=== PATIENT | male | born 1955 | race Caucasian/White ===

== ENCOUNTER 2020-12-24 08:15 | Inpatient (IN) | payer MEDICARE, OTHER, SELFPAY ==
--- NOTE | ~2020-12-24 | US_ITS ---
EXAMINATION: US RETROPERITONEAL LIMITED (RENAL ONLY) CLINICAL INFORMATION: Acute kidney insufficiency. Urinary retention.. COMPARISON: None TECHNIQUE: Grayscale and color imaging of the kidneys FINDINGS: RIGHT KIDNEY: 11.9 x 6.3 x 6.8 cm (SAG x AP x TRV). The kidney is normal in size, contour, and echogenicity. Renal cortical thickness is normal. There is a 3 mm echogenic density in the lower pole with twinkle artifact suggestive of a stone. No focal parenchymal lesions. No hydronephrosis. LEFT KIDNEY: 11.5 x 5.9 x 5.2 cm (SAG x AP x TRV). The kidney is normal in size, contour, and echogenicity. Renal cortical thickness is normal. There is a 7 mm echogenic density with twinkle artifact suggestive of a stone in the midpole. There are 2 simple cysts in the lower pole measuring 1.6 x 1.5 x 1.2 cm and 2.7 x 2.5 x 3.5 cm. No hydronephrosis. US/US renal BI IMPRESSION: Bilateral renal stones. Left renal cysts.
[2020-12-24 08:21] VITALS: BP 144/89; PULSE 108; RESP 19; TEMP 36.6; O2SAT 95; BMI 28.1
--- NOTE | 2020-12-24 09:06 | ED.MALEGU ---
HPI - Male Genitourinary General Chief complaint: Urogenital-Male Stated complaint: bleeding in urine Time Seen by Provider: 12/24/20 09:06 Source: patient Mode of arrival: ambulatory Limitations: no limitations History of Present Illness HPI Narrative: Patient with UTI 3 months ago. Patient with difficulty urinating, burning and occaisional hematuria. Took keflex for 10 days and it was improved. Now with similar symptoms. Patient was seen in [facility] but never seen. MD Complaint: dysuria Onset (ago): month(s) Duration: intermittent Severity: moderate Associated symptoms: Reports blood in urine Related Data Allergies Allergy/AdvReac Type Severity Reaction Status Date / Time No Known Allergies Allergy Verified 12/24/20 09:10 Review of Systems Constitutional: Constitutional: Reports no additional constitutional complaints Eyes: Eyes: Reports no additional eye complaints ENT: Denies dizziness Cardiovascular: Cardiovascular: Reports no additional cardiovascular complaints Respiratory: Respiratory: Reports as per HPI Gastrointestinal: Gastrointestinal: Reports no additional gastrointestinal complaints Musculoskeletal: Musculoskeletal: Reports no additional musculoskeletal complaints Integumentary/Breasts: Skin/Breast: Denies rash Neurologic: Reports system reviewed and no additional complaints, except as documented, Denies dizziness and Denies Sensory deficit (Neuro) Psychiatric: Psychiatric: Denies anxiety PMFSH Past Medical History Medical History (Updated 12/24/20 @ 11:38 by Jose Pedraza MD) Patient denies medical problems Surgical History (Updated 12/24/20 @ 14:17 by Mirella Guadalupe NP) History of tonsillectomy History of tonsillectomy Family History Family History (Updated 12/24/20 @ 14:15 by Mirella Guadalupe NP) Brother Diabetes mellitus Father Lung cancer Mother Stroke Social History Social History (Updated 12/24/20 @ 14:16 by Mirella Guadalupe NP) Household Members: Spouse Patient Tobacco Use Status: Former Tobacco user Years Smoked: quit smoking 6 months ago Advance Directives: No Advance Directives Information Provided: No Physical Exam Vital Signs: Vital Signs: Last Vital Signs Temp 98 F 12/24/20 08:21 Pulse 101 H 12/24/20 11:42 Resp 16 12/24/20 11:42 BP 183/95 H 12/24/20 11:42 Pulse Ox 96 12/24/20 11:42 Body Mass Index 28.1 Const: General: healthy appearing Nutritional Appearance: average body habitus Orientation/consciousness: oriented to person and patient oriented x3 Limitations: no limitations HENMT: Head: Yes normal to inspection Ears: external ears normal General nose exam: Normal external nose present Mouth: Normal oral and palatal mucosa present and oropharynx normal Throat: Yes posterior oropharynx normal Eyes: General: appearance normal, both eyes and all related structures Neck: Other: supple Neck: Yes normal visual inspection Chest: Chest palpation & inspection: normal inspection of the chest Resp: Auscultation: clear to auscultation bilaterally Cardio: Jugular venous distension: no JVD Rate: regular rate Rhythm: regular rhythm Heart sounds: S1 normal heart sound present and S2 normal heart sound present GI: Inspection: Yes normal to inspection Palpation (GI): Soft to palpation, nontender and No hepatosplenomegaly present Auscultation: normal bowel sounds : General: Yes no CVA tenderness Back/Spine/Pelvis: Back: no CVA tenderness Skin: General skin exam: no rashes or lesions noted Neuro: General: oriented to person and patient oriented x3 Cranial nerves: Yes CN's II-XII intact bilaterally Motor exam (neuro): 5/5 motor strength present throughout Sensory Exam: No Sensory deficit (Neuro) Extrem: General: Yes normal to inspection Psych: Appearance: grossly normal Course Course Course Narrative: Bedside ultrasound show a bladder with at least a liter if not more of urine Reevaluation(s) Reevaluation #1: Patient put out 3 L of bloody urine, urine has 3+ bacteria, will culture and start ceftriaxone, renal insufficiency likely to long standing urinary retention, patient also now appears to be a diabetic with glucose over 600. Started fluids and sq insulin will admit Time: 11:32 [facility] - Male Genitourinary Lab Data Result diagrams: 12/24/20 09:36 12/24/20 14:20 Labs: Lab Results 12/24/20 12/24/20 12/24/20 Range/Units 09:36 09:36 09:36 WBC 9.1 (4.8-10.8) X10*3/uL RBC 4.09 L (4.60-5.80) X10*6/uL Hgb 12.2 L (14.0-18.0) g/dl Hct 36.0 L (42-52) % MCV 88.0 (80-98) fL MCH 29.8 (27.0-33.0) pg MCHC 33.9 (31.0-36.0) g/dl RDW 13.3 (11.0-16.0) % Plt Count 437 H (160-400) X10*3/uL MPV 10.5 (9.4-12.4) fL Immature Gran % (Auto) 1.9 H (0.0-0.4) % Neut % (Auto) 66.7 (45-73) % Lymph % (Auto) 13.5 L (20-40) % [place] % (Auto) 17.7 H (2-11) % Eos % (Auto) 0.0 (0-4) % Baso % (Auto) 0.2 (0-2) % Lymph # (Auto) 1.2 (1.2-4.9) X10*3/uL [place] # (Auto) 1.6 H (0.1-1.2) X10*3/uL Eos # (Auto) 0.0 (0.0-0.4) X10*3/uL Baso # (Auto) 0.0 (0.0-0.2) X10*3/uL Abs Immat Gran (auto) 0.17 H (0.00-0.03) X10*3/uL Absolute Neuts (auto) 6.1 (2.0-8.3) X10*3/uL Absolute Nucleated RBC 0.000 (0.0-0.012) X10*3/uL Nucleated RBC % (auto) 0.0 (0.0-0.2) /100WBC Smear Tech's Comments VERIFIED Sodium 127 L (135-145) mmol/L Potassium 5.3 H (3.3-5.1) mmol/L Chloride 94 L (96-108) mmol/L Carbon Dioxide 18 L (22-29) mmol/L Anion Gap 20 (12-20) BUN 52 H (9-16) mg/dL Creatinine 2.24 H (0.5-1.4) mg/dL Estim Creat Clear Calc 32.7 Estimated GFR 29 POC Glucose (60-115) mg/dL Random Glucose 632 H* (60-115) mg/dL Estimat Average Glucose mg/dL Hemoglobin A1c % % Osmolality 316 H (281-305) mosm/kg Calcium 9.3 (8.4-10.2) mg/dL Urine Color Urine Appearance Urine pH Ur Specific [place] Urine Protein (NEG-TRACE) MG/DL Urine Glucose (UA) (NEG) MG/DL Urine Ketones (NEG) MG/DL Urine Blood (NEG) Urine Nitrite (NEG) Ur Leukocyte Esterase (NEG) Urine RBC (0) /HPF Urine WBC (0-4) /HPF Ur Squamous Epith Cells /LPF Urine Bacteria /LPF Ur Random Sodium Ur Random Potassium Ur Random Chloride 12/24/20 12/24/20 12/24/20 Range/Units 09:36 10:02 10:02 WBC (4.8-10.8) X10*3/uL RBC (4.60-5.80) X10*6/uL Hgb (14.0-18.0) g/dl Hct (42-52) % MCV (80-98) fL MCH (27.0-33.0) pg MCHC (31.0-36.0) g/dl RDW (11.0-16.0) % Plt Count (160-400) X10*3/uL MPV (9.4-12.4) fL Immature Gran % (Auto) (0.0-0.4) % Neut % (Auto) (45-73) % Lymph % (Auto) (20-40) % [place] % (Auto) (2-11) % Eos % (Auto) (0-4) % Baso % (Auto) (0-2) % Lymph # (Auto) (1.2-4.9) X10*3/uL [place] # (Auto) (0.1-1.2) X10*3/uL Eos # (Auto) (0.0-0.4) X10*3/uL Baso # (Auto) (0.0-0.2) X10*3/uL Abs Immat Gran (auto) (0.00-0.03) X10*3/uL Absolute Neuts (auto) (2.0-8.3) X10*3/uL Absolute Nucleated RBC (0.0-0.012) X10*3/uL Nucleated RBC % (auto) (0.0-0.2) /100WBC Smear Tech's Comments Sodium (135-145) mmol/L Potassium (3.3-5.1) mmol/L Chloride (96-108) mmol/L Carbon Dioxide (22-29) mmol/L Anion Gap (12-20) BUN (9-16) mg/dL Creatinine (0.5-1.4) mg/dL Estim Creat Clear Calc Estimated GFR POC Glucose (60-115) mg/dL Random Glucose (60-115) mg/dL Estimat Average Glucose 197 mg/dL Hemoglobin A1c % 8.5 % Osmolality (281-305) mosm/kg Calcium (8.4-10.2) mg/dL Urine Color RED Urine Appearance TURBID Urine pH TNP Ur Specific [place] TNP Urine Protein SEE NOTE (NEG-TRACE) MG/DL Urine Glucose (UA) SEE NOTE (NEG) MG/DL Urine Ketones 40 (NEG) MG/DL Urine Blood 3+ H (NEG) Urine Nitrite SEE NOTE (NEG) Ur Leukocyte Esterase SEE NOTE (NEG) Urine RBC TNTC H (0) /HPF Urine WBC TNTC H (0-4) /HPF Ur Squamous Epith Cells TRACE /LPF Urine Bacteria 4+ /LPF Ur Random Sodium TNP Ur Random Potassium TNP Ur Random Chloride TNP 12/24/20 Range/Units 11:39 WBC (4.8-10.8) X10*3/uL RBC (4.60-5.80) X10*6/uL Hgb (14.0-18.0) g/dl Hct (42-52) % MCV (80-98) fL MCH (27.0-33.0) pg MCHC (31.0-36.0) g/dl RDW (11.0-16.0) % Plt Count (160-400) X10*3/uL MPV (9.4-12.4) fL Immature Gran % (Auto) (0.0-0.4) % Neut % (Auto) (45-73) % Lymph % (Auto) (20-40) % [place] % (Auto) (2-11) % Eos % (Auto) (0-4) % Baso % (Auto) (0-2) % Lymph # (Auto) (1.2-4.9) X10*3/uL [place] # (Auto) (0.1-1.2) X10*3/uL Eos # (Auto) (0.0-0.4) X10*3/uL Baso # (Auto) (0.0-0.2) X10*3/uL Abs Immat Gran (auto) (0.00-0.03) X10*3/uL Absolute Neuts (auto) (2.0-8.3) X10*3/uL Absolute Nucleated RBC (0.0-0.012) X10*3/uL Nucleated RBC % (auto) (0.0-0.2) /100WBC Smear Tech's Comments Sodium (135-145) mmol/L Potassium (3.3-5.1) mmol/L Chloride (96-108) mmol/L Carbon Dioxide (22-29) mmol/L Anion Gap (12-20) BUN (9-16) mg/dL Creatinine (0.5-1.4) mg/dL Estim Creat Clear Calc Estimated GFR POC Glucose 495 H* (60-115) mg/dL Random Glucose (60-115) mg/dL Estimat Average Glucose mg/dL Hemoglobin A1c % % Osmolality (281-305) mosm/kg Calcium (8.4-10.2) mg/dL Urine Color Urine Appearance Urine pH Ur Specific [place] Urine Protein (NEG-TRACE) MG/DL Urine Glucose (UA) (NEG) MG/DL Urine Ketones (NEG) MG/DL Urine Blood (NEG) Urine Nitrite (NEG) Ur Leukocyte Esterase (NEG) Urine RBC (0) /HPF Urine WBC (0-4) /HPF Ur Squamous Epith Cells /LPF Urine Bacteria /LPF Ur Random Sodium Ur Random Potassium Ur Random Chloride Discharge Plan Discharge Clinical Impression: Acute urinary retention Diabetes Qualifiers: Diabetes mellitus type: type 2 Diabetes mellitus clinical data specialist insulin use: without clinical data specialist use Diabetes mellitus complication status: without complication Qualified Code(s): E11.9 - Type 2 diabetes mellitus without complications Urinary tract infection Qualifiers: Urinary tract infection type: acute cystitis Hematuria presence: with hematuria Qualified Code(s): N30.01 - Acute cystitis with hematuria Hematuria Qualifiers: Hematuria type: gross Qualified Code(s): R31.0 - Gross hematuria Patient Disposition: Admitted As Inpatient
[2020-12-24] MEDS: Lidocaine HCl 2 % Urojet 10 ML JEL.PF.APP TOPICAL (09:22)
[2020-12-24 09:49] LABS: Basophils Percent Auto 0.2 % (0-2); Hemoglobin 12.2 g/dl (14.0-18.0); Imm Gran Abs Auto 0.17 X10*3/uL (0.00-0.03); Imm Gran Pct Auto 1.9 % (0.0-0.4); Lymphocytes Absolute Auto 1.2 X10*3/uL (1.2-4.9); Lymphocytes Percent Auto 13.5 % (20-40); MANUAL DIFF FLAG SCAN; Mean Corpuscular HGB Conc 33.9 g/dl (31.0-36.0); Mean Corpuscular Hemoglobin 29.8 pg (27.0-33.0); Mean Platelet Volume 10.5 fL (9.4-12.4); Monocytes Absolute Auto 1.6 X10*3/uL (0.1-1.2); Monocytes Percent Auto 17.7 % (2-11); Neutrophils Absolute Auto 6.1 X10*3/uL (2.0-8.3); Neutrophils Percent Auto 66.7 % (45-73); Platelet Count 437 X10*3/uL (160-400); Red Blood Count 4.09 X10*6/uL (4.60-5.80); Red Cell Distribution Width 13.3 % (11.0-16.0); SCAN SMEAR FLAG 1; White Blood Count 9.1 X10*3/uL (4.8-10.8)
[2020-12-24 10:06] LABS: SLIDE REVIEW VERIFIED
[2020-12-24 10:10] LABS: Anion Gap 20 (12-20); Blood Urea Nitrogen 52 mg/dL (9-16); Calcium 9.3 mg/dL (8.4-10.2); Carbon Dioxide 18 mmol/L (22-29); Chloride 94 mmol/L (96-108); Creatinine Clr Calc Pharmacy 32.7; Estimated Glomerular Filt Rate 29; Glucose Random 632 mg/dL (60-115); Potassium 5.3 mmol/L (3.3-5.1); Sodium 127 mmol/L (135-145)
[2020-12-24 10:14] LABS: Urine Blood 3+ (NEG); Urine Ketones 40 MG/DL (NEG)
[2020-12-24 10:16] LABS: Appearance Urine TURBID; Color Urine RED
[2020-12-24 10:22] LABS: UACC CULT YES
[2020-12-24 10:23] LABS: Bacteria Urine 4+ /LPF; RBC Urine TNTC /HPF (0); Squamous Epithelial Cell Urine TRACE /LPF
[2020-12-24 10:24] LABS: WBC Urine TNTC /HPF (0-4)
[2020-12-24] MEDS: Insulin Regular, Human 100 UNIT/ML 3 ML VIAL SUBCUT ×2 (10:30→11:59)
[2020-12-24 11:42] VITALS: BP 183/95; PULSE 101; RESP 16; O2SAT 96
[2020-12-24 11:52] LABS: Glucose, Whole Blood 495 mg/dL (60-115)
[2020-12-24] MEDS: cefTRIAXone sodium 2 GM in 0.9 % Sodium Chloride 50 ML IV (11:58)
[2020-12-24] MEDS: 0.9 % Sodium Chloride 1,000 ML 125 ML IVCONT ×2 (11:59→18:06)
[2020-12-24 13:24] LABS: Estimated Average Glucose 197 mg/dL; Hemoglobin A1c % 8.5 %
--- NOTE | 2020-12-24 13:33 | PC.NURSE ---
pt noted to have clots and urine is now bloody with clots CBI restarted
--- NOTE | 2020-12-24 13:34 | PC.NURSE ---
hospitalist at bedside
[2020-12-24 13:36] LABS: Osmolality, Serum 316 mosm/kg (281-305)
--- NOTE | 2020-12-24 13:59 | P.HPHOSP_ITS ---
History of Present Illness Date of Service: 12/24/20 <Mirella Guadalupe NP - Last Filed: 12/24/20 14:23> Chief Complaint: hematuria <Mirella Guaadlupe NP - Last Filed: 12/24/20 14:23> 65-year-old man presented to the ER with 2 days of urinating blood. He reported prior to that some difficulty with urination. He reported approximately 1 month ago he started having difficulty urinating and burning. His had antibiotics, Keflex around and he took 7 days worth. He reports did that he felt better and then 2 weeks later he started having the same symptoms. He took 10 more days of the antibiotic and felt better. He then reported he started getting symptoms again and read online that he should drink cranberry juice therefore he drank almost a gal of this. And then over the last 2 days he had the blood in his urine and his stomach felt hard. He went to urgent care and then was sent to [facility] where he waited for some time and decided to leave against medical advice. He reported that he has not seen a doctor in many years and the last time he was hospitalize was in the 1980s. He denied fever, chills, nausea, vomiting, diarrhea, recent illness, sick contacts, recent travel. He reported that he felt the so he had been in good health. in the ER he had a Schofield catheter placed which put of 4 L of bloody urine. CBI was started, sodium 127, potassium 5.3, creatinine 2.24. His glucose was noted to be over 600. Urinalysis showed positive urine common urine cultures pending. His blood pressure was also noted to be elevated with systolic blood pressure in 180s with history of hypertension. He was given insulin, ceftriaxone in the ER. He will be admitted for further management treatment of hematuria with multiple other acute problems. <Mirella Guadalupe NP - Last Filed: 12/24/20 14:23> Review of Systems Review of Systems: Denies any recent fever chills or decrease in appetite respiratory denies any shortness of breath coverage production cardiovascular is adjustment of any PND or edema gastrointestinal denies any dysphagia abdominal pain nausea vomiting or diarrhea genitourinary denies any dysuria frequency or hematuria musculoskeletal denies any joint pain or swelling neuropsych denies any weakness or seizures all other systems reviewed are negative <Mirella Guadalupe NP - Last Filed: 12/24/20 14:23> PENDING SALE TO [facility] Medical History: Medical History (Updated 12/26/20 @ 08:58 by Abdullahi Rao MD) Patient denies medical problems <Mirella Guadalupe NP - Last Filed: 12/24/20 14:23> Family History: Family History (Updated 12/24/20 @ 14:15 by Mirella Guadalupe NP) Brother Diabetes mellitus Father Lung cancer Mother Stroke <Mirella Guadalupe NP - Last Filed: 12/24/20 14:23> Surgical History: Surgical History (Updated 12/24/20 @ 14:17 by Mirella Guadalupe NP) History of tonsillectomy History of tonsillectomy <Mirella Guadalupe NP - Last Filed: 12/24/20 14:23> Social History: Social History (Updated 12/24/20 @ 14:16 by Mirella Guadalupe NP) Household Members: Spouse Housing: House Do you presently have visiting nurse or other home services: No Patient Tobacco Use Status: Former Tobacco user Tobacco use type: Cigarette Years Smoked: quit smoking 6 months ago e-Cigarette/Vaping Use: Former Use Second Hand Smoke Exposure: No service: No Current occupational status: retired <Mirella Guadalupe NP - Last Filed: 12/24/20 14:23> Meds Allergies/Adverse reactions: Allergies Allergy/AdvReac Type Severity Reaction Status Date / Time No Known Allergies Allergy Verified 12/24/20 09:10 <Mirella Guadalupe NP - Last Filed: 12/24/20 14:23> Active Medications: Current Medications Generic Name Dose Route Start Last Admin Trade Name Freq PRN Reason Stop Dose Admin Acetaminophen 650 mg 12/24/20 13:56 Acetaminophen 325 Mg Tablet PO Q6H PRN Pain, Mild (Pain Scale 1-3) Sodium Chloride 1,000 mls @ 125 mls/hr 12/24/20 10:30 12/24/20 13:17 Ns IVCONT Infused .Q8H URI Infusion Insulin Human Lispro 0 unit 12/24/20 16:30 Insulin Lispro 100 Unit/Ml 3 Ml Vial SUBCUT QIDACHS URI Protocol Ondansetron HCl 4 mg 12/24/20 13:56 Ondansetron Hcl 4 Mg/2 Ml Vial IVPUSH Q8H PRN Nausea and Vomiting Sodium Chloride 3 ml 12/24/20 16:00 0.9 % Sodium Chloride Flush 3 Ml Syringe IVFLUSH QSHIFT URI <Mirella Guadalupe NP - Last Filed: 12/24/20 14:23> Physical Exam Vital Signs and Narrative: Vital Signs: Last Vital Signs Temp 98 F 12/24/20 08:21 Pulse 101 H 12/24/20 11:42 Resp 16 12/24/20 11:42 BP 183/95 H 12/24/20 11:42 Pulse Ox 96 12/24/20 11:42 Body Mass Index 28.1 <Mirella Guadalupe NP - Last Filed: 12/24/20 14:23> Appearing in no acute distress head is normocephalic atraumatic eyes pupils are PERRLA sclera is anicteric mouth throat mucous membranes are intact and moist neck is supple no lymphadenopathy, no JVD noted lung sounds are clear to auscultation heart regular rate rhythm, clear S1, S2 positive bowel sounds, abdomen is soft, nontender neuro patient is alert x3, no focal deficits <Mirella Guadalupe NP - Last Filed: 12/24/20 14:23> Results Labs CBC and Chem 7: : 12/26/20 06:21 12/25/20 06:16 <Mirella Guadalupe NP - Last Filed: 12/24/20 14:23> Labs: Laboratory Results - last 24 hr 12/24/20 12/24/20 12/24/20 09:36 09:36 09:36 MCV 88.0 MCH 29.8 MCHC 33.9 RDW 13.3 Plt Count 437 H MPV 10.5 Immature Gran % (Auto) 1.9 H Neut % (Auto) 66.7 Lymph % (Auto) 13.5 L Jack % (Auto) 17.7 H Eos % (Auto) 0.0 Baso % (Auto) 0.2 Lymph # (Auto) 1.2 Jack # (Auto) 1.6 H Eos # (Auto) 0.0 Baso # (Auto) 0.0 Abs Immat Gran (auto) 0.17 H Absolute Neuts (auto) 6.1 Absolute Nucleated RBC 0.000 Nucleated RBC % (auto) 0.0 Smear Tech's Comments VERIFIED Anion Gap 20 Estim Creat Clear Calc 32.7 Estimated GFR 29 POC Glucose Random Glucose 632 H* Estimat Average Glucose Hemoglobin A1c % Osmolality 316 H Calcium 9.3 Urine Color Urine Appearance Urine pH Ur Specific [place] Urine Protein Urine Glucose (UA) Urine Ketones Urine Blood Urine Nitrite Ur Leukocyte Esterase Urine RBC Urine WBC Ur Squamous Epith Cells Urine Bacteria 12/24/20 12/24/20 12/24/20 09:36 10:02 11:39 MCV MCH MCHC RDW Plt Count MPV Immature Gran % (Auto) Neut % (Auto) Lymph % (Auto) Jack % (Auto) Eos % (Auto) Baso % (Auto) Lymph # (Auto) Jack # (Auto) Eos # (Auto) Baso # (Auto) Abs Immat Gran (auto) Absolute Neuts (auto) Absolute Nucleated RBC Nucleated RBC % (auto) Smear Tech's Comments Anion Gap Estim Creat Clear Calc Estimated GFR POC Glucose 495 H* Random Glucose Estimat Average Glucose 197 Hemoglobin A1c % 8.5 Osmolality Calcium Urine Color RED Urine Appearance TURBID Urine pH TNP Ur Specific [place] TNP Urine Protein SEE NOTE Urine Glucose (UA) SEE NOTE Urine Ketones 40 Urine Blood 3+ H Urine Nitrite SEE NOTE Ur Leukocyte Esterase SEE NOTE Urine RBC TNTC H Urine WBC TNTC H Ur Squamous Epith Cells TRACE Urine Bacteria 4+ <Mirella Guadalupe NP - Last Filed: 12/24/20 14:23> Assessment and Plan (1) Hematuria: Qualifiers: Hematuria type: gross Qualified Code(s): R31.0 - Gross hematuria <Mirella Guadalupe NP - Last Filed: 12/24/20 14:23> Status: Acute <Mirella Guadalupe NP - Last Filed: 12/24/20 14:23> 65-year-old man presenting to the ER with hematuria and difficulty with urination. Patient reports that he has not seen a primary care provider in over 10 years. He was last in the emergency department in the 1980s. Hematuria with urinary retention. Unknown etiology has been ongoing for several days - Urology consultation - CBI, Schofield catheter - check H&H is evening ANJU. Likely from urinary retention - renal ultrasound - Schofield catheter - follow BMP closely - IV fluids - if no improvement consider nephrology consultation UTI. Likely secondary to urinary retention - Rocephin - follow urine cultures Hyponatremia. Likely from hypovolemia from urinary retention - follow BMP New onset diabetes mellitus. A1c is 8.5 borderline anion gap - sliding scale, ADA diet. -recheck BMP Elevated blood pressure reading. No history of hypertension may be secondary to pain, anxiety - follow blood pressure and had antihypertensive agent if blood pressure remains elevated DVT prophylaxis mechanical compression boots due to hematuria Attending: Dr. Berry Full code <Mirella Guadalupe NP - Last Filed: 12/24/20 14:23> (2) Acute blood loss anemia: Status: Acute <Mirella Guadalupe NP - Last Filed: 12/24/20 14:23>
[2020-12-24 14:29] LABS: Glucose, Whole Blood 377 mg/dL (60-115)
[2020-12-24 15:10] LABS: Anion Gap 16 (12-20); Blood Urea Nitrogen 44 mg/dL (9-16); Calcium 9.3 mg/dL (8.4-10.2); Carbon Dioxide 24 mmol/L (22-29); Chloride 97 mmol/L (96-108); Creatinine Clr Calc Pharmacy 46.4; Estimated Glomerular Filt Rate 44; Glucose Random 433 mg/dL (60-115); Potassium 4.5 mmol/L (3.3-5.1); Sodium 132 mmol/L (135-145)
[2020-12-24 15:14] LABS: COVID-19 Test Negative (Negative); IDNOW Serial# 9DD0AD1C
--- NOTE | 2020-12-24 15:35 | PM.EVENT ---
Event Note Date of Service: 12/24/20 Event Note: Attending Attestation: Patient seen and examined independently and I was present during regalado portion of E/M service. Agree with Martinez Guadalupe NP's history, physical, assessment, and plan. Briefly, this is a 65-year-old gentleman who has not sought medical attention in quite some time presents to the hospital with complaints of hematuria and urinary retention for 2 days. He also endorses that he self-treated himself for what he thought was UTI with Keflex (reportedly used his 's pills). Upon arrival to the ED, patient had a Schofield catheter place with brad hematuria. CBI was initiated. Also noted to have acute kidney injury as well as hyperglycemia with A1c that is elevated. No prior diagnosis of diabetes is indoors. He also has noted to be hypertensive without a prior diagnosis. Ultrasound showed bilateral renal stones. He will be admitted for hematuria and new onset diabetes along with renal stones. Will consult Urology.
[2020-12-24 16:14] LABS: Glucose, Whole Blood 431 mg/dL (60-115)
[2020-12-24] MEDS: 0.9 % Sodium Chloride Flush 3 ML SYRINGE IVFLUSH ×2 (16:18→22:20)
[2020-12-24] MEDS: Insulin Lispro 100 UNIT/ML 3 ML VIAL SUBCUT ×2 (16:18→22:14)
--- NOTE | 2020-12-24 17:29 | PC.NURSE ---
This PCT emptied ruiz bag containing 3250 ml of urine.
[2020-12-24 18:05] VITALS: BP 155/80; PULSE 97; RESP 16; TEMP 36.3; O2SAT 97
[2020-12-24 20:39] LABS: Glucose, Whole Blood 376 mg/dL (60-115)
[2020-12-24 23:22] VITALS: BP 142/75; PULSE 82; RESP 18; TEMP 36.4; O2SAT 99
[2020-12-25] MEDS: 0.9 % Sodium Chloride 1,000 ML 125 ML IVCONT (03:44)
[2020-12-25 07:03] LABS: MANUAL DIFF FLAG NO
[2020-12-25 07:13] LABS: Basophils Percent Auto 0.5 % (0-2); Eosinophils Absolute Auto 0.1 X10*3/uL (0.0-0.4); Eosinophils Percent Auto 0.6 % (0-4); Hematocrit 32.2 % (42-52); Hemoglobin 10.7 g/dl (14.0-18.0); Imm Gran Abs Auto 0.13 X10*3/uL (0.00-0.03); Imm Gran Pct Auto 1.6 % (0.0-0.4); Lymphocytes Absolute Auto 2.1 X10*3/uL (1.2-4.9); Lymphocytes Percent Auto 25.3 % (20-40); Mean Corpuscular HGB Conc 33.2 g/dl (31.0-36.0); Mean Corpuscular Hemoglobin 29.7 pg (27.0-33.0); Mean Corpuscular Volume 89.4 fL (80-98); Mean Platelet Volume 10.4 fL (9.4-12.4); Monocytes Absolute Auto 1.1 X10*3/uL (0.1-1.2); Monocytes Percent Auto 13.7 % (2-11); Neutrophils Absolute Auto 4.8 X10*3/uL (2.0-8.3); Neutrophils Percent Auto 58.3 % (45-73); Platelet Count 381 X10*3/uL (160-400); Red Cell Distribution Width 13.2 % (11.0-16.0); White Blood Count 8.3 X10*3/uL (4.8-10.8)
[2020-12-25 07:16] LABS: INTERNATIONAL NORM RATIO 1.1 (0.9-1.1); Prothrombin Time 13.4 SEC (10.8-13.0)
[2020-12-25 07:18] VITALS: BP 118/57; PULSE 74; RESP 18; TEMP 36; O2SAT 96
[2020-12-25 07:33] LABS: Glucose, Whole Blood 159 mg/dL (60-115)
[2020-12-25 07:36] LABS: Anion Gap 10 (12-20); Blood Urea Nitrogen 31 mg/dL (9-16); Carbon Dioxide 27 mmol/L (22-29); Chloride 104 mmol/L (96-108); Cholesterol 171 mg/dL; Creatinine Clr Calc Pharmacy 79.6; Estimated Glomerular Filt Rate > 60; HDL Cholesterol 21 mg/dL; LDL Cholesterol Calculated 121 mg/dl; Potassium 4.4 mmol/L (3.3-5.1); Sodium 137 mmol/L (135-145); Triglycerides 149 mg/dL
[2020-12-25] MEDS: Insulin Lispro 100 UNIT/ML 3 ML VIAL SUBCUT ×3 (07:37→21:20)
[2020-12-25 07:56] LABS: Thyroid Stimulating Hormone 0.63 uIU/mL (0.32-4.0)
[2020-12-25 08:04] LABS: Calcium 8.9 mg/dL (8.4-10.2); Glucose Random 149 mg/dL (60-115)
[2020-12-25 11:40] LABS: Glucose, Whole Blood 150 mg/dL (60-115)
[2020-12-25] MEDS: cefTRIAXone sodium 1 GM in 0.9 % Sodium Chloride 50 ML IV (11:47)
--- NOTE | 2020-12-25 12:19 | MHC.CM.PN ---
IMM 12/25/20, EMR REVIEWED PT ADMITTED W/HEMATURIA, URINARY RETENTIONA AND UTI, PT REMAINS ON CBI, CM MET W/PT WHO IS A&O X4, PT REPORTS HE LIVES W/ AND HAS TWO ADULT CHILDREN WHO LIVE AWAY FROM HOME, PT IS INDEPENDENT W/ALL CARE, NO DME AND NO HOME SERVICES, PT HAS NO PCP AND REPORTS HIS IS HIS HCP, COPY HAS BEEN REQUESTED. D/C PLAN HOME SELF CARE, FAMILY FOR TRANSPORT HCP: FLORA MONTEZ CELL [phone]
--- NOTE | 2020-12-25 14:09 | MHC.CLN ---
NUTRITION EDUCATION NEWLY DIAGNOSED DIABETIC. PROVIDED INITIAL DIET EDUCATION, 2000 KCAL PROVIDES 28 KCAL/KG CMW. PATIENT SHOULD FOLLOW UP WITH OUTPATIENT DIETITIAN FOR REINFORCEMENT. RECEPTIVE TO INFORMATION.
--- NOTE | 2020-12-25 14:31 | HO.PM.IMPN ---
Subjective Subjective Date of Service: 12/25/20 Interval History: Offers no acute complaints, no dysuria, blood sugars improved, patient denies abdominal pain, no nausea no vomiting, urine light pink color CBI running. ROS General no headache, no dizziness no fever chills. CVS no chest pain, no palpitation. Respiratory no cough, no sob. Gastrointestinal no nausea, no vomiting, no abdominal pain Physical Exam Vital Signs: Vital Signs: Last Vital Signs Temp 96.8 F 12/25/20 07:18 Pulse 74 12/25/20 07:18 Resp 18 12/25/20 07:18 BP 118/57 L 12/25/20 07:18 Pulse Ox 96 12/25/20 07:18 Body Mass Index 28.1 General resting comfortably in no acute distress. Neck is supple no JVD. CVS regular rate rhythm, Respiratory lungs clear to auscultation, no respiratory distress, no wheeze, no rhonchi. Gastrointestinal abdomen soft, nontender, bowel sounds audible, no guarding , no rigidity. No CVA tenderness Extremities no edema. Neuro nonfocal , speech clear. Skin no rash CBI with light pink urine Objective Data Current Medications Generic Name Dose Route Start Last Admin Trade Name Freq PRN Reason Stop Dose Admin Acetaminophen 650 mg 12/24/20 13:56 Acetaminophen 325 Mg Tablet PO Q6H PRN Pain, Mild (Pain Scale 1-3) Sodium Chloride 1,000 mls @ 125 mls/hr 12/24/20 10:30 12/25/20 07:19 Ns IVCONT Not Given .Q8H [facility] Ceftriaxone Sodium 1 gm/ 50 mls @ 100 mls/hr 12/25/20 11:00 12/25/20 12:31 Sodium Chloride IV Infused Q24H [facility] Infusion Insulin Human Lispro 0 unit 12/24/20 16:30 12/25/20 11:48 Insulin Lispro 100 Unit/Ml 3 Ml Vial SUBCUT Not Given QIDACHS [facility] Protocol Ondansetron HCl 4 mg 12/24/20 13:56 Ondansetron Hcl 4 Mg/2 Ml Vial IVPUSH Q8H PRN Nausea and Vomiting Sodium Chloride 3 ml 12/24/20 16:00 12/25/20 12:31 0.9 % Sodium Chloride Flush 3 Ml Syringe IVFLUSH Not Given QSHIFT [facility] Labs CBC & Chem 7: 12/25/20 06:16 06/16/21 06:16 Labs: Laboratory Results - last 24 hr 12/24/20 12/24/20 12/24/20 14:15 14:20 16:10 WBC RBC Hgb Hct MCV MCH MCHC RDW Plt Count MPV Immature Gran % (Auto) Neut % (Auto) Lymph % (Auto) [place] % (Auto) Eos % (Auto) Baso % (Auto) Lymph # (Auto) [place] # (Auto) Eos # (Auto) Baso # (Auto) Abs Immat Gran (auto) Absolute Neuts (auto) Absolute Nucleated RBC Nucleated RBC % (auto) PT INR Sodium 132 L Potassium 4.5 Chloride 97 Carbon Dioxide 24 Anion Gap 16 BUN 44 H Creatinine 1.58 H Estim Creat Clear Calc 46.4 Estimated GFR 44 POC Glucose 431 H* Random Glucose 433 H* Calcium 9.3 Triglycerides Cholesterol LDL Cholesterol, Calc HDL Cholesterol TSH COVID-19 (SUMEET) Negative COVID-19 Clin Com See Note 12/24/20 12/25/20 12/25/20 20:31 06:16 06:16 WBC 8.3 RBC 3.60 L Hgb 10.7 L Hct 32.2 L MCV 89.4 MCH 29.7 MCHC 33.2 RDW 13.2 Plt Count 381 MPV 10.4 Immature Gran % (Auto) 1.6 H Neut % (Auto) 58.3 Lymph % (Auto) 25.3 [place] % (Auto) 13.7 H Eos % (Auto) 0.6 Baso % (Auto) 0.5 Lymph # (Auto) 2.1 [place] # (Auto) 1.1 Eos # (Auto) 0.1 Baso # (Auto) 0.0 Abs Immat Gran (auto) 0.13 H Absolute Neuts (auto) 4.8 Absolute Nucleated RBC 0.000 Nucleated RBC % (auto) 0.0 PT 13.4 H INR 1.1 Sodium Potassium Chloride Carbon Dioxide Anion Gap BUN Creatinine Estim Creat Clear Calc Estimated GFR POC Glucose 376 H* Random Glucose Calcium Triglycerides Cholesterol LDL Cholesterol, Calc HDL Cholesterol TSH COVID-19 (SUMEET) COVID-19 Clin Com 12/25/20 12/25/20 12/25/20 06:16 06:16 07:17 WBC RBC Hgb Hct MCV MCH MCHC RDW Plt Count MPV Immature Gran % (Auto) Neut % (Auto) Lymph % (Auto) [place] % (Auto) Eos % (Auto) Baso % (Auto) Lymph # (Auto) [place] # (Auto) Eos # (Auto) Baso # (Auto) Abs Immat Gran (auto) Absolute Neuts (auto) Absolute Nucleated RBC Nucleated RBC % (auto) PT INR Sodium 137 Potassium 4.4 Chloride 104 Carbon Dioxide 27 Anion Gap 10 L BUN 31 H Creatinine 0.92 Estim Creat Clear Calc 79.6 Estimated GFR > 60 POC Glucose 159 H Random Glucose 149 H D Calcium 8.9 Triglycerides 149 Cholesterol 171 LDL Cholesterol, Calc 121 HDL Cholesterol 21 TSH 0.63 COVID-19 (SUMEET) COVID-19 [facility] 12/25/20 11:12 WBC RBC Hgb Hct MCV MCH MCHC RDW Plt Count MPV Immature Gran % (Auto) Neut % (Auto) Lymph % (Auto) [place] % (Auto) Eos % (Auto) Baso % (Auto) Lymph # (Auto) [place] # (Auto) Eos # (Auto) Baso # (Auto) Abs Immat Gran (auto) Absolute Neuts (auto) Absolute Nucleated RBC Nucleated RBC % (auto) PT INR Sodium Potassium Chloride Carbon Dioxide Anion Gap BUN Creatinine Estim Creat Clear Calc Estimated GFR POC Glucose 150 H Random Glucose Calcium Triglycerides Cholesterol LDL Cholesterol, Calc HDL Cholesterol TSH COVID-19 (SUMEET) COVID-19 [facility] Microbiology Microbiology Results: Microbiology 12/24/20 11:47 Blood Culture - Preliminary Blood - Venous No growth after 24 hours. 12/24/20 11:45 Blood Culture - Preliminary Blood - Venous No growth after 24 hours. 12/24/20 Unknown Urine Culture - Preliminary Urine Schofield Port Gram negative anne Quality Stroke Does the patient have a stroke diagnosis?: No VTE Prior VTE?: No VTE Risk Level:: Medical - moderate - high VTE Device Contraindication: N/A - Device Ordered VTE Drug Contraindication: N/A - Med Ordered Assessment and Plan (1) Hematuria: Status: Acute (2) Acute urinary retention: Status: Acute (3) Urinary tract infection: Status: Acute (4) Diabetes: Status: Acute (5) Acute blood loss anemia: Status: Acute Assessment and Plan: 65-year-old man presenting to the ER with hematuria and difficulty with urination. Patient reports that he has not seen a primary care provider in over 10 years. He was last in the emergency department in the . Hematuria likely due to urinary tract infection, renal ultrasound showed no obstructive stone, it showed bilateral renal stone, no hydronephrosis, CBI ongoing with light pink urine will clamp CBI for 4 hours if no hematuria than DC CBI, await Urology consultation, hematocrit dropped but stable. Acute blood loss anemia due to hematuria, follow CBC, patient asymptomatic hold blood transfusion. ANJU. Likely from hyperglycemia, renal ultrasound showed no retention, renal function normalized with IV hydration , DC IV fluids treat diabetes and infection UTI. Urine culture grew Gram-negative rods continue IV ceftriaxone on follow final urine culture Hyponatremia. Likely from hyperglycemia, sodium improved New onset diabetes mellitus. A1c is 8.5, blood sugar improved to 159, will DC IV fluid place patient on Glucophage, will receive teachings for hypo and hyperglycemia Will provide information about diabetic diet, will learn how to check blood sugars. Elevated blood pressure on admission, No history of hypertension, blood pressure improved DVT prophylaxis mechanical compression boots due to hematuria Full code
[2020-12-25 15:16] VITALS: BP 136/71; PULSE 77; RESP 19; TEMP 37.1; O2SAT 97
--- NOTE | 2020-12-25 16:03 | MHC.CM.PN ---
CM MET W/PT AND PT'S FLORA REGARDING PCP, PER PT HE HAS CHOSEN WILMA JIMENEZ, CM CONTACTED DR JIMENEZ'S OFFICE AND SCHEDULED PT A NEW PT APPT ON 02/05/21 AT 10AM, THIS WAS EARLIEST CM COULD GET PT IN FOR AN APPT, PT GIVEN APPT INFORMATION W/DIRECTIONS TO CALL 'S OFFICE IF THEY WOULD LIKE TO CHANGE FROM IN PERSON TO TELEHEALTH APPT. PT ALSO REQUESTED TO COMPLETE HCP W/CM. HCP WAS COMPLETED, PT GIVEN ORIGINAL AND THREE COPIES, COPY UPLOADED TO [employer] AND PLACED IN CHART. HEALTH CARE AGENT: FLORA MONTEZ H:[phone], CELL: [phone] ALTERNATE: PT DECLINED TO CHOSE ALTERNATE AT THIS TIME
[2020-12-25 16:12] LABS: Glucose, Whole Blood 186 mg/dL (60-115)
--- NOTE | 2020-12-25 18:36 | PC.NURSE ---
CBI clamped at 1500, urine red tinged, urologist at bedside, order to keep CBI clamped until tomorrow unless patient is having pain or discomfort. at this time patient denies any pain or discomfort.
[2020-12-25 20:33] LABS: Glucose, Whole Blood 255 mg/dL (60-115)
[2020-12-26] VITALS: BP 131/71; PULSE 73; RESP 16; TEMP 36.3; O2SAT 97
[2020-12-26] MEDS: 0.9 % Sodium Chloride 1,000 ML 125 ML IVCONT (02:44)
[2020-12-26 04:25] VITALS: BP 129/69; PULSE 74; RESP 16; TEMP 36.2; O2SAT 97
[2020-12-26 06:59] LABS: MANUAL DIFF FLAG NO
[2020-12-26 07:08] LABS: Basophils Absolute Auto 0.1 X10*3/uL (0.0-0.2); Basophils Percent Auto 0.5 % (0-2); Eosinophils Absolute Auto 0.1 X10*3/uL (0.0-0.4); Hematocrit 28.8 % (42-52); Hemoglobin 9.6 g/dl (14.0-18.0); Imm Gran Abs Auto 0.39 X10*3/uL (0.00-0.03); Imm Gran Pct Auto 3.7 % (0.0-0.4); Lymphocytes Absolute Auto 2.5 X10*3/uL (1.2-4.9); Lymphocytes Percent Auto 23.5 % (20-40); Mean Corpuscular HGB Conc 33.3 g/dl (31.0-36.0); Mean Corpuscular Hemoglobin 29.7 pg (27.0-33.0); Mean Corpuscular Volume 89.2 fL (80-98); Mean Platelet Volume 10.1 fL (9.4-12.4); Monocytes Absolute Auto 1.1 X10*3/uL (0.1-1.2); Monocytes Percent Auto 10.3 % (2-11); Neutrophils Absolute Auto 6.4 X10*3/uL (2.0-8.3); Platelet Count 363 X10*3/uL (160-400); Red Blood Count 3.23 X10*6/uL (4.60-5.80); Red Cell Distribution Width 13.2 % (11.0-16.0); White Blood Count 10.4 X10*3/uL (4.8-10.8)
[2020-12-26 07:15] VITALS: BP 122/65; PULSE 70; RESP 20; TEMP 36.2; O2SAT 96
[2020-12-26 07:15] LABS: Glucose, Whole Blood 129 mg/dL (60-115)
--- NOTE | 2020-12-26 08:52 | PM.UROCN ---
History of Present Illness Consult details Consult date: 12/25/20 Narrative: Sarita is a pleasant 65-year-old male Consultation regarding hematuria and urinary retention Admitted with hematuria. Schofield catheter placed. 4 L of fluid retained Now with gentle CBI and resolving hematuria Microbiology shows urinary tract infection with appropriate antibiotics Creatinine has significantly improved to normal range with catheter Discussed retention episode with patient and Due to high load in bladder would benefit from bladder rest and cycling Recommend Schofield catheter remain for 3-4 weeks in can be removed as outpatient Can transition to night bag use with cap during the day PMFSH Past Medical History Medical History (Updated 12/25/20 @ 14:35 by Kimberlee Pagan MD) Patient denies medical problems Family History Family History (Updated 12/24/20 @ 14:15 by Mirella Guadalupe NP) Brother Diabetes mellitus Father Lung cancer Mother Stroke Surgical History Surgical History (Updated 12/24/20 @ 14:17 by Mirella Guadalupe NP) History of tonsillectomy History of tonsillectomy Social History Social History (Updated 12/24/20 @ 14:16 by Mirella Guadalupe NP) Household Members: Spouse Housing: House Do you presently have visiting nurse or other home services: No Patient Tobacco Use Status: Former Tobacco user Tobacco use type: Cigarette Years Smoked: quit smoking 6 months ago e-Cigarette/Vaping Use: Former Use Second Hand Smoke Exposure: No service: No Current occupational status: retired [employer] Allergies Allergy/AdvReac Type Severity Reaction Status Date / Time No Known Allergies Allergy Verified 12/24/20 09:10 Active Medications: Current Medications Generic Name Dose Route Start Last Admin Trade Name Freq PRN Reason Stop Dose Admin Acetaminophen 650 mg 12/24/20 13:56 Acetaminophen 325 Mg Tablet PO Q6H PRN Pain, Mild (Pain Scale 1-3) Ceftriaxone Sodium 1 gm/ 50 mls @ 100 mls/hr 12/25/20 11:00 12/25/20 12:31 Sodium Chloride IV Infused Q24H [facility] Infusion Insulin Human Lispro 0 unit 12/24/20 16:30 12/26/20 07:43 Insulin Lispro 100 Unit/Ml 3 Ml Vial SUBCUT Not Given QIDACHS [facility] Protocol Ondansetron HCl 4 mg 12/24/20 13:56 Ondansetron Hcl 4 Mg/2 Ml Vial IVPUSH Q8H PRN Nausea and Vomiting Sodium Chloride 3 ml 12/24/20 16:00 12/26/20 08:44 0.9 % Sodium Chloride Flush 3 Ml Syringe IVFLUSH Not Given QSHIFT [facility] Physical Exam Vital Signs: Vital Signs: Last Vital Signs Temp 97.2 F 12/26/20 07:15 Pulse 70 12/26/20 07:15 Resp 20 12/26/20 07:15 BP 122/65 12/26/20 07:15 Pulse Ox 96 12/26/20 07:15 Body Mass Index 28.1 Const: General: cooperative, healthy appearing, comfortable and no acute distress Nutritional Appearance: average body habitus Orientation/consciousness: oriented to person, oriented to place and oriented to time Eyes: General: appearance normal, both eyes and all related structures Chest: Chest palpation & inspection: normal inspection of the chest Resp: Effort & Inspection: normal respiratory effort Cardio: Rate: regular rate GI: Inspection: Yes normal to inspection Skin: Hair: normal Neuro: General: oriented to person, oriented to place and oriented to time Extrem: General: Yes normal to inspection Results Labs Result diagrams: 12/26/20 06:21 12/25/20 06:16 Labs: Abnormal lab results 12/25/20 12/25/20 12/25/20 Range/Units 11:12 16:08 20:26 RBC (4.60-5.80) X10*6/uL Hgb (14.0-18.0) g/dl Hct (42-52) % Immature Gran % (Auto) (0.0-0.4) % Abs Immat Gran (auto) (0.00-0.03) X10*3/uL POC Glucose 150 H 186 H 255 H (60-115) mg/dL 12/26/20 12/26/20 Range/Units 06:21 07:11 RBC 3.23 L (4.60-5.80) X10*6/uL Hgb 9.6 L (14.0-18.0) g/dl Hct 28.8 L (42-52) % Immature Gran % (Auto) 3.7 H (0.0-0.4) % Abs Immat Gran (auto) 0.39 H (0.00-0.03) X10*3/uL POC Glucose 129 H (60-115) mg/dL Short CBC 12/26/20 Range/Units 06:21 WBC 10.4 (4.8-10.8) X10*3/uL Hgb 9.6 L (14.0-18.0) g/dl Hct 28.8 L (42-52) % Plt Count 363 (160-400) X10*3/uL Urine 12/24/20 Range/Units 10:02 Urine Color RED Urine Appearance TURBID Urine pH TNP Ur Specific [place] TNP Urine Protein SEE NOTE (NEG-TRACE) MG/DL Urine Glucose (UA) SEE NOTE (NEG) MG/DL All other labs normal. Assessment and Plan (1) Acute urinary retention: Status: Acute (2) Urinary tract infection: Qualifiers: Hematuria presence: with hematuria Urinary tract infection type: acute cystitis Qualified Code(s): N30.01 - Acute cystitis with hematuria Status: Acute No acute urologic issue Acute renal insult resolved with Schofield catheter placement UTI being managed with antibiotics would recommend 7 day course for complicated cystitis Review is outpatient for Schofield catheter removal Procedures Date of Service Date of Service: 12/25/20
[2020-12-26] MEDS: cefTRIAXone sodium 1 GM in 0.9 % Sodium Chloride 50 ML IV (10:17)
[2020-12-26] MEDS: Finasteride 5 MG TABLET PO (10:18)
[2020-12-26 11:13] LABS: Glucose, Whole Blood 128 mg/dL (60-115)
--- NOTE | 2020-12-26 13:30 | P.DS_ITS ---
DS: Providers Provider Date of Service: 12/26/20 Date of admission: 12/24/20 13:56 Primary care physician: Wayne Galdamez MD Consults: 12/24/20 13:58 Consult to Urology Routine Consulting Provider: Abdullahi Rao Reason for consultation: hematuria Has provider been notified: No DS: Diagnosis Discharge Diagnosis (1) Acute urinary retention: Status: Acute (2) Urinary tract infection: Status: Acute DS: Medications Discharge Medications Home Medications: Previous Rx's Medication Instructions Recorded alcohol swabs [Alcohol Wipes] 1 pad TOPICAL QIDACHS #200 ea 12/26/20 blood sugar diagnostic [FreeStyle #100 ea 12/26/20 Lite Strips] blood-glucose meter [FreeStyle #1 ea 12/26/20 Lite Meter] cefuroxime axetil 500 mg PO Q12H 7 Days #14 tab 12/26/20 ferrous sulfate 325 mg PO DAILY #30 tab 12/26/20 finasteride [Proscar] 5 mg PO DAILY #30 tab 12/26/20 lancets [FreeStyle Lancets] #100 ea 12/26/20 tamsulosin 0.4 mg PO BEDTIME #30 cap 12/26/20 DS: Summary Hospital Course Hospital Course: Chief Complaint: hematuria 65-year-old man presented to the ER with 2 days of urinating blood. He reported prior to that some difficulty with urination. He reported approximately 1 month ago he started having difficulty urinating and burning. His had antibiotics, Keflex around and he took 7 days worth. He reports did that he felt better and then 2 weeks later he started having the same symptoms. He took 10 more days of the antibiotic and felt better. He then reported he started getting symptoms again and read online that he should drink cranberry juice therefore he drank almost a gal of this. And then over the last 2 days he had the blood in his urine and his stomach felt hard. He went to urgent care and then was sent to [facility] where he waited for some time and decided to leave against medical advice. He reported that he has not seen a doctor in many years and the last time he was hospitalize was in the 1980s. He denied fever, chills, nausea, vomiting, diarrhea, recent illness, sick contacts, recent travel. He reported that he felt the so he had been in good health. in the ER he had a Schofield catheter placed which put of 4 L of bloody urine. CBI was started, sodium 127, potassium 5.3, creatinine 2.24. His glucose was noted to be over 600. Urinalysis showed positive urine common urine cultures pending. His blood pressure was also noted to be elevated with syst olic blood pressure in 180s with history of hypertension. He was given insulin, ceftriaxone in the ER. He will be admitted for further management treatment of hematuria with multiple other acute problems. Hospital course 65-year-old man presenting to the ER with hematuria and difficulty with urination in emergency room Schofield catheter placed on 4 L of bloody urine was drained subsequently CBI was started and patient admitted to medical floor, urine culture grew E coli ESBL negative patient treated with IV ceftriaxone, blood cultures x2 are negative, patient noted to have drop in hematocrit but he remained hemodynamically stable, has been placed on iron supplement, with continued CBI urine has now cleared, CBI discontinued, patient was seen by Dr. Rao he recommended to continue Schofield catheter for 3-4 weeks and placed patient on Flomax and finasteride patient is now being discharged home on 7 more days of by mouth Ceftin, he has been recommended to cap Schofield during the daytime and use of Schofield bag at nighttime, he will have outpatient follow-up with Urology in 3-4 weeks, on admission patient was noted to have elevated creatinine likely due to dehydration and urinary retention renal function has normalized. Patient also diagnosed to have new onset diabetes mellitus hemoglobin A1c is 8.5 patient receive nutrition consultation he is optimistic that he is going to follow diet he is being discharged home with freestyle glucometer lancets, alcohol wipes and strips, he has been recommended to check blood sugar twice daily and have outpatient follow-up with primary care physician to initiate oral hypoglycemics He has received teachings for hypo and hyperglycemia Mild Hyponatremia on admission has resolved and was likely due to hyperglycemia Time Spent with Patient Time attestation: Total time spent providing and/or coordinating discharge services: Discharge coordination time: Greater than 30 minutes Quality: Stroke Does the patient have a stroke diagnosis?: No Physical Exam Vital Signs: Vital Signs: Last Vital Signs Temp 97.2 F 12/26/20 07:15 Pulse 70 12/26/20 07:15 Resp 20 12/26/20 07:15 BP 122/65 12/26/20 07:15 Pulse Ox 96 12/26/20 07:15 Body Mass Index 28.1 General resting comfortably in no acute distress. Neck is supple no JVD. CVS regular rate rhythm, Respiratory lungs clear to auscultation, no respiratory distress, no wheeze, no rhonchi. Gastrointestinal abdomen soft, nontender, bowel sounds audible, no guarding , no rigidity. No CVA tenderness Extremities no edema. Neuro nonfocal , speech clear. Skin no rash DS: Data Data Completed and Pending Labs on day of discharge: Laboratory Results - last 24 hr 12/25/20 12/25/20 12/26/20 16:08 20:26 06:21 WBC 10.4 RBC 3.23 L Hgb 9.6 L Hct 28.8 L MCV 89.2 MCH 29.7 MCHC 33.3 RDW 13.2 Plt Count 363 MPV 10.1 Immature Gran % (Auto) 3.7 H Neut % (Auto) 61.0 Lymph % (Auto) 23.5 [place] % (Auto) 10.3 Eos % (Auto) 1.0 Baso % (Auto) 0.5 Lymph # (Auto) 2.5 [place] # (Auto) 1.1 Eos # (Auto) 0.1 Baso # (Auto) 0.1 Abs Immat Gran (auto) 0.39 H Absolute Neuts (auto) 6.4 Absolute Nucleated RBC 0.000 Nucleated RBC % (auto) 0.0 POC Glucose 186 H 255 H 12/26/20 12/26/20 07:11 11:10 WBC RBC Hgb Hct MCV MCH MCHC RDW Plt Count MPV Immature Gran % (Auto) Neut % (Auto) Lymph % (Auto) [place] % (Auto) Eos % (Auto) Baso % (Auto) Lymph # (Auto) [place] # (Auto) Eos # (Auto) Baso # (Auto) Abs Immat Gran (auto) Absolute Neuts (auto) Absolute Nucleated RBC Nucleated RBC % (auto) POC Glucose 129 H 128 H Preliminary micro results at discharge 12/24/20 11:47 Blood Culture - Preliminary Blood - Venous No growth after 24 hours. 12/24/20 11:45 Blood Culture - Preliminary Blood - Venous No growth after 24 hours. Discharge Plan Discharge Patient Disposition: Home, Self-Care Discharge Diagnosis: Hematuria Urinary tract infection Urinary retention Acute blood loss anemia New onset diabetes mellitus Referrals: Wayne Galdamez MD [Primary Care Provider] - 1 Week Discharge Medications: New tamsulosin 0.4 mg Capsule 0.4 mg PO BEDTIME Qty: 30 RF: 0 finasteride [Proscar] 5 mg Tablet 5 mg PO DAILY Qty: 30 RF: 0 cefuroxime axetil 500 mg tablet 500 mg PO Q12H 7 Days Qty: 14 RF: 0 (DME) lancets [FreeStyle Lancets] 28 gauge misc See Rx Instructions .ROUTE .MEDSUPPLY Qty: 100 RF: 0 (DME) FreeStyle Lite Strips Strip See Rx Instructions .ROUTE .MEDSUPPLY Qty: 100 RF: 0 alcohol swabs [Alcohol Wipes] Pads, Medicated 1 pad topical QIDACHS Qty: 200 RF: 0 (DME) blood-glucose meter [FreeStyle Lite Meter] Kit See Rx Instructions .ROUTE .MEDSUPPLY Qty: 1 RF: 0 ferrous sulfate 325 mg (65 mg iron) tablet 325 mg PO DAILY Qty: 30 RF: 0 Discharge Orders: Discharge Order (Routine); Ordered 12/26/20 Ordered By: Kimberlee Pagan Diet: diabetic diet Activity on Discharge: As tolerated Stand Alone Forms: Patient Portal Discharge page Other Ambulatory Orders: Complete Blood Count no Diff (Routine) Timeframe: [id number] Facility: [facility] - Location: Laboratory Ordered By: Kimberlee Pagan Care Plan Goals: You have been diagnosed to have diabetes follow diabetic diet check blood sugar twice daily and keep a log and follow-up with primary care physician Your been diagnosed to have urinary tract infection take Ceftin twice daily for 7 days You also noted to have urinary retention therefore continue Schofield catheter for 3-4 weeks use leg back at night time and cap Schofield during daytime have outpatient follow-up with Dr. Abdullahi Rao in 4 weeks call to make appointment Health Concerns: Diabetes mellitus Urinary retention and urinary tract infection Hematuria your blood count dropped due to blood and urine, will place you on iron supplement follow CBC in next 1 week Plan of Treatment: Outpatient follow-up with Dr. Wayne Galdamez next month she had 1 on admit Assessment: as above
--- NOTE | 2020-12-26 15:13 | MHC.CM.PN ---
PT DISCHARGING TODAY HOME SELF CARE W/VÁZQUEZ CATHETER TO BE TAKEN OUT BY DR. MUÑOZ, FOR TRANSPORT. PCP: WILMA JIMENEZ 02/05/21 10AM UROLOGY: FIDE MUÑOZ 01/23/21 9:15AM
== END 2020-12-26 16:38 | disposition home or self-care (01) | DRG 690 ==
LOC: HO.ED 11:38 → HO.EDOVER 14:40 → HO.S3 15:55
PROVIDERS: Nurse Practitioner Acute Care; Admitting Provider Psychiatry & Neurology Psychiatry; Emergency Provider Emergency Medicine; PCP Family Medicine; Visit Provider Hospitalist
DX: N39.0 Urinary tract infection, site not specified (principal); N17.9 Acute kidney failure, unspecified; D62 Acute posthemorrhagic anemia; E87.1 Hypo-osmolality and hyponatremia; R31.0 Gross hematuria; R03.0 Elevated blood-pressure reading, without diagnosis of hypertension; B96.20 Unspecified Escherichia coli [E. coli] as the cause of diseases classified elsewhere; E86.0 Dehydration; R33.9 Retention of urine, unspecified; E11.65 Type 2 diabetes mellitus with hyperglycemia; Z20.822 Contact with and (suspected) exposure to COVID-19; Z87.891 Personal history of nicotine dependence; Z79.899 Other long term (current) drug therapy
CPT/HCPCS: 36415; 76775; 80048; 80061; 81001; 82947; 83036; 83930; 84443; 85025; 85610; 87040; 87086; 87088; 87186; 87635; 99284; J0696

== ENCOUNTER → 2021-01-24 08:52 | Outpatient (BNVA) | payer MEDICARE, OTHER, SELFPAY | PROVIDERS: PCP Family Medicine; Visit Provider Urology | DX: N40.1 Benign prostatic hyperplasia with lower urinary tract symptoms (principal); N13.8 Other obstructive and reflux uropathy | CPT/HCPCS: 51700; 51702; 51798; 99212 ==

== ENCOUNTER 2021-02-05 10:22 | Outpatient (REF) | payer MEDICARE, OTHER, SELFPAY ==
[2021-02-05 13:28] LABS: MANUAL DIFF FLAG NO
[2021-02-05 13:38] LABS: Basophils Percent Auto 0.5 % (0-2); Eosinophils Absolute Auto 0.1 X10*3/uL (0.0-0.4); Eosinophils Percent Auto 1.6 % (0-4); Hematocrit 41.2 % (42-52); Hemoglobin 13.3 g/dl (14.0-18.0); Imm Gran Abs Auto 0.03 X10*3/uL (0.00-0.03); Imm Gran Pct Auto 0.4 % (0.0-0.4); Lymphocytes Absolute Auto 1.8 X10*3/uL (1.2-4.9); Lymphocytes Percent Auto 21.6 % (20-40); Mean Corpuscular HGB Conc 32.3 g/dl (31.0-36.0); Mean Corpuscular Hemoglobin 28.4 pg (27.0-33.0); Mean Platelet Volume 10.3 fL (9.4-12.4); Monocytes Absolute Auto 0.7 X10*3/uL (0.1-1.2); Monocytes Percent Auto 8.2 % (2-11); Neutrophils Absolute Auto 5.8 X10*3/uL (2.0-8.3); Neutrophils Percent Auto 67.7 % (45-73); Platelet Count 406 X10*3/uL (160-400); Red Blood Count 4.68 X10*6/uL (4.60-5.80); Red Cell Distribution Width 14.7 % (11.0-16.0); White Blood Count 8.5 X10*3/uL (4.8-10.8)
[2021-02-05 13:54] LABS: Alanine Aminotransferase 12 U/L (0-40); Albumin Level 4.1 g/dL (3.5-5.0); Alkaline Phosphatase 66 U/L (39-117); Anion Gap 12 (12-20); Aspartate Amino Transferase 15 U/L (5-37); Bilirubin Total 0.7 mg/dL (0.0-1.0); Blood Urea Nitrogen 11 mg/dL (9-16); Calcium 9.5 mg/dL (8.4-10.2); Carbon Dioxide 25 mmol/L (22-29); Chloride 103 mmol/L (96-108); Cholesterol 255 mg/dL; Estimated Glomerular Filt Rate > 60; Glucose Fasting 123 mg/dL (60-99); HDL Cholesterol 36 mg/dL; LDL Cholesterol Calculated 199 mg/dl; Potassium 4.2 mmol/L (3.3-5.1); Sodium 136 mmol/L (135-145); Total Protein 7.8 g/dL (6.5-8.0); Triglycerides 100 mg/dL
[2021-02-05 14:15] LABS: TSH reflex Free T4 0.72 uIU/mL (0.32-4.0)
[2021-02-05 14:16] LABS: Creatinine Urine 107.57 mg/dL; Microalbum/Creatinine Ratio Ur 168.2 ug/mg cr
== END 2021-02-05 10:23 | disposition home or self-care (01) ==
LOC: HO.WFDLDS 10:22
PROVIDERS: Visit Provider Family Medicine
DX: Z00.00 Encounter for general adult medical examination without abnormal findings (principal); D62 Acute posthemorrhagic anemia; E11.9 Type 2 diabetes mellitus without complications; I10 Essential (primary) hypertension
CPT/HCPCS: 36415; 80053; 80061; 82043; 84443; 85025

== ENCOUNTER → 2021-02-21 08:55 | Outpatient (BNVA) | payer MEDICARE, OTHER, SELFPAY | PROVIDERS: PCP Family Medicine; Visit Provider Urology | DX: N40.1 Benign prostatic hyperplasia with lower urinary tract symptoms (principal); N13.8 Other obstructive and reflux uropathy; R33.8 Other retention of urine | CPT/HCPCS: 51701; 51798; 52000; 99212 ==

== ENCOUNTER → 2021-03-28 10:34 | Outpatient (BNVA) | payer MEDICARE, OTHER, SELFPAY | PROVIDERS: PCP Family Medicine; Visit Provider Urology | DX: N40.1 Benign prostatic hyperplasia with lower urinary tract symptoms (principal); N13.8 Other obstructive and reflux uropathy; R33.8 Other retention of urine | CPT/HCPCS: 51700; 51701; 51798; 99212 ==

== ENCOUNTER → 2021-04-25 10:44 | Outpatient (BNVA) | payer MEDICARE, OTHER, SELFPAY | PROVIDERS: PCP Family Medicine; Visit Provider Urology | DX: N40.1 Benign prostatic hyperplasia with lower urinary tract symptoms (principal); N13.8 Other obstructive and reflux uropathy; R33.8 Other retention of urine | CPT/HCPCS: 51700; 51701; 99212 ==

== ENCOUNTER → 2021-05-23 08:43 | Outpatient (BNVA) | payer MEDICARE, OTHER, SELFPAY | PROVIDERS: PCP Family Medicine; Visit Provider Urology | DX: N40.1 Benign prostatic hyperplasia with lower urinary tract symptoms (principal); N13.8 Other obstructive and reflux uropathy; R33.8 Other retention of urine | CPT/HCPCS: 51700; 51701; 99212 ==

== ENCOUNTER 2021-06-20 09:34 | Outpatient (REF) | payer MEDICARE, OTHER, SELFPAY ==
[2021-06-20 10:35] LABS: MANUAL DIFF FLAG NO
[2021-06-20 10:40] LABS: Basophils Absolute Auto 0.1 X10*3/uL (0.0-0.2); Basophils Percent Auto 0.5 % (0-2); Eosinophils Absolute Auto 0.2 X10*3/uL (0.0-0.4); Eosinophils Percent Auto 2.3 % (0-4); Hematocrit 45.4 % (42.0-52.0); Hemoglobin 15.4 g/dl (14.0-18.0); Imm Gran Abs Auto 0.07 X10*3/uL (0.00-0.03); Imm Gran Pct Auto 0.7 % (0.0-0.4); Lymphocytes Absolute Auto 2.1 X10*3/uL (1.2-4.9); Lymphocytes Percent Auto 20.7 % (20-40); Mean Corpuscular HGB Conc 33.9 g/dl (31.0-36.0); Mean Corpuscular Hemoglobin 28.4 pg (27.0-33.0); Mean Corpuscular Volume 83.8 fL (80.0-98.0); Monocytes Absolute Auto 0.8 X10*3/uL (0.1-1.2); Monocytes Percent Auto 8.1 % (2-11); Neutrophils Percent Auto 67.7 % (45-73); Platelet Count 345 X10*3/uL (160-400); Red Blood Count 5.42 X10*6/uL (4.60-5.80); Red Cell Distribution Width 15.4 % (11.0-16.0); White Blood Count 10.4 X10*3/uL (4.8-10.8)
[2021-06-20 10:57] LABS: Alanine Aminotransferase 17 U/L (0-40); Albumin Level 4.5 g/dL (3.5-5.0); Alkaline Phosphatase 81 U/L (39-117); Anion Gap 11 (12-20); Aspartate Amino Transferase 16 U/L (5-37); Bilirubin Total 0.6 mg/dL (0.0-1.0); Blood Urea Nitrogen 14 mg/dL (9-16); Calcium 10.1 mg/dL (8.4-10.2); Carbon Dioxide 28 mmol/L (22-29); Chloride 101 mmol/L (96-108); Cholesterol 249 mg/dL; Estimated Glomerular Filt Rate > 60; Glucose Fasting 120 mg/dL (60-99); HDL Cholesterol 39 mg/dL; LDL Cholesterol Calculated 190 mg/dl; Sodium 136 mmol/L (135-145); Total Protein 8.2 g/dL (6.5-8.0); Triglycerides 101 mg/dL
[2021-06-20 11:17] LABS: Prostate Specific Antigen Scr 1.63 ng/mL (<0.05-4.0); TSH reflex Free T4 0.86 uIU/mL (0.32-4.0)
[2021-06-20 14:05] LABS: Estimated Average Glucose 126 mg/dL
== END 2021-06-20 09:35 | disposition home or self-care (01) ==
LOC: HO.WFDLDS 09:34
PROVIDERS: Visit Provider Family Medicine
DX: Z00.00 Encounter for general adult medical examination without abnormal findings (principal); Z12.5 Encounter for screening for malignant neoplasm of prostate; R73.01 Impaired fasting glucose; R33.8 Other retention of urine
CPT/HCPCS: 36415; 80053; 80061; 83036; 84153; 84443; 85025; 99211

== ENCOUNTER → 2021-10-14 09:03 | Outpatient (BNVA) | payer MEDICARE, OTHER, SELFPAY | PROVIDERS: PCP Family Medicine; Visit Provider Urology | DX: N40.1 Benign prostatic hyperplasia with lower urinary tract symptoms (principal); N13.8 Other obstructive and reflux uropathy; N31.9 Neuromuscular dysfunction of bladder, unspecified | CPT/HCPCS: 51798; 99212 ==

== ENCOUNTER 2021-10-17 07:17 | Outpatient (REF) | payer MEDICARE, OTHER, SELFPAY ==
[2021-10-17 12:09] LABS: Alanine Aminotransferase 18 U/L (0-40); Albumin Level 4.1 g/dL (3.5-5.0); Alkaline Phosphatase 81 U/L (39-117); Anion Gap 12 (12-20); Aspartate Amino Transferase 14 U/L (5-37); Bilirubin Total 0.8 mg/dL (0.0-1.0); Blood Urea Nitrogen 17 mg/dL (9-16); Calcium 9.5 mg/dL (8.4-10.2); Carbon Dioxide 27 mmol/L (22-29); Chloride 102 mmol/L (96-108); Cholesterol 220 mg/dL; Estimated Glomerular Filt Rate > 60; Glucose Fasting 145 mg/dL (60-99); HDL Cholesterol 36 mg/dL; LDL Cholesterol Calculated 166 mg/dl; Potassium 4.4 mmol/L (3.3-5.1); Sodium 137 mmol/L (135-145); Total Protein 7.7 g/dL (6.5-8.0); Triglycerides 93 mg/dL
[2021-10-17 12:16] LABS: Estimated Average Glucose 131 mg/dL; Hemoglobin A1c % 6.2 %
== END 2021-10-17 07:18 | disposition home or self-care (01) ==
LOC: HO.WFDLDS 07:17
PROVIDERS: Visit Provider Family Medicine
DX: Z00.00 Encounter for general adult medical examination without abnormal findings (principal); E78.00 Pure hypercholesterolemia, unspecified; R73.01 Impaired fasting glucose
CPT/HCPCS: 36415; 80053; 80061; 83036

== ENCOUNTER 2022-03-02 07:13 | Outpatient (REF) | payer MEDICARE, OTHER, SELFPAY ==
[2022-03-02 12:05] LABS: Cholesterol 189 mg/dL; HDL Cholesterol 41 mg/dL; LDL Cholesterol Calculated 135 mg/dl; Triglycerides 69 mg/dL
== END 2022-03-02 07:14 | disposition home or self-care (01) ==
LOC: HO.WFDLDS 07:13
PROVIDERS: Visit Provider Family Medicine
DX: Z00.00 Encounter for general adult medical examination without abnormal findings (principal)
CPT/HCPCS: 36415; 80061

== ENCOUNTER → 2022-05-07 12:49 | Outpatient (BNVA) | payer MEDICARE, OTHER, SELFPAY | PROVIDERS: PCP Family Medicine; Visit Provider Urology | DX: N31.9 Neuromuscular dysfunction of bladder, unspecified (principal) | CPT/HCPCS: 99212 ==

== ENCOUNTER 2022-05-14 07:21 | Outpatient (REF) | payer MEDICARE, OTHER, SELFPAY ==
[2022-05-14 11:40] LABS: Alanine Aminotransferase 11 U/L (0-40); Albumin Level 4.4 g/dL (3.5-5.0); Alkaline Phosphatase 77 U/L (39-117); Anion Gap 17 (12-20); Aspartate Amino Transferase 13 U/L (5-37); Bilirubin Total 0.6 mg/dL (0.0-1.0); Blood Urea Nitrogen 17 mg/dL (9-16); Carbon Dioxide 26 mmol/L (22-29); Chloride 98 mmol/L (96-108); Cholesterol 252 mg/dL; Estimated Glomerular Filt Rate > 60; Glucose Random 131 mg/dL (60-115); HDL Cholesterol 43 mg/dL; LDL Cholesterol Calculated 189 mg/dl; Potassium 4.3 mmol/L (3.3-5.1); Sodium 137 mmol/L (135-145); Total Protein 8.4 g/dL (6.5-8.0); Triglycerides 101 mg/dL
[2022-05-14 11:43] LABS: Estimated Average Glucose 120 mg/dL; Hemoglobin A1c % 5.8 %
== END 2022-05-14 07:22 | disposition home or self-care (01) ==
LOC: HO.WFDLDS 07:21
PROVIDERS: Visit Provider Family Medicine
DX: Z00.00 Encounter for general adult medical examination without abnormal findings (principal); E11.9 Type 2 diabetes mellitus without complications; E78.00 Pure hypercholesterolemia, unspecified
CPT/HCPCS: 36415; 80053; 80061; 83036

== ENCOUNTER 2022-10-14 07:24 | Outpatient (REF) | payer MEDICARE, OTHER, SELFPAY ==
[2022-10-14 11:51] LABS: Alanine Aminotransferase 10 U/L (0-40); Albumin Level 4.1 g/dL (3.5-5.0); Alkaline Phosphatase 57 U/L (39-117); Anion Gap 11 (12-20); Aspartate Amino Transferase 13 U/L (5-37); Bilirubin Total 0.7 mg/dL (0.0-1.0); Blood Urea Nitrogen 18 mg/dL (9-16); Calcium 9.5 mg/dL (8.4-10.2); Carbon Dioxide 28 mmol/L (22-29); Chloride 104 mmol/L (96-108); Cholesterol 197 mg/dL; Estimated Glomerular Filt Rate > 60; Glucose Fasting 113 mg/dL (60-99); HDL Cholesterol 40 mg/dL; LDL Cholesterol Calculated 144 mg/dl; Potassium 4.4 mmol/L (3.3-5.1); Sodium 139 mmol/L (135-145); Total Protein 7.1 g/dL (6.5-8.0); Triglycerides 66 mg/dL
[2022-10-14 12:08] LABS: Prostate Specific Antigen Scr 1.59 ng/mL (<0.05-4.0); TSH reflex Free T4 1.04 uIU/mL (0.32-4.0)
[2022-10-14 12:13] LABS: Prostate Specific Antigen 1.62 ng/mL (<0.05-4.0)
[2022-10-14 14:13] LABS: Appearance Urine Cloudy; Color Urine Yellow; Glucose Urine UA Negative (Negative); Leukocyte Esterase Urine Large (3+) (Negative); Nitrite Urine Positive (Negative); PH 5.5 (5.0-9.0); UMIC TRIGGER UA YES; Urine Blood Small (1+) (Negative); Urine Ketones Negative (Negative); Urine Protein Negative (Neg-Trace)
[2022-10-14 14:28] LABS: Bacteria Urine 4+ (None Seen); Hyaline Casts Urine 0-2 /LPF (0-2); Squamous Epithelial Cell Urine 0-2 /HPF (0-2); WBC Urine >50 /HPF (0-5)
[2022-10-14 15:01] LABS: Creatinine Urine 124.34 mg/dL; Microalbum/Creatinine Ratio Ur 19.3 ug/mg cr
== END 2022-10-14 07:25 | disposition home or self-care (01) ==
LOC: HO.WFDLDS 07:24
PROVIDERS: Family Medicine; Visit Provider Urology
DX: Z00.00 Encounter for general adult medical examination without abnormal findings (principal); Z12.5 Encounter for screening for malignant neoplasm of prostate; N13.8 Other obstructive and reflux uropathy; N40.1 Benign prostatic hyperplasia with lower urinary tract symptoms; I10 Essential (primary) hypertension
CPT/HCPCS: 36415; 80053; 80061; 81001; 82043; 84153; 84443

== ENCOUNTER → 2022-11-05 09:11 | Outpatient (BNVA) | payer MEDICARE, OTHER, SELFPAY | PROVIDERS: PCP Family Medicine; Visit Provider Urology | DX: N31.9 Neuromuscular dysfunction of bladder, unspecified (principal) | CPT/HCPCS: Q3014 ==

== ENCOUNTER 2022-11-09 15:54 | Outpatient (REF) | payer MEDICARE, OTHER, SELFPAY ==
--- NOTE | ~2022-11-09 | US_ITS ---
EXAMINATION: US SOFT TISSUE NECK CLINICAL INFORMATION: Localized swelling, mass and multiple COMPARISON: None available. TECHNIQUE: Ultrasound of the neck soft tissues is performed with high- frequency gonsalez-scale imaging and color Doppler. FINDINGS: In the area of palpable concern in the left neck is a rounded 2.1 x 1.6 x 3.0 cm suspicious level 3 cervical node with loss of normal fatty julianna. Few additional adjacent nodes measuring up to 2.3 x 0.8 x 1.6 cm, the largest borderline enlarged with a persistent fatty hilum. US/US soft tiss head and/or neck IMPRESSION: 1. In the area of palpable concern is a rounded 1.6 m short axis left level 3 cervical node with loss of fatty julianna, morphologically suspicious and pathologically enlarged. Recommend contrast-enhanced CT neck for further evaluation to assess for any possible etiology and correlation with tissue sampling could be considered. Few additional adjacent nodes, measuring borderline enlarged indeterminate. The findings and recommendations were discussed with Wayne Galdamez MD by telephone at 11/12/2022 4:15 PM and it was ascertained that the content and urgency of the report was understood at the time of direct communication.
== END 2022-11-09 15:55 | disposition home or self-care (01) ==
LOC: HO.US 15:54
PROVIDERS: PCP Family Medicine; Visit Provider Family Medicine
DX: R22.1 Localized swelling, mass and lump, neck (principal)
CPT/HCPCS: 76536

== ENCOUNTER 2022-12-08 08:49 | Outpatient (REF) | payer MEDICARE, OTHER, SELFPAY ==
--- NOTE | ~2022-12-08 | CT_ITS ---
EXAMINATION: CT SOFT TISSUE NECK WITH CONTRAST CLINICAL INFORMATION: 67-year-old with localized swelling, mass and lump in neck. Neck mass with concerning features on previous ultrasound. COMPARISON: 11/09/2022 soft tissue ultrasound. TECHNIQUE: Following the intravenous administration of 60 mL of Omnipaque 350 intravenous contrast, helical imaging was performed in the axial plane with generation of coronal and sagittal reformatted images. This CT examination was performed using dose optimization techniques as appropriate, variously including the following: *Automated exposure control *Adjustment of mA and/or kV according to patient size (this includes techniques or standardized protocols for targeted exams where dose is matched to indication/reason for exam; i.e. extremities or head) *Use of iterative reconstruction technique DLP: 351 mGy-cm FINDINGS: Skull Base: The visualized calvarium and bony skull base are intact. The mastoids and middle ear cavities are unopacified. On the included portion of the brain, there is a 7 mm rounded faintly enhancing focus in the left temporal lobe. Uncertain whether this is a true focus of pathologic enhancement. Recommend MRI of the brain without and with contrast to further assess this. Otherwise, no acute process identified. The visualized intraorbital soft tissue structures appear grossly unremarkable within the limitations of the exam. Suprahyoid Neck: Nasopharynx, retropharynx, end frazer, and parapharyngeal spaces appear within normal limits. The oropharynx is asymmetric and appears deformed on the right which appears to be related to tortuosity of the right internal carotid artery which deviates medially, bulging the right side of the oropharynx and partially obscuring visualization of the right palatine tonsil. Correlate with direct visualization. Otherwise, no definite mass lesions or abnormal enhancement are seen. The oral cavity and oropharynx are partially obscured by dental amalgam artifact. The major salivary glands appear grossly within normal limits. The base of the tongue and floor of the mouth structures appear grossly intact. Moderately prominent lingual tonsils with a tonsillolith on the left protruding into the vallecula. Normal appearance to the epiglottis. Small, nonenlarged bilateral submandibular space and level 2A lymph nodes in the IJ chains bilaterally. There is a pathologically enlarged level 2B lymph node on the left, measuring 1.6 x 0.8 cm containing a small cystic or necrotic focus. Just inferior to this, there is a pathologically enlarged level 2B lymph node which corresponds to the lesion noted on the ultrasound, measuring 2.0 x 2.1 cm in transaxial dimensions x 3.3 cm maximum craniocaudal dimension. This spans levels 2B and 3B. Infrahyoid Neck: The hypopharynx and larynx appear within normal limits. The thyroid gland is not enlarged. No discrete thyroid nodules are seen. No other infrahyoid lymphadenopathy is identified. Vascular: Minimal partially calcified atheromatous plaque at the left carotid bulb and mild soft plaque at the right carotid bulb with less than 50% diameter reduction stenosis by NASCET criteria. Vertebral arteries opacify bilaterally, and there is opacification of the jugular veins bilaterally. Upper Chest: There is a partially imaged ground-glass opacity in the right upper lobe measuring 3.6 cm on image 136 of series 5. There are multiple mediastinal lymph nodes, which are all less than 1 cm in greatest short axis. There is a right pleural effusion versus pleural thickening. Recommend CT of the chest with contrast for further assessment. Skeletal: Cervical DDD and spondylosis noted, most apparent at C5-C6 and C6-C7. No focally aggressive osseous lesions are identified. Mild cervicothoracic scoliotic curvature. Other Comments: None. CT/CT soft tissue neck w IV con IMPRESSION: 1. Pathologically enlarged level 2B lymph nodes on the left, as described above, with a small cystic or necrotic focus in the smaller left level 2B lymph node. Findings are consistent with metastatic lymphadenopathy. No definite primary lesion is visualized in the neck. Recommend tissue sampling. 2. A 7 mm rounded enhancing focus in the left temporal lobe. Cannot exclude a true focus of pathologic enhancement. MRI of the brain without and with contrast recommended. 3. A 3.6 cm ground-glass opacity in the right upper lobe and multiple mediastinal lymph nodes with a right pleural effusion versus pleural thickening. Recommend CT of the chest with contrast for further assessment. Neoplastic disease cannot be excluded. 4. Asymmetric appearance to the oropharynx on the right which appears to be related to tortuosity of the right internal carotid artery which deviates medially and partially obscures the right palatine tonsil. Correlate with direct visualization. 5. Cervical degenerative changes, as discussed above. The [facility] staff will call to confirm receipt of this report with acknowledgement of the findings and any recommendations.
[2022-12-08] MEDS: iohexoL 350 MG/ML 100 ML INFUS..BTL IV (10:28)
[2022-12-08 14:10] LABS: Creatinine POC 0.6 mg/dL (0.5-1.4); GFR POC 60
== END 2022-12-08 08:50 | disposition home or self-care (01) ==
LOC: HO.CT 08:49
PROVIDERS: PCP Family Medicine; Visit Provider Family Medicine
DX: R22.1 Localized swelling, mass and lump, neck (principal)
CPT/HCPCS: 70491; 82565; Q9967

== ENCOUNTER 2022-12-16 11:26 | Outpatient (REF) | payer MEDICARE, OTHER, SELFPAY ==
[2022-12-16 13:55] LABS: MANUAL DIFF FLAG NO
[2022-12-16 14:10] LABS: Basophils Percent Auto 0.4 % (0-2); Eosinophils Absolute Auto 0.2 X10*3/uL (0.0-0.4); Hematocrit 45.5 % (42.0-52.0); Imm Gran Abs Auto 0.05 X10*3/uL (0.00-0.03); Imm Gran Pct Auto 0.5 % (0.0-0.4); Lymphocytes Absolute Auto 1.7 X10*3/uL (1.2-4.9); Mean Corpuscular Hemoglobin 28.8 pg (27.0-33.0); Mean Corpuscular Volume 87.3 fL (80.0-98.0); Monocytes Absolute Auto 0.9 X10*3/uL (0.1-1.2); Monocytes Percent Auto 10.2 % (2-11); Neutrophils Absolute Auto 6.2 x10*3/uL (2.0-8.3); Neutrophils Percent Auto 67.9 % (45-73); Platelet Count 359 X10*3/uL (160-400); Red Blood Count 5.21 X10*6/uL (4.60-5.80); Red Cell Distribution Width 14.6 % (11.0-16.0); White Blood Count 9.1 X10*3/uL (4.8-10.8)
[2022-12-16 14:22] LABS: Alanine Aminotransferase 22 U/L (0-40); Albumin Level 4.3 g/dL (3.5-5.0); Alkaline Phosphatase 65 U/L (39-117); Anion Gap 9 (12-20); Aspartate Amino Transferase 19 U/L (5-37); Bilirubin Total 0.5 mg/dL (0.0-1.0); Blood Urea Nitrogen 13 mg/dL (9-16); Calcium 9.7 mg/dL (8.4-10.2); Carbon Dioxide 29 mmol/L (22-29); Chloride 105 mmol/L (96-108); Estimated Glomerular Filt Rate > 60; Glucose Random 89 mg/dL (60-115); Potassium 4.4 mmol/L (3.3-5.1); Sodium 139 mmol/L (135-145); Total Protein 7.8 g/dL (6.5-8.0)
== END 2022-12-16 11:27 | disposition home or self-care (01) ==
LOC: HO.WFDLDS 11:26
PROVIDERS: Visit Provider Family Medicine
DX: Z00.00 Encounter for general adult medical examination without abnormal findings (principal); R22.1 Localized swelling, mass and lump, neck
CPT/HCPCS: 36415; 80053; 85025

== ENCOUNTER → 2022-12-21 11:11 | Outpatient (BNV) | payer MEDICARE, OTHER, SELFPAY | PROVIDERS: PCP Family Medicine; Visit Provider Internal Medicine | DX: C34.31 Malignant neoplasm of lower lobe, right bronchus or lung (principal); C79.31 Secondary malignant neoplasm of brain | CPT/HCPCS: 99205; 99212; 99214; 99215 ==

== ENCOUNTER 2022-12-28 15:17 | Outpatient (REF) | payer MEDICARE, OTHER, SELFPAY ==
--- NOTE | ~2022-12-28 | US_ITS ---
EXAMINATION: US BIOPSY LYMPH NODE CLINICAL INFORMATION: Left cervical lymphadenopathy. COMPARISON: Previous neck CT November 2022 and soft tissue ultrasound November 2022. TECHNIQUE: Procedure and risks and benefits including bleeding and infection were discussed with the patient and informed consent was obtained. The left neck was prepped and draped in the usual sterile fashion. The skin and soft tissues were anesthetized with 1% lidocaine plain. Using a coaxial system, access to an enlarged left level 3 lymph node was obtained. Seven 18-guage core biopsies were obtained. Specimens were placed in formalin and flow cytometry solution. FINDINGS: There is an enlarged left cervical level 3 lymph node measuring 3 x 1.7 x 2 cm that was targeted for ultrasound-guided biopsy. This demonstrates abnormal ultrasound morphology and flow. US/US biopsy lymph node IMPRESSION: Ultrasound-guided left cervical lymph node biopsy.
[2022-12-28] MEDS: Lidocaine HCl 1 % MPF 5 ML VIAL SUBCUT (16:49)
== END 2022-12-28 15:18 | disposition home or self-care (01) ==
LOC: HO.US 15:17
PROVIDERS: Radiology Diagnostic Radiology; PCP Family Medicine; Visit Provider Internal Medicine
DX: R22.1 Localized swelling, mass and lump, neck (principal)
CPT/HCPCS: 36415; 38505; 76942; 88184; 88185; 88300; 88305; 88341; 88342

== ENCOUNTER 2022-12-29 11:01 | Outpatient (REF) | payer MEDICARE, OTHER, SELFPAY ==
--- NOTE | ~2022-12-29 | MR_ITS ---
EXAMINATION: MR BRAIN WITHOUT AND WITH CONTRAST CLINICAL INFORMATION: Swelling. Mass and lump in neck. Mass seen in the temporal lobe. COMPARISON: CT neck 12/08/2022. TECHNIQUE: Multiplanar MR imaging of the brain was performed without and with contrast. A total of 8 mL Gadavist was utilized for this examination. FINDINGS: There is a heterogeneously enhancing mass involving the right precentral gyrus near the hand motor association area best visualized on axial image 2127 series 9 with a small adjoining cystic component measuring approximately 1.4 cm in diameter and there is a small margin of associated perilesional vasogenic edema. In addition to this finding there is a lesion located within the subcortical white matter of the left posterior temporal lobe that coincides with the hyperdensity demonstrated on prior imaging measuring approximately 1 cm in diameter. It demonstrates intrinsic T1 signal hyperintensity and there is heterogeneous enhancement associated with this lesion on postcontrast imaging. There is no substantial intracranial mass effect. No abnormal extra-axial collection. Lateral and third ventricles are normal. No hydrocephalus. Midline structures including the cervicomedullary junction are normal. No acute bone marrow signal changes. There are numerous foci of T2 FLAIR signal hyperintensity within the periventricular white matter and adali. No acute territorial infarct. A few punctate foci of susceptibility artifact are visualized within both basal ganglia. Intracranial vascular flow voids are maintained. No mastoid or middle ear effusion. There are a few small retention cysts within both maxillary sinuses. Otherwise no active paranasal sinus disease. Globes and orbits are symmetric. MR/MR head/brain wo/w con IMPRESSION: There are heterogeneously enhancing lesions involving the right precentral gyrus and left posterior temporal lobe that are worrisome for intracranial metastatic disease. No substantial intracranial mass effect. No midline shift or hydrocephalus. There are numerous chronic small vessel ischemic changes within the periventricular white matter and adali. No acute territorial infarct.
== END 2022-12-29 11:02 | disposition home or self-care (01) ==
LOC: HO.MRI 11:01
PROVIDERS: PCP Family Medicine; Visit Provider Family Medicine
DX: R22.1 Localized swelling, mass and lump, neck (principal)
CPT/HCPCS: 70553

== ENCOUNTER 2023-01-14 16:26 | Outpatient (REF) | payer MEDICARE, OTHER, SELFPAY ==
--- NOTE | ~2023-01-14 | CT_ITS ---
EXAMINATION: CT CHEST WITH CONTRAST CLINICAL INFORMATION: Possible lung cancer COMPARISON: Images of the lung apices on the 12/08/2022 CT scan of the neck TECHNIQUE: Multidetector volumetric CT imaging of the chest was obtained after the administration of 65 mL of Omnipaque 350 intravenous contrast without immediate adverse reactions. Axial MIP volume rendering provided. Sagittal and coronal reformatted images were obtained. This CT examination was performed using dose optimization techniques as appropriate, variously including the following: *Automated exposure control *Adjustment of mA and/or kV according to patient size (this includes techniques or standardized protocols for targeted exams where dose is matched to indication/reason for exam; i.e. extremities or head) *Use of iterative reconstruction technique DLP: 121 mGy-cm FINDINGS: LUNGS: There is a large ill-defined mass lesion centrally in the right lung base involving mostly the right lower lobe was also stenting into the right middle lobe posteriorly with adjacent consolidation and air bronchograms. This demonstrates heterogeneous attenuation with irregular dilated bronchiectatic airways seen dependently. Overall the area measures up to 15.0 x 11.8 cm in size. Additionally there are innumerable satellite nodules seen throughout the right lower lobe and right middle lobe. There are additional subcentimeter pulmonary nodules seen in the right upper lobe as well as a 6 mm pulmonary nodule in the left lingula. The trachea and central bronchi appear grossly unremarkable although there is truncation of the right lower lobe bronchus and the posterior right middle lobe bronchus. The right basilar airspace disease closely abuts the right infrahilar region. Incidental subcapsular granuloma on the lateral aspect of the left lower lobe MEDIASTINUM: There is a 1.7 cm subcarinal lymph node able to be delineated and shotty mediastinal lymph nodes otherwise. Vascular calcification within the aorta and coronary vessels PLEURA: Despite the significant disease on the right do not appreciate any discrete layering right-sided effusion or obvious pleural thickening. AXILLA: No lymphadenopathy. UPPER ABDOMEN: Diffuse fatty infiltration of the liver. Gallstones in the dependent portion of the contracted gallbladder OSSEOUS STRUCTURES: Unremarkable. CT/CT chest w IV con IMPRESSION: There is a large ill-defined mass lesion in the right lower lobe extending into the right middle lobe with adjacent consolidation and air bronchograms. There are innumerable satellite nodules seen throughout the right lower lobe and right middle lobe. There are additional subcentimeter pulmonary nodules seen in the right upper lobe as well as a 6 mm pulmonary nodule in the left lingula. There is a subcarinal lymph node measuring 1.7 cm in short axis dimension. Overall the constellation of findings is very concerning for right basilar lung malignancy. Tissue diagnosis could be obtained to delineated further.
== END 2023-01-14 16:27 | disposition home or self-care (01) ==
LOC: HO.CT 16:26
PROVIDERS: PCP Family Medicine; Visit Provider Internal Medicine
DX: R91.8 Other nonspecific abnormal finding of lung field (principal)
CPT/HCPCS: 71260; Q9967

== ENCOUNTER 2023-03-24 16:39 | Outpatient (REF) | payer MEDICARE, OTHER, SELFPAY ==
--- NOTE | ~2023-03-24 | MR_ITS ---
EXAMINATION: MR BRAIN WITH AND WITHOUT CONTRAST CLINICAL INFORMATION: Follow-up brain metastases COMPARISON: MRI brain TECHNIQUE: MRI of the brain was obtained using routine sequences before and following administration of intravenous contrast. A total of 7.5 mL of Gadavist was administered intravenously. FINDINGS: Decreased size of a 4 mm peripherally enhancing lesion with new susceptibility artifact associated with lesion in the right precentral gyrus, previously 1.4 cm, with decreased marginal vasogenic edema and resolved previously seen regional mass effect. Slightly increased size of enhancing T1 hyperintense lesion within the left temporal lobe measuring 1.3 cm, previously 1.0 cm with increased associated susceptibility artifact and increased surrounding T2 FLAIR hyperintensity. No other new pathologic intracranial enhancement is seen. Stable additional nonspecific foci of hemosiderin staining throughout the supratentorial and infratentorial compartments. Stable mild global cerebral volume loss. Stable nonspecific moderate burden of patchy T2 FLAIR hyperintensity throughout the subcortical and periventricular white matter, deep gonsalez nuclei, and brainstem.No acute infarct or extra-axial fluid collection. No herniation pattern. The intracranial dural venous sinus and arterial flow voids are preserved. Normal appearance of the midline structures. The orbits are grossly unremarkable. Paranasal sinus mucosal thickening with proteinaceous retention cysts in the bilateral maxillary sinuses. Normal marrow signal. MR/MR head/brain wo/w con IMPRESSION: Two metastases within the right precentral gyrus and left temporal lobe, the former which has decreased in size with decreased associated vasogenic edema compatible with favorable treatment response and the latter demonstrating slightly increased size and surrounding T2 FLAIR hyperintensity. No other new pathologic intracranial enhancement.
[2023-03-24] MEDS: gadobutroL 7.5 ML VIAL IVPUSH (17:25)
== END 2023-03-24 16:40 | disposition home or self-care (01) ==
LOC: HO.MRI 16:39
PROVIDERS: PCP Family Medicine; Visit Provider Internal Medicine Medical Oncology
DX: C34.91 Malignant neoplasm of unspecified part of right bronchus or lung (principal)
CPT/HCPCS: 70553; A9585

== ENCOUNTER 2023-04-21 08:28 | Outpatient (AMB) | payer MEDICARE, OTHER, SELFPAY ==
[2023-04-21 08:43] VITALS: BP 132/64; PULSE 93; RESP 13; TEMP 37.1; O2SAT 98; BMI 28.5
--- NOTE | 2023-04-21 08:43 | MHC.PC.OV ---
Vital Signs 04/21/23 08:43 Height 5 ft 7 in Weight 182 lb 4 oz BMI 28.5 BP 132/64 Blood Pressure Location Lt brachial Position Sitting Respiration 13 Pulse 93 Pulse Source Pulse Oximeter Temp 98.8 F Temp Source Oral Pulse Oximetry (%) 98 Oxygen Delivery Method Room Air Intake Visit Reasons: f/u hypercholesterolemia Intake Note: Patient reports he has no concerns at this time. Gear Inspector Required: No Accompanied by: Self / Same As Patient Allergies pollen extracts Allergy (Verified 04/21/23 08:44) sneezing Tobacco use date assessed: 12/17/22 Dental Screening Dental Screen Date: 04/21/23 Did you have a dental visit in the last 12 months?: Yes Did you have a dental problem in the last 6 months where you did not have access to dental care?: No Was dental information given to patient?: Patient has dentist HPI f/u hypercholesterolemia HPI Details 67 y/o male presents to f/u hypercholesterolemia, diabetes and chronic conditions. No recent lipid panel to review. Follows up with Heme Onc Dr. Bourne for metastatic non-small cell lung cancer diagnosed in December 2022, R lower lobe primary. Had presented with L neck adenopathy, core biopsy of L cervical node performed 12/28/22 showed poorly differentiated squamous cell carcinoma. A1c today 04/21/23 is 7.2%. [facility] Medical History Patient denies medical problems Surgical History History of tonsillectomy History of tonsillectomy Family History Brother Diabetes mellitus Father Lung cancer Mother Stroke Social History Household Members: Spouse Housing: House Do you presently have visiting nurse or other home services: No Alcohol intake: never Patient Tobacco Use Status: Former Tobacco user Tobacco use type: Cigarette Years Smoked: quit smoking 6 months ago e-Cigarette/Vaping Use: Former Use Second Hand Smoke Exposure: No service: No Current occupational status: retired Current occupational exposures/hazards: No Cognitive needs: No Hearing needs: No Vision needs: Yes (Glasses) Questionnaire Thrive Questionnaire Date Thrive assessed: 02/05/21 WILLY-7 AMB Questionnaire WILLY-7 Date WILLY - 7 assessed: 03/19/22 Source: Developed by Drs. Moreno Tello, Rachelle Seals, Juan Harrison and colleagues, with an educational kelley from [employer]. Review of Systems Const Denies chills, Denies fatigue, Denies fever(s), Denies headache(s) and Denies weakness ENT Denies dizziness and Denies headache(s) Card Denies chest pain, Denies lightheadedness, Denies dyspnea and Denies other (Palpitations) Resp Denies cough, Denies dyspnea, Denies wheezing and Denies other ( shortness of breath) Musc Denies numbness and Denies tingling Neuro Denies dizziness, Denies headache(s), Denies numbness, Denies tingling, Denies paresthesias and Denies weakness Psych Denies anxiety and Denies depression Endo Denies fatigue Aller/Immun Denies wheezing Physical exam (Primary Care) Vital Signs: Last Vital Signs Temp 98.8 F 04/21/23 08:43 Pulse 93 04/21/23 08:43 Resp 13 04/21/23 08:43 BP 132/64 04/21/23 08:43 Pulse Ox 98 04/21/23 08:43 Oxygen Delivery Method Room Air 04/21/23 08:43 BMI result Body Mass Index 28.5 Tobacco/Smoking Status: Tobacco use Status Tobacco use date assessed 12/17/22 04/21/23 08:45 Patient Tobacco Use Status Former Tobacco user 04/21/23 08:45 Tobacco use type Cigarette 04/21/23 08:45 e-Cigarette/Vaping Use Former Use 04/21/23 08:45 Thrive Assessment: Date of Thrive Assessment Date Thrive assessed 02/05/21 04/21/23 08:45 Const General: no acute distress and well developed Nutritional Appearance: well nourished Orientation/consciousness: patient oriented x3 HENMT Head: Yes normocephalic and Yes atraumatic Eyes General: appearance normal, both eyes and all related structures Pupils: Equal, round and reactive pupils present EOM: EOMs intact bilaterally Resp Effort & Inspection: normal respiratory effort Auscultation: clear to auscultation bilaterally Cardio Rate: regular rate Rhythm: regular rhythm Heart sounds: S1 normal heart sound present, S2 normal heart sound present, no gallops, no murmurs and no rubs Neuro General: patient oriented x3 and gait normal Cranial nerves: Yes Equal, round and reactive pupils present Psych Affect: normal affect Results AMB Hemoglobin A1c AMB Hemoglobin A1c 7.2 % Last Edit by Jackie Jaquez CMA on 04/21/23 09:15 Results Reviewed Results Reviewed: Laboratory Last Values Hgb A1c (Clinic) 7.2 % (4.0-6.0) H 04/21/23 09:10 Assessment and Plan Assessment & Plan (1) Non-small cell cancer of right lung: Code(s): C34.91 - Malignant neoplasm of unspecified part of right bronchus or lung Plan: Responding?well?to?chemotherapy. Has?an?upcoming?scan?for?further?evaluation Follow-up?with?Hematology-Oncology?as?recommended (2) Hypercholesterolemia: Code(s): E78.00 - Pure hypercholesterolemia, unspecified Plan: He?is?on?Zetia Will?check?labs?and?we?can?follow-up?on?this?in?a?couple?of?weeks (3) Diabetes: Code(s): E11.9 - Type 2 diabetes mellitus without complications Qualifiers: Diabetes mellitus complication status: without complication Diabetes mellitus intermediate project manager insulin use: without chcf use Diabetes mellitus type: type 2 Qualified Code(s): E11.9 - Type 2 diabetes mellitus without complications Plan: Blood?sugars?have?elevated;?A1c?now?7.2%. Under?increased?stress?from?lung?CA?and?chemotherapy. Also?getting?dexamethasone?after?chemotherapy?treatments. Will?give?him?some?glipizide?which?he?can?take?to?improve?blood?sugars?and?will?particularly?help?when?he?has?dexamethasone. Orders: Orders Comprehensive [place]. Panel Fast Today E78.00 - Pure hypercholesterolemia, unspecified, Z00.00 - Encounter for general adult medical examination without abnormal findings Lipid Panel Today E78.00 - Pure hypercholesterolemia, unspecified, Z00.00 - Encounter for general adult medical examination without abnormal findings AMB Hemoglobin A1c Today Z13.9 - Encounter for screening, unspecified Medications: New glipizide ER 2.5 mg PO DAILY 30 tabs 2RF 30 days Coding Level of Care Code Est Pt Level 4 (22323) Diagnoses Non-small cell cancer of right lung C34.91 Hypercholesterolemia E78.00 Diabetes E11.9 Diabetes mellitus complication status: without complication Diabetes mellitus chcf insulin use: without chcf use Diabetes mellitus type: type 2
== END 2023-04-21 09:44 | disposition home or self-care (01) ==
PROVIDERS: Visit Provider Family Medicine
DX: C34.91 Malignant neoplasm of unspecified part of right bronchus or lung (principal); E78.00 Pure hypercholesterolemia, unspecified; E11.9 Type 2 diabetes mellitus without complications
CPT/HCPCS: 83036; 99214

== ENCOUNTER 2023-05-05 11:31 | Outpatient (AMB) | payer MEDICARE, OTHER, SELFPAY ==
--- NOTE | 2023-05-05 11:45 | A.OFFVIS_ITS ---
Intake Intake Visit Reasons: 6m follow up Intake Note: Patient is Present for Follow Up Urology Medication: Finasteride, Tamsulosin Antibiotic Allergies: None Blood Thinners: None Pharmacy: [facility] Allergies pollen extracts Allergy (Verified 05/05/23 11:50) sneezing HPI HPI Comments History of Present Illness Details William is a pleasant male. He is a patient of Dr. Galdamez. He is seen for the following urologic conditions - neurogenic bladder - urinary retention Recent diagnosis stage for lung cancer Receiving Keytruda with Dr. Bourne Responding well Continues with [facility] 4-5 times per day No urinary tract infections Follow in 6 months Neurogenic bladder and will require clean intermittent catheterization for the foreseeable future Urinary retention - background silent prostatism January 2021 episode at [facility] 4 L in bladder Failed initial voiding trial May come off prostate medications - finasteride and tamsulosin 03/01 cystoscopy average prostate no medi an lobe PSA 11/01 1.6 PFSH Medical History Patient denies medical problems Surgical History History of tonsillectomy History of tonsillectomy Family History Brother Diabetes mellitus Father Lung cancer Mother Stroke Social History Household Members: Spouse Housing: House Do you presently have visiting nurse or other home services: No Alcohol intake: never Patient Tobacco Use Status: Former Tobacco user Tobacco use type: Cigarette Years Smoked: quit smoking 6 months ago e-Cigarette/Vaping Use: Former Use Second Hand Smoke Exposure: No service: No Current occupational status: retired Current occupational exposures/hazards: No Cognitive needs: No Hearing needs: No Vision needs: Yes (Glasses) Review of Systems Const Denies chills and Denies fever(s) Card Reports no additional complaints and Denies syncope Resp Denies cough GI Denies abdominal pain and Denies heartburn Reports as per HPI and Denies change in libido Neuro Denies syncope Psych Denies change in libido Endo Denies change in libido Physical Exam Const General: cooperative, healthy appearing, comfortable and no acute distress Orientation/consciousness: patient oriented x3 HEENT Face and sinus: Yes normal facial exam Mouth: moist mucous membranes Neck Neck: Yes normal visual inspection, Yes full ROM and Yes trachea midline Chest Chest palpation & inspection: normal inspection of the chest Resp Effort & Inspection: normal respiratory effort, able to speak in complete sentences and no respiratory distress GI Inspection: Yes normal to inspection Back/Spine/Pelvis Cervical Spine: normal cervical lordosis Thoracic/Lumbar Spine: thoracic and lumbar spine normal to inspection Skin General skin exam: no rashes or lesions noted Neuro General: patient oriented x3, gait normal, tone normal and moves all extremities Extrem General: Yes normal to inspection and Yes capillary refill normal Assessment & Plan Assessment & Plan (1) Hypotonic neurogenic bladder: Code(s): N31.9 - Neuromuscular dysfunction of bladder, unspecified Plan Six month follow-up Patient Instructions: Imaging studies, laboratory and physical exam results were discussed and reviewed in detail. No major barriers to patient understanding were identified. An opportunity to ask questions regarding the treatment plan was provided. All questions were answered. The patient expressed understanding and agreement with the above treatment plan. The patient is aware they should contact our office by phone for worsening of their current condition or the appearance of new urologic symptoms. Compliance is encouraged with any medications and followup testing that is ordered. It is a privilege to participate in the urologic care of your patient. If you have any questions or concerns regarding treatment for the above conditions, or other urologic issues, please do not hesitate to contact me. The office telephone contact is [phone]. This note is constructed using voice recognition software. While every effort has been made to ensure accuracy cigarette making examiner errors may have been included. Yours sincerely, Dr Abdullahi Rao MD, [facility] - Urology Providers of Expert, Compassionate Care for the Genitourinary System Coding Level of Care Code Est Pt Level 3 (65594) Diagnoses Hypotonic neurogenic bladder N31.9
== END 2023-05-05 12:12 | disposition home or self-care (01) ==
PROVIDERS: Visit Provider Urology
DX: N31.9 Neuromuscular dysfunction of bladder, unspecified (principal)
CPT/HCPCS: 99213

== ENCOUNTER → 2023-05-05 11:31 | Outpatient (BNVA) | payer MEDICARE, OTHER, SELFPAY | PROVIDERS: Visit Provider Urology | DX: N31.9 Neuromuscular dysfunction of bladder, unspecified (principal) | CPT/HCPCS: 99212 ==

== ENCOUNTER 2023-06-18 12:51 | Outpatient (REF) | payer MEDICARE, OTHER, SELFPAY ==
--- NOTE | ~2023-06-18 | MR_ITS ---
EXAMINATION: MR BRAIN WITHOUT AND WITH CONTRAST CLINICAL INFORMATION: known brain mets, recent ROBISON, emesis COMPARISON: MRI of the brain with and without contrast 03/24/2023 TECHNIQUE: Multiplanar multisequence MR imaging of the brain was obtained without and following the administration of 9 mL Gadavist intravenous contrast. FINDINGS: There is evidence of progressive disease compared to MRI from 03/24/2023. Previously noted metastatic lesions involving the left temporal lobe and right precentral gyrus have increased in size measuring up to 1.5 cm (previously 1.3 cm) and 1.3 cm (previously 4 mm) in maximal axial dimensions with increased surrounding vasogenic edema. There is also a new 0.5 mm peripherally enhancing lesion involving the right frontal operculum (series 9 image 16) as well as a 1.3 cm metastasis in the posterior left parietal lobe, the latter of which demonstrates mild surrounding vasogenic edema. There is no acute infarct on diffusion-weighted imaging. Stable punctate focus of susceptibility artifact along the ependymal margin of the body of the left lateral ventricle. Stable small chronic blood products associated with the previously existing metastases. No new intracranial blood products are noted. No extra-axial collection or mass effect/herniation. Patchy periventricular, deep white matter, and brainstem T2 FLAIR hyperintensities consistent with moderate underlying microangiopathy. No hydrocephalus. The ventricles are normal in morphology and size. No abnormal extra-axial enhancement. The major flow voids at the skull base are preserved. The midline structures are normal. The cerebellar tonsils are normally positioned. The craniocervical junction is normal. Marrow signal is within normal limits. The visualized soft tissues are without significant abnormality. Mild maxillary sinus mucosal thickening. MR/MR head/brain wo/w con IMPRESSION: Progression of intracranial metastatic disease compared to MRI from 03/24/2023 with increased size of previously noted metastatic lesions in the left temporal lobe and right precentral gyrus and new lesions in the right frontal operculum and left parietal lobe. As this exam was dictated after hours, a [place] security administrator will contact the ordering provider with findings and recommendations at the start of the next business day.
[2023-06-18] MEDS: gadobutroL 10 ML VIAL IVPUSH (13:57)
== END 2023-06-18 12:52 | disposition home or self-care (01) ==
LOC: HO.MRI 12:51
PROVIDERS: PCP Family Medicine; Visit Provider Internal Medicine
DX: C34.91 Malignant neoplasm of unspecified part of right bronchus or lung (principal); C79.31 Secondary malignant neoplasm of brain
CPT/HCPCS: 70553; A9585

== ENCOUNTER 2023-07-21 09:12 | Outpatient (AMB) | payer MEDICARE, OTHER, SELFPAY ==
[2023-07-21 09:17] VITALS: BP 138/70; PULSE 81; O2SAT 98; BMI 30.1
--- NOTE | 2023-07-21 09:17 | MHC.PC.OV ---
Vital Signs 07/21/23 09:17 Height 5 ft 7 in Weight 192 lb 6 oz BMI 30.1 BP 138/70 Blood Pressure Location Lt brachial Pulse 81 Pulse Source Pulse Oximeter Pulse Oximetry (%) 98 Oxygen Delivery Method Room Air Intake Visit Reasons: f/u hypercholesterolemia and chronic conditions Intake Note: Patient is here to follow up on his cholesterol and chronic conditions. Allergies pollen extracts Allergy (Verified 07/21/23 09:20) sneezing Tobacco use date assessed: 07/21/23 Fall risk assessment: No Falls in past year Last assessed Fall Risk: 07/21/23 Dental Screening Dental Screen Date: 07/21/23 Did you have a dental visit in the last 12 months?: Yes Did you have a dental problem in the last 6 months where you did not have access to dental care?: No Was dental information given to patient?: Patient has dentist HPI f/u hypercholesterolemia and chronic conditions HPI Details 68 y/o male presents to f/u hypercholesterolemia and chronic conditions. A1c had been greater than 7.0% and had started a low dose of glipizide. Last A1c 04/21/23 7.2%. A1c today 07/21/23 6.5%. He denies any problems with the glipizide. No recent lipid panel to review. Follows up with Heme-Onc for metastatic non-small cell lung cancer diagnosed in December 2022. Surveillance brain MRI 06/18/23 showed progression of brain lesions. Has been started on dexamethasone 2mg b.i.d. and referred to [facility] for consideration of stereotactic radiation therapy. [facility] Medical History Patient denies medical problems Surgical History History of tonsillectomy History of tonsillectomy Family History Brother Diabetes mellitus Father Lung cancer Mother Stroke Social History Household Members: Spouse Housing: House Do you presently have visiting nurse or other home services: No Alcohol intake: never Patient Tobacco Use Status: Former Tobacco user Tobacco use type: Cigarette Years Smoked: quit smoking 6 months ago e-Cigarette/Vaping Use: Former Use Second Hand Smoke Exposure: No service: No Current occupational status: retired Current occupational exposures/hazards: No Cognitive needs: No Hearing needs: No Vision needs: Yes (Glasses) Questionnaire Thrive Questionnaire Date Thrive assessed: 02/05/21 WILLY-7 AMB Questionnaire WILLY-7 Date WILLY - 7 assessed: 03/19/22 Source: Developed by Drs. Moreno Tello, Rachelle Seals, Juan Harrison and colleagues, with an educational kelley from [employer]. Review of Systems Const Denies chills, Denies fatigue, Denies fever(s), Denies headache(s) and Denies weakness ENT Denies dizziness and Denies headache(s) Card Denies chest pain, Denies lightheadedness, Denies dyspnea and Denies other (Palpitations) Resp Denies cough, Denies dyspnea, Denies wheezing and Denies other ( shortness of breath) Musc Denies numbness and Denies tingling Neuro Denies dizziness, Denies headache(s), Denies numbness, Denies tingling, Denies paresthesias and Denies weakness Psych Denies anxiety and Denies depression Endo Denies fatigue Aller/Immun Denies wheezing Physical exam (Primary Care) Vital Signs: Last Vital Signs Pulse 81 07/21/23 09:17 BP 138/70 07/21/23 09:17 Pulse Ox 98 07/21/23 09:17 Oxygen Delivery Method Room Air 07/21/23 09:17 BMI result Body Mass Index 30.1 Tobacco/Smoking Status: Tobacco use Status Tobacco use date assessed 07/21/23 07/21/23 09:30 Patient Tobacco Use Status Former Tobacco user 07/21/23 09:30 Tobacco use type Cigarette 07/21/23 09:30 e-Cigarette/Vaping Use Former Use 07/21/23 09:30 Thrive Assessment: Date of Thrive Assessment Date Thrive assessed 02/05/21 07/21/23 09:30 Const General: no acute distress and well developed Nutritional Appearance: well nourished Orientation/consciousness: patient oriented x3 HENMT Head: Yes normocephalic and Yes atraumatic Eyes General: appearance normal, both eyes and all related structures Pupils: Equal, round and reactive pupils present EOM: EOMs intact bilaterally Resp Effort & Inspection: normal respiratory effort Auscultation: clear to auscultation bilaterally Cardio Rate: regular rate Rhythm: regular rhythm Heart sounds: S1 normal heart sound present, S2 normal heart sound present, no gallops, no murmurs and no rubs Neuro General: patient oriented x3 and gait normal Cranial nerves: Yes Equal, round and reactive pupils present Psych Affect: normal affect Results AMB Hemoglobin A1c AMB Hemoglobin A1c 6.5 % Last Edit by Jackie Jaquez CMA on 07/21/23 09:40 Results Reviewed Results Reviewed: Laboratory Last Values Hgb A1c (Clinic) 6.5 % (4.0-6.0) H 07/21/23 09:34 Assessment and Plan Assessment & Plan (1) Diabetes: Code(s): E11.9 - Type 2 diabetes mellitus without complications Qualifiers: Diabetes mellitus complication status: without complication Diabetes mellitus alf insulin use: without alf use Diabetes mellitus type: type 2 Qualified Code(s): E11.9 - Type 2 diabetes mellitus without complications Plan: He?is?on?steroids?and?A1c?had?been?elevated?and?I?added?glipizide?at?last?visit. A1c?now?6.5%.??Goal?is?less?than?7.0% Good?control.??Continue?current?medication (2) Hypercholesterolemia: Code(s): E78.00 - Pure hypercholesterolemia, unspecified Plan: He?is?on?Zetia?and?due?to?recheck?his?lipids He?can?get?his?lipids?drawn?fasting?any?time?prior?to?next?visit?and?we?will?follow-up (3) Non-small cell cancer of right lung: Code(s): C34.91 - Malignant neoplasm of unspecified part of right bronchus or lung Plan: Stable?and?patient?feels?well?today. Has?upcoming?appointment?with?Hematology-Oncology Orders: Orders AMB Hemoglobin A1c Today Z13.9 - Encounter for screening, unspecified Coding Level of Care Code Est Pt Level 4 (71073) Diagnoses Diabetes E11.9 Diabetes mellitus complication status: without complication Diabetes mellitus terminal makeup operator insulin use: without terminal makeup operator use Diabetes mellitus type: type 2 Hypercholesterolemia E78.00 Non-small cell cancer of right lung C34.91
== END 2023-07-21 10:25 | disposition home or self-care (01) ==
PROVIDERS: PCP Family Medicine; Visit Provider Family Medicine
DX: E11.9 Type 2 diabetes mellitus without complications (principal); E78.00 Pure hypercholesterolemia, unspecified; C34.91 Malignant neoplasm of unspecified part of right bronchus or lung
CPT/HCPCS: 83036; 99214

== ENCOUNTER 2023-07-30 08:36 | Outpatient (REF) | payer MEDICARE, OTHER, SELFPAY ==
[2023-07-30 08:47] LABS: MANUAL DIFF FLAG NO
[2023-07-30 08:52] LABS: Basophils Absolute Auto 0.1 X10*3/uL (0.0-0.2); Basophils Percent Auto 0.5 % (0-2); Eosinophils Absolute Auto 0.2 X10*3/uL (0.0-0.4); Eosinophils Percent Auto 1.8 % (0-4); Hematocrit 45.2 % (42.0-52.0); Imm Gran Abs Auto 0.21 X10*3/uL (0.00-0.03); Imm Gran Pct Auto 1.9 % (0.0-0.4); Lymphocytes Absolute Auto 1.4 X10*3/uL (1.2-4.9); Lymphocytes Percent Auto 12.6 % (20-40); Mean Corpuscular HGB Conc 33.2 g/dl (31.0-36.0); Mean Corpuscular Hemoglobin 29.2 pg (27.0-33.0); Mean Corpuscular Volume 88.1 fL (80.0-98.0); Mean Platelet Volume 8.4 fL (9.4-12.4); Monocytes Absolute Auto 0.8 X10*3/uL (0.1-1.2); Monocytes Percent Auto 7.4 % (2-11); Neutrophils Absolute Auto 8.3 x10*3/uL (2.0-8.3); Neutrophils Percent Auto 75.8 % (45-73); Platelet Count 331 X10*3/uL (160-400); Red Blood Count 5.13 X10*6/uL (4.60-5.80); Red Cell Distribution Width 15.5 % (11.0-16.0)
[2023-07-30 09:13] LABS: Alanine Aminotransferase 208 U/L (0-40); Alkaline Phosphatase 224 U/L (39-117); Anion Gap 15 (12-20); Aspartate Amino Transferase 25 U/L (5-37); Blood Urea Nitrogen 25 mg/dL (9-16); Calcium 10.8 mg/dL (8.4-10.2); Carbon Dioxide 27 mmol/L (22-29); Chloride 101 mmol/L (96-108); Cholesterol 223 mg/dL (<200); Estimated Glomerular Filt Rate > 60; Glucose Random 134 mg/dL (60-115); HDL Cholesterol 50 mg/dL (>40); LDL Cholesterol Calculated 139 mg/dL (<100); Potassium 4.5 mmol/L (3.3-5.1); Sodium 138 mmol/L (135-145); Total Protein 8.2 g/dL (6.5-8.0); Triglycerides 170 mg/dL (<150)
[2023-07-30 09:56] LABS: Thyroid Stimulating Hormone 1.21 uIU/mL (0.32-4.0)
== END 2023-07-30 08:37 | disposition home or self-care (01) ==
LOC: HO.LAB 08:36
PROVIDERS: Internal Medicine; PCP Family Medicine; Visit Provider Family Medicine
DX: Z13.89 Encounter for screening for other disorder (principal)
CPT/HCPCS: 36415; 80053; 80061; 84443; 85025

== ENCOUNTER 2023-08-02 09:58 | Inpatient (IN) | payer MEDICARE, OTHER, SELFPAY ==
[2023-08-02] VITALS (14 sets, daily range): BP systolic 80–161; BP diastolic 35–80; PULSE 87–131; RESP 16–28; TEMP 36.4–39.5; O2SAT 88–96; BMI 26.6
--- NOTE | ~2023-08-02 | US_ITS ---
EXAMINATION: US VENOUS ULTRASOUND WITH DOPPLER LOWER EXTREMITY, BILATERAL CLINICAL INFORMATION: Elevated d-dimer COMPARISON: None available. TECHNIQUE: Ultrasound of the deep veins is performed from the hip to the calf with compression sonography and color and pulse Doppler assessment. Spectral analysis with color-flow imaging is performed. FINDINGS: RIGHT: There is normal venous compression and respiratory variation and augmented flow. The visualized common femoral vein, superficial femoral vein, profunda femoral vein, popliteal vein, and the trifurcation region shows no evidence of deep venous thrombosis. There is no significant popliteal fossa cyst. LEFT: There is normal venous compression and respiratory variation and augmented flow. The visualized common femoral vein, superficial femoral vein, profunda femoral vein, popliteal vein, and the trifurcation region shows no evidence of deep venous thrombosis. There is no significant popliteal fossa cyst. If the patient's symptoms persist, followup ultrasound in 5 days 7 days might be of value to exclude proximal propagation from a non-visualized calf vein. US/US venous duplex LE BI IMPRESSION: No DVT demonstrated in either lower extremity.
--- NOTE | ~2023-08-02 | XR_ITS ---
EXAMINATION: XR CHEST CLINICAL INFORMATION: Febrile COMPARISON: CT chest 01/14/2023 TECHNIQUE: Frontal view of the chest was obtained. FINDINGS: The heart and pulmonary vessels are unremarkable. The right hemidiaphragm is elevated. There is infiltrate/atelectasis/scarring at the right lung base. This is in the region of the previously seen large lobular mass at the right lung base seen on the 01/14/2023 CT scan. No other abnormalities are seen. No large pleural effusions are present. XR/XR chest 1V IMPRESSION: Right lower lobe infiltrate/atelectasis/scarring.
--- NOTE | ~2023-08-02 | CT_ITS ---
EXAMINATION: CT HEAD WITHOUT CONTRAST CLINICAL INFORMATION: Intracranial metastatic disease. Evaluate for intracranial mass effect. COMPARISON: Brain MRI 06/18/2023. TECHNIQUE: Contiguous axial imaging was performed from the skull base to vertex without intravenous administration of contrast. This CT examination was performed using dose optimization techniques as appropriate, variously including the following: *Automated exposure control *Adjustment of mA and/or kV according to patient size (this includes techniques or standardized protocols for targeted exams where dose is matched to indication/reason for exam; i.e. extremities or head) *Use of iterative reconstruction technique DLP: 923 mGy-cm FINDINGS: There is hyperdensity associated with the dominant intracranial metastasis involving the left posterior temporal lobe that may represent a manifestation of intralesional hemorrhage. There is increasing expansile hypoattenuation that most likely represents edema surrounding an metastasis involving the right precentral gyrus best visualized on axial image 27 of 36 series 2. No substantial intracranial mass effect. No midline shift or hydrocephalus. Scattered chronic small vessel ischemic changes are visualized within the periventricular white matter. The calvarium and skull base are grossly intact. No mastoid or middle ear effusion. Mild paranasal sinus disease with a few retention cysts visualized within the alveolar recesses of both maxillary sinuses. CT/CT head/brain wo IV con IMPRESSION: There is hyperdensity associated with the dominant intracranial metastasis involving the left posterior temporal lobe that may represent a manifestation of intralesional hemorrhage. There is also increasing expansile hypoattenuation that most likely represents edema surrounding a metastasis involving the right precentral gyrus. No substantial intracranial mass effect. No midline shift or hydrocephalus.
--- NOTE | 2023-08-02 10:09 | ED_ITS ---
HPI - Weakness General Chief complaint: Weakness Stated complaint: WEAK/CONFUSED,CHEMO FOR LUNG CA/BRAIN METS PER EMS Time Seen by Provider: 08/02/23 10:02 Source: EMS Mode of arrival: EMS Limitations: altered mental status History of Present Illness HPI Narrative: Patient is currently undergoing chemo and radiation for metastatic lung cancer to the brain. He was too weak this morning to get out of bed and was confused so his called EMS MD Complaint: generalized weakness and difficulty walking Onset (ago): hour(s) Duration: constant Severity: severe Associated symptoms: confusion Related Data Home Medications Medication Instructions Recorded Confirmed ezetimibe 10 mg tablet (Zetia) 10 mg PO DAILY 12/21/22 07/23/23 Previous Rx's Medication Instructions Recorded alcohol swabs (Alcohol Wipes) 1 pad topical QIDACHS #200 ea 12/26/20 blood sugar diagnostic (FreeStyle #100 ea 12/26/20 Lite Strips) blood-glucose meter (FreeStyle #1 ea 12/26/20 Lite Meter kit) lancets 28 gauge (FreeStyle #100 ea 12/26/20 Lancets) ondansetron 8 mg disintegrating 8 mg PO Q8H PRN Nausea #30 tabs 01/29/23 tablet hydrocortisone 2.5 % topical cream 1 appl topical TID #200 grams 02/19/23 finasteride 5 mg tablet (Proscar) 5 mg PO DAILY 90 days #90 tabs 04/20/23 diclofenac sodium 1 % topical gel 4 g topical QID 30 days #100 grams 04/21/23 tamsulosin 0.4 mg capsule 0.4 mg PO BEDTIME 90 days #90 caps 06/18/23 dexamethasone 2 mg tablet 2 mg PO BID #60 tabs 07/02/23 glipizide 2.5 mg tablet, extended 2.5 mg PO DAILY 30 days #30 tabs 07/15/23 release 24 hr Allergies Allergy/AdvReac Type Severity Reaction Status Date / Time pollen extracts Allergy sneezing Verified 08/02/23 10:16 Review of Systems 2 Review of Systems: Yes Unobtainable due to mental status Neurologic: Denies Sensory deficit (Neuro) PMFSH Past Medical History Onset Date is defined in the Problem List Problems that require an onset date and time if occurred within 24 hrs of arrival to the ED Aortic Dissection and Rupture; Neurologic impairment; Cardiopulmonary Arrest; Endotracheal Intubation; Insertion or Replacement of Mechanical Circulatory Assist Device Medical History Patient denies medical problems Surgical History History of tonsillectomy History of tonsillectomy Family History Family History Brother Diabetes mellitus Father Lung cancer Mother Stroke Social History Social History Household Members: Spouse Housing: House Do you presently have visiting nurse or other home services: No Alcohol intake: never Patient Tobacco Use Status: Former Tobacco user Tobacco use type: Cigarette Years Smoked: quit smoking 6 months ago e-Cigarette/Vaping Use: Former Use Second Hand Smoke Exposure: No Advance Directives: Yes Advance Directives on File: Yes Advance Directives Date on File: 12/27/20 service: No Current occupational status: retired Current occupational exposures/hazards: No Cognitive needs: No Hearing needs: No Vision needs: Yes (Glasses) Physical Exam 2 Vital Signs: Vital Signs: Last Vital Signs Temp 103.1 F H 08/02/23 10:14 Pulse 109 H 08/02/23 11:53 Resp 18 08/02/23 11:53 BP 91/52 L 08/02/23 11:53 Pulse Ox 92 08/02/23 11:53 O2 Del Method Room Air 08/02/23 11:53 BMI result Body Mass Index 26.6 Const: Other: Ill appearing male short of breath, confused Orientation/consciousness: oriented to person Limitations: altered mental status HEENT: Head: Yes normal to inspection Ears: external ears normal General nose exam: Normal external nose present Mouth: Normal oral and palatal mucosa present and oropharynx normal Throat: Yes posterior oropharynx normal Eyes: General: appearance normal, both eyes and all related structures Neck: Other: supple Neck: Yes normal visual inspection Chest: Chest palpation & inspection: normal inspection of the chest Resp: Auscultation: clear to auscultation bilaterally Cardio: Other: tachycardia Jugular venous distension: no JVD GI: Inspection: Yes normal to inspection Palpation (GI): Soft to palpation, nontender and No hepatosplenomegaly present Auscultation: normal bowel sounds : General: Yes no CVA tenderness Back/Spine/Pelvis: Back: no CVA tenderness Skin: General skin exam: no rashes or lesions noted Neuro: Other: moves all extremities General: oriented to person Cranial nerves: Yes CN's II-XII intact bilaterally Sensory Exam: No Sensory deficit (Neuro) Extrem: General: Yes normal to inspection Psych: Appearance: grossly normal Course Reevaluation(s) Reevaluation #1: Patient with infection secondary to UTI, will admit, does not appear septic at this time Reevaluation #2: I spent 40 minutes of critical care, with interventions, assessments, speaking to patient, consultants, and family. Time: 12:58 Medications Administered Discontinued Medications Generic Name Dose Route Start Last Admin Trade Name Freq PRN Reason Stop Dose Admin Acetaminophen 975 mg 08/02/23 10:20 08/02/23 11:01 Acetaminophen 325 Mg Tablet PO 08/02/23 10:21 975 mg ONCE ONE Administration Sodium Chloride 2,817 mls @ 2,817 mls/hr 08/02/23 10:22 08/02/23 12:21 Ns 30 ml/kg infuse over 1 hr (2817 ml) 08/02/23 11:21 Infused IV Infusion .Q1H STA Piperacillin Sod/Tazobactam 50 mls @ 100 mls/hr 08/02/23 10:23 08/02/23 11:30 Sod 3.375 gm/ Sodium Chloride IV 08/02/23 10:52 Infused ONCE ONE Infusion Medical Decision Making Differential Diagnosis Differential Diagnoses: The differential diagnosis associated with the presentation includes (sepsis, bacteremia, pneumonia, UTI, covid, flu were all considered) Admission/Observation Consideration of admission/observation: Escalation of care including admission/observation considered (upon arrival patient considered for admission) Consult Healthcare Provider Management of the patient was discussed with: Hospitalist Lab Data MDM Lab Attestation statement: I reviewed the patient's lab results. (more renal insufficiency than baseline) 08/02/23 10:56 08/02/23 10:56 Labs: Lab Results 08/02/23 08/02/23 08/02/23 Range/Units 10:55 10:56 11:04 WBC 8.4 (4.8-10.8) X10*3/uL RBC 4.87 (4.60-5.80) X10*6/uL Hgb 14.4 (14.0-18.0) g/dl Hct 42.2 (42.0-52.0) % MCV 86.7 (80.0-98.0) fL MCH 29.6 (27.0-33.0) pg MCHC 34.1 (31.0-36.0) g/dl RDW 15.5 (11.0-16.0) % Plt Count 330 (160-400) X10*3/uL MPV 8.6 L (9.4-12.4) fL Immature Gran % (Auto) 2.4 H (0.0-0.4) % Neut % (Auto) 73.5 H (45-73) % Lymph % (Auto) 11.7 L (20-40) % [place] % (Auto) 9.6 (2-11) % Eos % (Auto) 2.4 (0-4) % Baso % (Auto) 0.4 (0-2) % Lymph # (Auto) 1.0 L (1.2-4.9) X10*3/uL [place] # (Auto) 0.8 (0.1-1.2) X10*3/uL Eos # (Auto) 0.2 (0.0-0.4) X10*3/uL Baso # (Auto) 0.0 (0.0-0.2) X10*3/uL Abs Immat Gran (auto) 0.20 H (0.00-0.03) X10*3/uL Absolute Neuts (auto) 6.2 (2.0-8.3) x10*3/uL Absolute Nucleated RBC 0.000 (0.0-0.012) X10*3/uL Nucleated RBC % (auto) 0.0 (0.0-0.2) /100WBC D-Dimer High Sensitivty 548 NG/ML Sodium 137 (135-145) mmol/L Potassium 4.4 (3.3-5.1) mmol/L Chloride 104 (96-108) mmol/L Carbon Dioxide 21 L (22-29) mmol/L Anion Gap 16 (12-20) BUN 40 H (9-16) mg/dL Creatinine 1.80 H (0.5-1.4) mg/dL Estim Creat Clear Calc 44.3 Estimated GFR 37 Random Glucose 124 H (60-115) mg/dL Lactic Acid 1.0 (0.5-2.0) mmol/L Calcium 10.1 D (8.4-10.2) mg/dL Total Bilirubin 0.7 (0.0-1.0) mg/dL AST 20 (5-37) U/L ALT 78 H (0-40) U/L Alkaline Phosphatase 166 H (39-117) U/L Troponin I High Sens 10.8 (<3.5-35.0) ng/L Total Protein 7.6 (6.5-8.0) g/dL Albumin 3.6 (3.5-5.0) g/dL Urine Color Yellow Urine Appearance Cloudy Urine pH 5.0 (5.0-9.0) Ur Specific [place] 1.015 (1.005-1.025) Urine Protein 30 (1+) H (Neg-Trace) mg/dL Urine Glucose (UA) Negative (Negative) mg/dL Urine Ketones Trace (Negative) mg/dL Urine Blood Trace H (Negative) Urine Nitrite Negative (Negative) Ur Leukocyte Esterase Moderate (2+) H (Negative) Urine RBC 0-2 (0-2) /HPF Urine WBC 21-50 H (0-5) /HPF Ur Squamous Epith Cells 6-10 (0-2) /HPF Urine Bacteria 4+ (None Seen) Hyaline Casts 3-5 (0-2) /LPF COVID-19 (SUMEET) Negative (Negative) COVID-19 Clin Com See Note Influenza Type A (SKYLA) Negative (Negative) Influenza Type B (SKYLA) Negative (Negative) Influenza A & B Note See Note Independent Interpretation I performed an independent interpretation of an: EKG (sinus 130, RBBB, no st or twave changes) and Plain X-Ray (CXR no infiltrate) Independent Historian Clinical information obtained from an independent historian. History obtained from or confirmed by: EMS External Record Review External record reviewed: Outpatient record Chronic Conditions Patient?s care impacted by: Other (metastatic cancer) Discharge Plan Discharge Clinical Impression: Urinary tract infection, Fever, Acute alteration in mental status Patient Disposition: Admitted As Inpatient Prescriptions: No Action finasteride [Proscar] 5 mg tablet 5 mg PO DAILY 90 Days Qty: 90 2RF tamsulosin 0.4 mg capsule 0.4 mg PO BEDTIME 90 Days Qty: 90 0RF glipizide 2.5 mg tablet extended release 24hr 2.5 mg PO DAILY 30 Days Qty: 30 2RF (DME) lancets [FreeStyle Lancets] 28 gauge misc See Rx Instructions .ROUTE .MEDSUPPLY Qty: 100 0RF Rx Instructions: As directed (DME) FreeStyle Lite Strips Strip See Rx Instructions .ROUTE .MEDSUPPLY Qty: 100 0RF Rx Instructions: As directed alcohol swabs [Alcohol Wipes] Pads, Medicated 1 pad topical QIDACHS Qty: 200 0RF (DME) blood-glucose meter [FreeStyle Lite Meter] Kit See Rx Instructions .ROUTE .MEDSUPPLY Qty: 1 0RF Rx Instructions: As directed ezetimibe [Zetia] 10 mg tablet 10 mg PO DAILY ondansetron 8 mg Tablet,Disintegrating 8 mg PO Q8H PRN (Reason: Nausea) Qty: 30 3RF hydrocortisone 2.5 % Cream 1 appl TOPICAL TID Qty: 200 1RF dexamethasone 2 mg Tablet 2 mg PO BID Qty: 60 1RF diclofenac sodium 1 % gel 4 g topical QID 30 Days Qty: 100 2RF Rx Instructions: apply to single knee, ankle, foot; for foot includes sole/toes/top of foot
--- NOTE | 2023-08-02 10:10 | ECG_ITS ---
Test Reason : WEAKNESS/TACHYCARDIA Blood Pressure : / mmHG Vent. Rate : 129 BPM Atrial Rate : 129 BPM P-R Int : 154 ms QRS Dur : 152 ms QT Int : 298 ms P-R-T Axes : 000 -66 004 degrees QTc Int : 436 ms Sinus tachycardia Left axis deviation Right bundle branch block Inferior infarct , age undetermined Abnormal ECG No previous ECGs available Referred By: Jose Pedraza Electronically Signed By:Dakota Coy
[2023-08-02] MEDS: SODIUM CHLORIDE 2817 ML IV (10:27)
[2023-08-02] MEDS: Piperacillin Sodium/Tazobactam 3.375 GM in 0.9 % Sodium Chloride 50 ML IV (11:00)
[2023-08-02] MEDS: Acetaminophen 325 MG TABLET 975 MG PO (11:01)
[2023-08-02 11:04] LABS: MANUAL DIFF FLAG NO
[2023-08-02 11:05] LABS: Basophils Percent Auto 0.4 % (0-2); Eosinophils Absolute Auto 0.2 X10*3/uL (0.0-0.4); Eosinophils Percent Auto 2.4 % (0-4); Hematocrit 42.2 % (42.0-52.0); Hemoglobin 14.4 g/dl (14.0-18.0); Imm Gran Pct Auto 2.4 % (0.0-0.4); Lymphocytes Percent Auto 11.7 % (20-40); Mean Corpuscular HGB Conc 34.1 g/dl (31.0-36.0); Mean Corpuscular Hemoglobin 29.6 pg (27.0-33.0); Mean Corpuscular Volume 86.7 fL (80.0-98.0); Mean Platelet Volume 8.6 fL (9.4-12.4); Monocytes Absolute Auto 0.8 X10*3/uL (0.1-1.2); Monocytes Percent Auto 9.6 % (2-11); Neutrophils Absolute Auto 6.2 x10*3/uL (2.0-8.3); Neutrophils Percent Auto 73.5 % (45-73); Platelet Count 330 X10*3/uL (160-400); Red Blood Count 4.87 X10*6/uL (4.60-5.80); Red Cell Distribution Width 15.5 % (11.0-16.0); White Blood Count 8.4 X10*3/uL (4.8-10.8)
[2023-08-02 11:14] LABS: D Dimer High Sensitivity 548 NG/ML
[2023-08-02 11:19] LABS: Appearance Urine Cloudy; Color Urine Yellow; Glucose Urine UA Negative (Negative); Leukocyte Esterase Urine Moderate (2+) (Negative); Nitrite Urine Negative (Negative); Specific Gravity - Urine 1.015 (1.005-1.025); UMIC TRIGGER UACC YES; Urine Blood Trace (Negative); Urine Ketones Trace mg/dL (Negative); Urine Protein 30 (1+) mg/dL (Neg-Trace)
[2023-08-02 11:27] LABS: Bacteria Urine 4+ (None Seen); RBC Urine 0-2 /HPF (0-2); UACC Culture Trigger YES; WBC Urine 21-50 /HPF (0-5)
[2023-08-02 11:27] LABS: Alanine Aminotransferase 78 U/L (0-40); Albumin Level 3.6 g/dL (3.5-5.0); Alkaline Phosphatase 166 U/L (39-117); Anion Gap 16 (12-20); Aspartate Amino Transferase 20 U/L (5-37); Bilirubin Total 0.7 mg/dL (0.0-1.0); Blood Urea Nitrogen 40 mg/dL (9-16); Calcium 10.1 mg/dL (8.4-10.2); Carbon Dioxide 21 mmol/L (22-29); Chloride 104 mmol/L (96-108); Creatinine Clr Calc Pharmacy 44.3; Estimated Glomerular Filt Rate 37; Glucose Random 124 mg/dL (60-115); Potassium 4.4 mmol/L (3.3-5.1); Sodium 137 mmol/L (135-145); Total Protein 7.6 g/dL (6.5-8.0)
[2023-08-02 11:36] LABS: Troponin-I High Sensitivity 10.8 ng/L (<3.5-35.0)
[2023-08-02 11:38] LABS: COVID-19 Test Negative (Negative); IDNOW Serial# 08D9AD1C
[2023-08-02 11:39] LABS: IDNOW Serial# 9DB6401D; Influenza A Negative (Negative); Influenza B2 Negative (Negative)
--- NOTE | 2023-08-02 11:58 | PC.NURSE ---
this RN resumed care of pt at this time. vss and up to date. pt remains sinus tachy on the electronic device monitor. pt seemingly diaphoretic at this time - will reassess rectal temperature shortly. IVF still infusing at this time. pt passed swallow eval w/o complications - no deficits noted. no sob/wob noted. respirations even and unlabored. family bedside. call davis placed within reach.
--- NOTE | 2023-08-02 12:22 | PC.NURSE ---
repeat rectal temp of 101.4 at this time. IVF finished infusing at this time. pt continues to rest in no apparent distress at this time. respirations remain even and unlabored. family bedside. call davis placed within reach.
--- NOTE | 2023-08-02 13:53 | PC.NURSE ---
pt speaking w/ admitting provider - pt and family aware/of plan of care at this time.
--- NOTE | 2023-08-02 14:00 | P.HPHOSP_ITS ---
History of Present Illness Date of Service: 08/02/23 <Staci Lopez - Last Filed: 08/02/23 15:04> Chief Complaint: Confusion and weakness that began this morning <Staci Lopez - Last Filed: 08/02/23 15:04> Confusion and weakness <Miguel Sanchez MD - Last Filed: 08/14/23 18:12> This 68 yo M with PMHx of non-small cell lung cancer (treated with chemo - Keytruda) with metastases to the brain (treated with radiation at [facility]), non-insulin dependent diabetes, HLD, and BPH, presented to the ED today with his via EMS after he had weakness, difficulty ambulating, and incoherent speech this morning. His states that patient has been feeling poorly since first radiation treatment for brain mets on 07/29/22 and has had fatigue and poor oral intake and occasional vomiting since then. However, she states that his condition was acutely worse this morning when she was trying to get him ready for his next radiation appointment. In ED he had a UTI with UA positive for WBC, bacteria, leukocyte esterase, blood, and protein. CXR showed infiltrate/atelectasis/scarring at the right lung base (this is in the region of the previously seen large lobular mass at the right lung base seen on the 01/14/2023 CT scan). D-Dimer 548 (in the setting of active malignancy and chemo/radiation) Creatinine was elevated at 1.8 (prev 1.2) and BUN 40 (prev 25), ALT 78, alk phos 166. ECG, CBC, and URI viral panel were noncontributory. He was septic temperature of 103.1 and tachycardia at 131 and received Zosyn, acetaminophen, and IVF. BP is soft at 97/55. He will be admitted for further management and treatment of sepsis due to UTI. <Staci Lopez - Last Filed: 08/02/23 15:04> This 68 yo M with PMHx of non-small cell lung cancer (treated with chemo - Keytruda) with metastases to the brain started on XRT on 07/29/23 at [facility], next therapy was to be today, friday 08/04 and Sunday 08/06; h/o non-insulin dependent diabetes, HLD, and BPH, presented to the ED today with his via EMS after he had weakness, difficulty ambulating, and incoherent speech this morning. His states that patient has been feeling poorly since first radiation treatment for brain mets on 07/29/22 and has had fatigue and poor oral intake and occasional vomiting since then. However, she states that his condition was acutely worse this morning when she was trying to get him ready for his next radiation appointment. In ED he had a UTI with UA positive for WBC, bacteria, leukocyte esterase, blood, and protein. CXR showed infiltrate/atelectasis/scarring at the right lung base (this is in the region of the previously seen large lobular mass at the right lung base seen on the 01/14/2023 CT scan). D-Dimer 548 (in the setting of active malignancy and chemo/radiation) Creatinine was elevated at 1.8 (prev 1.2) and BUN 40 (prev 25), ALT 78, alk phos 166. ECG, CBC, and URI viral panel were noncontributory. He was septic temperature of 103.1 and tachycardia at 131 and received Zosyn, acetaminophen, and IVF. BP is soft at 97/55. He will be admitted for further management and treatment of sepsis due to UTI. <Miguel Sanchez MD - Last Filed: 08/14/23 18:12> Review of Systems 2 Review of Systems: No abdominal pain, dysuria, increased frequency, hematuria, chest pain, SOB. <Staci Lopez - Last Filed: 08/02/23 15:04> Yes all other systems are reviewed and are negative <Staci Lopez - Last Filed: 08/02/23 15:04> [facility] Medical History: Medical History Patient denies medical problems <Staci Lopez - Last Filed: 08/02/23 15:04> Family History: Family History Brother Diabetes mellitus Father Lung cancer Mother Stroke <Staci Lopez - Last Filed: 08/02/23 15:04> Surgical History: Surgical History History of tonsillectomy History of tonsillectomy <Staci Lopez - Last Filed: 08/02/23 15:04> Social History: Social History Household Members: Family Housing: House Do you presently have visiting nurse or other home services: No Unable to assess alcohol history related to: Unknown Alcohol intake: never Patient Tobacco Use Status: Former Tobacco user Tobacco use type: Cigarette Years Smoked: quit smoking 6 months ago e-Cigarette/Vaping Use: Former Use Second Hand Smoke Exposure: No Use of substances other than those prescribed or required for medical reasons: No Have you been hit, kicked, punched, or otherwise hurt by someone within the past year? If so, by whom?: No Do you feel safe in your current relationship?: Yes Advance Directives Date on File: 12/27/20 Do you have thoughts of harming others: None Do you have a plan to hurt others: No Plan Do you have the means to hurt others: No Recently lost weight without trying: No service: No Current occupational status: retired Current occupational exposures/hazards: No Cognitive needs: No Hearing needs: No Vision needs: Yes (Glasses) <Staci Lopez - Last Filed: 08/02/23 15:04> Meds Allergies/Adverse reactions: Allergies Allergy/AdvReac Type Severity Reaction Status Date / Time pollen extracts Allergy sneezing Verified 08/02/23 10:16 <Staci Lopez - Last Filed: 08/02/23 15:04> Active Medications: Current Medications Dextrose (Dextrose 50 % 25 Gm/50 Ml Syringe) 25 gm IVPUSH Q15M PRN; Protocol PRN Reason: per Hypoglycemia Standing Ord. Glucose (Glucose Gel 15 Gm Gel..Gram.) 15 gm PO Q15M PRN; Protocol PRN Reason: per Hypoglycemia Standing Ord. Insulin Human Lispro (Insulin Lispro 100 Unit/Ml 3 Ml Vial) 0 unit SUBCUT QIDACHS [facility]; Protocol <Staci Lopez - Last Filed: 08/02/23 15:04> Home medications: Home Medications Medication Instructions Recorded Confirmed Last Taken Type ezetimibe 10 mg tablet (Zetia) 10 mg PO DAILY 12/21/22 08/06/23 Unknown History <Staci Lopez - Last Filed: 08/02/23 15:04> Physical Exam 2 Vital Signs and Narrative: Vital Signs: Last Vital Signs Temp 103.1 F H 08/02/23 10:14 Pulse 109 H 08/02/23 11:53 Resp 18 08/02/23 11:53 BP 91/52 L 08/02/23 11:53 Pulse Ox 92 08/02/23 11:53 O2 Del Method Room Air 08/02/23 11:53 BMI result Body Mass Index 26.6 <Staci Lopez - Last Filed: 08/02/23 15:04> A&O x 3 Appearing in no acute distress HEENT: head is normocephalic atraumatic, eyes pupils are PERRLA, sclera is anicteric Pulm: Clear to ascultation, no increased respiratory effort CVS: RRR, no murmurs, no JVD, pulses 2+ throughout, no LE edema GI/: Soft, non-distended, non-tender. No CVA tenderness Neuro: Alert x3, incomplete MMSE: unable to recall objects, unable to spell world backwards <Staci Lopez - Last Filed: 08/02/23 15:04> Results Labs CBC and Chem 7: 08/02/23 10:56 08/03/23 09:44 <Staci Lopez - Last Filed: 08/02/23 15:04> Labs: Laboratory Results - last 24 hr 08/02/23 08/02/23 08/02/23 10:55 10:56 11:04 MCV 86.7 MCH 29.6 MCHC 34.1 RDW 15.5 Plt Count 330 MPV 8.6 L Immature Gran % (Auto) 2.4 H Neut % (Auto) 73.5 H Lymph % (Auto) 11.7 L [place] % (Auto) 9.6 Eos % (Auto) 2.4 Baso % (Auto) 0.4 Lymph # (Auto) 1.0 L [place] # (Auto) 0.8 Eos # (Auto) 0.2 Baso # (Auto) 0.0 Abs Immat Gran (auto) 0.20 H Absolute Neuts (auto) 6.2 Absolute Nucleated RBC 0.000 Nucleated RBC % (auto) 0.0 D-Dimer High Sensitivty 548 Anion Gap 16 Estim Creat Clear Calc 44.3 Estimated GFR 37 Random Glucose 124 H Lactic Acid 1.0 Calcium 10.1 D Total Bilirubin 0.7 AST 20 ALT 78 H Alkaline Phosphatase 166 H Total Protein 7.6 Albumin 3.6 Urine Color Yellow Urine Appearance Cloudy Urine pH 5.0 Ur Specific Wells 1.015 Urine Protein 30 (1+) H Urine Glucose (UA) Negative Urine Ketones Trace Urine Blood Trace H Urine Nitrite Negative Ur Leukocyte Esterase Moderate (2+) H Urine RBC 0-2 Urine WBC 21-50 H Ur Squamous Epith Cells 6-10 Urine Bacteria 4+ Hyaline Casts 3-5 COVID-19 (SUMEET) Negative COVID-19 Clin Com See Note Influenza Type A (SKYLA) Negative Influenza Type B (SKYLA) Negative Influenza A & B Note See Note <Staci Lopez - Last Filed: 08/02/23 15:04> Imaging Radiologist's Impressions: Impressions Chest X-Ray 08/02/23 11:13 IMPRESSION: Right lower lobe infiltrate/atelectasis/scarring. <Staci Lopez - Last Filed: 08/02/23 15:04> Assessment and Plan (1) Acute alteration in mental status: Status: Acute <Staci Lopez - Last Filed: 08/02/23 15:04> (2) Urinary tract infection: Status: Acute <Staci Lopez - Last Filed: 08/02/23 15:04> (3) Sepsis: Status: Acute <Staci Lopez - Last Filed: 08/02/23 15:04> (4) Acute kidney injury: Status: Acute <Staci Lopez - Last Filed: 08/02/23 15:04> This 68 yo M with PMHx of non-small cell lung cancer (treated with chemo) with metastases to the brain (treated with radiation), non-insulin dependent diabetes, HLD, and BPH, presented to the ED today with his via EMS after he had weakness, difficulty ambulating, and incoherent speech this morning being admitted for the management of sepsis in the setting of acute UTI. Sepsis due to UTI - Continue Zosyn - Repeat lactic acid? - Urine culture and blood cultures pending Altered mental status--improved with fluids/antibx/tylenol; likely d/t UTI - Acute change in mental status likely from UTI - Last brain MRI was 06/18/23 which showed progression of intracranial metastatic disease compared to MRI from 03/24/2023 with increased size of previously noted metastatic lesions in the left temporal lobe and right precentral gyrus and new lesions in the right frontal operculum and left parietal lobe. - Consult Dr. Bourne (oncologist) ANJU--possibly due to low volume status from vomiting/decreased PO intake - IVF - BMP in AM Elevated d-dimer--likely due to active malignancy treated with chemo/radiation - Order V/Q scan to r/o PE Non-SCLC with mets to brain on Keytruda - Follow with Dr. Bourne Non-insulin dependent DM controlled with diet - Diebetic diet and SSI HLD - Continue home ezetimibe BPH - Continue home finasteride - Continue home tamsulosin -- hold if BP <90/60 DVT prophylaxis: Heparin Med rec pending Full code Need for inpatient admission for at least 2 midnights for management and monitoring of sepsis due to UTI not otherwise feasible in a less acute setting. <Staci Lopez - Last Filed: 08/02/23 15:04> This 68 yo M with PMHx of non-small cell lung cancer (treated with chemo) with metastases to the brain (treated with radiation), non-insulin dependent diabetes, HLD, and BPH, presented to the ED today with his via EMS after he had weakness, difficulty ambulating, and incoherent speech this morning being admitted for the management of sepsis in the setting of acute UTI. Sepsis due to UTI and PNA - Continue Abx - Urine culture and blood cultures pending Metabolic encephalopathy--d/t UTI, Abx as above, but has mets also, last MRI was 3 weeks ago [facility], consult Dr. Bourne, no localized neuro symptoms, may need repeat MRI ANJU--possibly due to low volume status from vomiting/decreased PO intake, got IVF, repeat labs in the morning Elevated d-dimer--likely due to active malignancy treated with chemo/radiation, no complaint of chest pain or shortness breath Non-SCLC with mets to brain on Keytruda - Follow with Dr. Bourne Non-insulin dependent DM controlled with diet - Diebetic diet and SSI HLD - Continue home ezetimibe BPH - Continue home finasteride - Continue home tamsulosin -- hold if BP <90/60 DVT prophylaxis: Heparin Med rec pending Full code admission for at least 2 midnights for management and monitoring of sepsis due to UTI not otherwise feasible in a less acute setting. <Miguel Sanchez MD - Last Filed: 08/14/23 18:12> Quality Stroke Does the patient have a stroke diagnosis?: No <Miguel Sanchez MD - Last Filed: 08/14/23 18:12> VTE Prior VTE?: No <Miguel Sanchez MD - Last Filed: 08/14/23 18:12> VTE Risk Level:: Medical - moderate - high <Miguel Sanchez MD - Last Filed: 08/14/23 18:12> VTE Device Contraindication: Treatment Not Indicated <Miguel Sanchez MD - Last Filed: 08/14/23 18:12> VTE Drug Contraindication: N/A - Med Ordered <Miguel Sanchez MD - Last Filed: 08/14/23 18:12>
--- NOTE | 2023-08-02 14:07 | PHA.MEDREC ---
Pharmacy Consult ? Medication Reconciliation Pharmacy has completed the medication reconciliation. Spouse had a list on her phone.
--- NOTE | 2023-08-02 14:17 | PC.NURSE ---
Antibiotic ordered at 1023 delayed d/t obtaining blood cultures and labs by tech. All cultures obtained at 1055. Provider aware of delay
--- NOTE | 2023-08-02 15:00 | PC.NURSE ---
vss and up to date at this time. nsr on the cardiac cath technician. pt denies pain at this time. no sob/wob noted. respirations remain even adn unlabored. family remains bedside. pt continues to wait for bed assignment. call davis placed within reach.
--- NOTE | 2023-08-02 16:07 | PC.NURSE ---
provider aware of pt blood pressure, no new orders at this time.
[2023-08-02] MEDS: 0.9 % Sodium Chloride 1,000 ML 999 ML IV (16:10)
[2023-08-02 16:39] LABS: Lactic Acid 0.9 mmol/L (0.5-2.0)
[2023-08-02 16:42] LABS: Anion Gap 12 (12-20); Blood Urea Nitrogen 36 mg/dL (9-16); Calcium 9.4 mg/dL (8.4-10.2); Carbon Dioxide 21 mmol/L (22-29); Chloride 107 mmol/L (96-108); Creatinine Clr Calc Pharmacy 54.3; Estimated Glomerular Filt Rate 47; Glucose Random 90 mg/dL (60-115); Potassium 4.3 mmol/L (3.3-5.1); Sodium 136 mmol/L (135-145)
[2023-08-02] MEDS: Heparin Sodium,Porcine 5,000 UNIT/ML VIAL 5000 UNIT SUBCUT (16:58)
[2023-08-02 18:07] LABS: Glucose, Whole Blood 78 mg/dL (60-115)
--- NOTE | 2023-08-02 18:43 | PC.NURSE ---
rn aware of pt blood glucose at this time. pt given juice.
[2023-08-02 19:05] LABS: Glucose, Whole Blood 83 mg/dL (60-115)
[2023-08-02 19:05] LABS: Glucose, Whole Blood 94 mg/dL (60-115)
--- NOTE | 2023-08-02 19:50 | PC.NURSE ---
this rn assumed care of pt @ 1900. pt spo2 noted to be 88% RA at 1902 pt placed on 1L NC pt recovered to 95%. written report given to becca anand pt awaiting transport to bed assignment
--- NOTE | 2023-08-02 21:01 | PC.NURSE ---
transport bringing pt up to floor bed assignment at this time
[2023-08-02 21:35] LABS: Glucose, Whole Blood 116 mg/dL (60-115)
[2023-08-03] MEDS: 0.9 % Sodium Chloride Flush 3 ML SYRINGE IVFLUSH (02:35)
[2023-08-03] MEDS: 0.9 % Sodium Chloride 1,000 ML 100 ML IVCONT ×3 (03:40→23:15)
[2023-08-03] MEDS: Piperacillin Sodium/Tazobactam 4.5 GM in 0.9 % Sodium Chloride 100 ML IV ×4 (03:40→20:58)
[2023-08-03 04:00] VITALS: RESP 16
--- NOTE | 2023-08-03 05:31 | PM.EVENT ---
Event Note Date of Service: 08/03/23 Event Note: Patient is retaing urine (bladder scan this morning 1,630 ml). Indwelling urinary catheter ordered. Time Spent With Patient Time: Total time managing care of this patient today ____ minutes.
[2023-08-03 07:11] VITALS: BP 162/66; PULSE 108; RESP 30; TEMP 36.8; O2SAT 96
[2023-08-03 07:24] LABS: Glucose, Whole Blood 123 mg/dL (60-115)
[2023-08-03] MEDS: Finasteride 5 MG TABLET PO (08:32)
[2023-08-03] MEDS: Ezetimibe 10 MG TABLET PO (08:32)
--- NOTE | 2023-08-03 08:32 | P.CNHO_ITS ---
Subjective - Subjective Chief complaint: Altered mental status Patient: known to practice within the last 3 years Consult date: 08/03/23 Primary Care Provider: Wayne Galdamez MD Medical Summary: Diagnosis: Left neck lymphadenopathy November 2022, squamous cell carcinoma. Patient presented for a routine physical in November 2022 and was noted to have swollen left neck lymph adenopathy. CT neck performed 12/08/2022 showed pathologically enlarged level 2 B lymph node in the left and a smaller left level IIB lymph node consistent with metastatic lymphadenopathy. 7 mm round enhancing focus in the left temporal lobe, MRI of brain with and without contrast was recommended. A 3.6 cm ground-glass opacity in the right upper lobe and multiple mediastinal lymph nodes with a right pleural effusion versus pleural thickening, recommend CT chest with contrast for further assessment. Asymmetric appearance of the oropharynx on the right which appears to be related to tortuosity of the right internal carotid artery. CT chest with contrast performed on 01/13/2023 showed large ill-defined mass lesion in the right lower lobe extending into the right middle lobe with adjacent consolidation. Innumerable satellite nodules seen throughout the right lower and middle lobes. Subcarinal lymph node measuring 1.7 cm. Core biopsy of left cervical node performed 12/28/2022 showed poorly differentiated squamous cell carcinoma. Molecular studies showed PDL1 CPS of 25%, TPS 20%, TMB 3.2 m/mol, MSI stable. Gigzolo 648 gene panel showed no potentially actionable or biologically relevant pathogenic variants. PET-CT performed at [place] on 01/25/2023 showed intensely hypermetabolic necrotic mass replacing right lower lobe consistent with primary lung cancer. Minimally hypermetabolic nodules in bilateral upper lobes, hypermetabolic left cervical and subcarinal lymph nodes, 1.3 cm lytic lesion at T3 suspicious for metastasis as well as left adrenal gland uptake suspicious for metastatic disease. Brain MRI performed 12/29/2022 showed heterogenously enhancing lesions involving right precentral gyrus and left posterior temporal lobe worrisome for intracranial metastatic disease. No midline shift. Lesion in the left posterior temporal lobe measuring 1 cm and 1.4 cm in the right precentral gyrus which was associated with small margin of edema. He was seen by Dr. Kathleen for radiation oncology. Repeat brain performed in March 2023 showed right precentral gyrus lesion to have decreased in size resolution of edema left lesion grew in size slightly. He started treatment on 01/29/2023, carboplatin/Taxol and pembrolizumab every 3 weeks. He finished 4 cycles of combination therapy and is now on single agent pembrolizumab as maintenance. Surveillance brain MRI performed 06/18/2023 is showing progression of brain lesions which are ranging in size from 0.5 mm to 1.5 cm. Largest in right temporal lobe, few additional lesions measuring 1.3 and 0.5 mm. In the left parietal lobe there was mild surrounding vasogenic edema. HPI - Consult Narrative Reason for consult: Metastatic lung cancer, altered mental status Narrative: William Barton is a 68 year old male with history of metastatic squamous cell carcinoma who has been on palliative chemotherapy and started recently on radiation therapy for progressive brain lesions. He presented to emergency department yesterday with confusion/altered mental status that was noted by and family yesterday morning. He had received 1 radiation treatment to his brain at [facility] on . He was supposed to go for a 2nd radiation treatment on 08/02/2022 but because of these symptoms the came to [facility] [place] by ambulance. In the emergency room he was noted to have a fever of 103.1 and he was hypotensive with blood pressure 90/52. He was pancultured and started on IV antibiotics, Zosyn. In to the he seemed to get better yesterday but this morning he is again confused and lethargic. Patient usually self catheterizes himself every 4 hours. He had a Schofield catheter placed this morning because of urinary retention. Review of Systems - Constitutional Reports as per HPI - Neurologic Denies sensory deficit PMFSH Medical History: Medical History (Last Reviewed 08/02/23 @ 12:47 by Jose Pedraza MD) Patient denies medical problems Family History: Family History (Last Reviewed 08/02/23 @ 12:47 by Jose Pedraza MD) Brother Diabetes mellitus Father Lung cancer Mother Stroke Surgical History: Surgical History (Last Reviewed 08/02/23 @ 12:47 by Jose Pedraza MD) History of tonsillectomy History of tonsillectomy Social History: Social History (Last Reviewed 08/02/23 @ 12:47 by Jose Pedraza MD) Living Situation History: Household Members: Family Housing: House Do you presently have visiting nurse or other home services: No Alcohol History: Unable to assess alcohol history related to: Unknown Alcohol History Details: 1. How often do you have a drink containing alcohol?: a. Never AUDIT-C Alcohol total score: 0 Currently Displaying Signs/Symptoms of Alcohol Withdrawal: No Tobacco History: Patient Tobacco Use Status: Former Tobacco user Tobacco use type: Cigarette Years Smoked: quit smoking 6 months ago e-Cigarette/Vaping Use: Former Use Second Hand Smoke Exposure: No Substance Use History: Use of substances other than those prescribed or required for medical reasons : No Currently Displaying Signs/Symptoms of Drug Intoxication Withdrawal: No Domestic Abuse History: Have you been hit, kicked, punched, or otherwise hurt by someone within the past year? If so, by whom?: No Do you feel safe in your current relationship?: No Current Relationship Is there a partner from a previous relationship who is making you feel unsafe now?: No Advance Directives: Advance Directives: Yes Advance Directives on File: Yes Advance Directives Date on File: 12/27/20 Homicidal Assessment: Do you have thoughts of harming others: None Do you have a plan to hurt others: No Plan Nutrition Assessment: Recently lost weight without trying: No How much weight loss: Unsure Eating poorly because of decreased appetite: No Nutrition screen score: 2 Nutrition Risks: No Nutritional Risk Occupation Assessmet: service: No Current occupational status: retired Current occupational exposures/hazards: No Home Medications and Allergies Current Medications: Current Medications Acetaminophen (Acetaminophen Supp 650 Mg Supp.Rect) 650 mg [place] Q6H PRN PRN Reason: Pain, Mild (Pain Scale 1-3) Dextrose (Dextrose 50 % 25 Gm/50 Ml Syringe) 25 gm IVPUSH Q15M PRN; Protocol PRN Reason: per Hypoglycemia Standing Ord. Docusate Sodium (Docusate Sodium 100 Mg Capsule) 100 mg PO DAILY PRN PRN Reason: Constipation Ezetimibe (Ezetimibe 10 Mg Tablet) 10 mg PO DAILY [facility] Last Admin: 08/03/23 08:32 Dose: 10 mg Finasteride (Finasteride 5 Mg Tablet) 5 mg PO DAILY [facility] Last Admin: 08/03/23 08:32 Dose: 5 mg Glucose (Glucose Gel 15 Gm Gel..Gram.) 15 gm PO Q15M PRN; Protocol PRN Reason: per Hypoglycemia Standing Ord. Piperacillin Sod/Tazobactam (Sod 4.5 gm/ Sodium Chloride) 100 mls @ 200 mls/hr IV Q6H [facility] Last Admin: 08/03/23 08:32 Dose: 200 mls/hr Sodium Chloride (Ns) 1,000 mls @ 100 mls/hr IVCONT .Q10H [facility] Last Admin: 08/03/23 03:40 Dose: 100 mls/hr Insulin Human Lispro (Insulin Lispro 100 Unit/Ml 3 Ml Vial) 0 unit SUBCUT QIDACHS [facility]; Protocol Last Admin: 08/03/23 07:55 Dose: Not Given Melatonin (Melatonin 3 Mg Tablet) 6 mg PO BEDTIME PRN PRN Reason: Insomnia Ondansetron HCl (Ondansetron Hcl 4 Mg/2 Ml Vial) 4 mg IVPUSH Q8H PRN PRN Reason: Nausea and Vomiting Sodium Chloride (0.9 % Sodium Chloride Flush 3 Ml Syringe) 3 ml IVFLUSH QSHIFT [facility] Last Admin: 08/03/23 07:59 Dose: Not Given Tamsulosin HCl (Tamsulosin Hcl 0.4 Mg Capsule) 0.4 mg PO BEDTIME [facility] Last Admin: 08/02/23 23:15 Dose: Not Given Home Medications Medication Instructions Recorded Confirmed Type ezetimibe 10 mg tablet (Zetia) 10 mg PO DAILY 12/21/22 08/02/23 History Allergies Allergy/AdvReac Type Severity Reaction Status Date / Time pollen extracts Allergy sneezing Verified 08/02/23 10:16 Physical Exam Vital signs: Vital Signs Temp 98.2 F 08/03/23 07:11 Pulse 108 H 08/03/23 07:11 Resp 30 H 08/03/23 07:11 BP 162/66 H 08/03/23 07:11 Pulse Ox 96 08/03/23 07:11 O2 Del Method Nasal Cannula 08/03/23 07:11 O2 Flow Rate 2 08/03/23 07:11 Intake & Output 08/02/23 08/03/23 08/03/23 18:59 06:59 18:59 Intake Total 3867 / 4887 1020 / 4887 Output Total 600 / 2950 2350 / 2950 Balance 3267 / 1937 -1330 / 1937 Urine Output (Average ml/kg/hr) 0.53 2.09 Intake: Intake, Oral Amount 920 / 920 Intake, IV Amount 3867 / 3967 100 / 3967 0.9 % Sodium Chloride 1,000 ml 3817 / 3817 @ 999 mls/hr IV .Q1H1M [facility] Rx#: [id number] Piperacillin Sodium/Tazobactam 50 / 50 3.375 gm In 0.9 % Sodium Chloride 50 ml @ 100 mls/hr IV ONCE ONE Rx#:[id number] Piperacillin Sodium/Tazobactam 100 / 100 4.5 gm In 0.9 % Sodium Chloride 100 ml @ 200 mls/hr IV Q6H [facility] Rx#:[id number] Output: Output, Urine Amount 750 / 750 Output, Urine Amount (Catheter) 600 / 2200 1600 / 2200 2-way Urethral 1600 / 1600 Straight 600 / 600 Other: Urine Urinal Urine Color Yellow Weight 93.9 kg Weight 93.9 kg - Constitutional Present: no acute distress, somnolent - Routine HEENT Exam Head: Present: normal inspection - Routine Respiratory Exam Present: CTAB. Absent: accessory muscle use - Routine Cardiovascular Exam Cardiovascular: Present: S1, S2 - Routine Abdominal Exam Present: soft - Routine Extremities Exam Present: pulses intact - Routine Skin Exam Present: intact - Routine Neurological Exam Present: altered mental status, moving all extremities Hem/Onc Consult Result - Labs CBC & Chem 7: 08/02/23 10:56 08/03/23 09:44 Labs: Short CBC 08/02/23 Range/Units 10:56 WBC 8.4 (4.8-10.8) X10*3/uL Hgb 14.4 (14.0-18.0) g/dl Hct 42.2 (42.0-52.0) % Plt Count 330 (160-400) X10*3/uL BMP 08/02/23 08/02/23 10:56 16:20 Sodium 137 136 Potassium 4.4 4.3 Chloride 104 107 Carbon Dioxide 21 L 21 L BUN 40 H 36 H Creatinine 1.80 H 1.47 H Calcium 10.1 D 9.4 D Liver Function 08/02/23 Range/Units 10:56 Total Bilirubin 0.7 (0.0-1.0) mg/dL AST 20 (5-37) U/L ALT 78 H (0-40) U/L Alkaline Phosphatase 166 H (39-117) U/L Albumin 3.6 (3.5-5.0) g/dL Urine 08/02/23 Range/Units 11:04 Urine Color Yellow Urine Appearance Cloudy Urine pH 5.0 (5.0-9.0) Ur Specific [place] 1.015 (1.005-1.025) Urine Protein 30 (1+) H (Neg-Trace) mg/dL Urine Glucose (UA) Negative (Negative) mg/dL Assessment and Plan Patient Active problem list reviewed?: Yes (1) Acute alteration in mental status Status: Acute Assessment and plan: 1. This is a 68-year-old male with metastatic non-small cell lung cancer diagnosed in December 2022, right lower lobe primary. He started palliative chemotherapy on 01/29/2023, carboplatin/Taxol and pembrolizumab every 3 weeks. He finished 4 cycles of combination therapy and is now on single agent pembrolizumab as maintenance. Surveillance brain MRI performed 06/18/2023 is showed progression of brain lesions ranging in size from 0.5 mm to 1.5 cm. Largest in right temporal lobe, few additional lesions measuring 1.3 and 0.5 mm. In the left parietal lobe there was mild surrounding vasogenic edema. He was started on oral dexamethasone, he started radiation therapy last week at [facility]. He now presents with altered mental status. Workup in the emergency department revealed abnormal UA with fever and hypotension, he was admitted for urosepsis. He received 1st dose of Zosyn in the emergency room at 0925 on 08/02/22, subsequent dose of Zosyn was only administered this morning at 03:40. notices increasing lethargy and confusion this morning after briefly doing better later in the day yesterday. Preliminary report of urine culture is Gram-negative rods. Blood cultures are pending. I have recommended a stat CT brain. Start dexamethasone 4 mg IV every 8 hours. Check CBC daily, continue with IV antibiotics. Thanks, will follow. - Time Spent With Patient Time Spent with Patient (in minutes): 25
[2023-08-03 10:44] LABS: Anion Gap 13 (12-20); Blood Urea Nitrogen 27 mg/dL (9-16); Calcium 9.6 mg/dL (8.4-10.2); Carbon Dioxide 21 mmol/L (22-29); Chloride 108 mmol/L (96-108); Creatinine Clr Calc Pharmacy 92.9; Estimated Glomerular Filt Rate > 60; Glucose Random 113 mg/dL (60-115); Sodium 138 mmol/L (135-145)
[2023-08-03 11:16] LABS: Glucose, Whole Blood 111 mg/dL (60-115)
--- NOTE | 2023-08-03 11:30 | PC.NURSE ---
Pts ruiz catheter present at beginning of shift draining dark yellow urine. At ~0900 pts ruiz noted to be out with balloon intact but deflated. A 16 Fr ruiz was re-inserted using sterile technique with immediate output of 700cc cloudy yellow urine. 10cc balloon inflated. Pt tolerated procedure without issues
[2023-08-03] MEDS: dexAMETHasone sod phosphate 4 MG/ML VIAL IVPUSH ×2 (12:36→18:10)
--- NOTE | 2023-08-03 12:40 | MHC.CM.PN ---
pt lives with had no services does not expect to need servies when dcd dc plan home no servies
--- NOTE | 2023-08-03 14:09 | PC.NURSE ---
Pt transferred to [facility] report given to Eduardo SOMMERS
[2023-08-03] MEDS: Omeprazole 20 MG CAPSULE.DR PO (14:34)
--- NOTE | 2023-08-03 14:48 | HO.PM.IMPN ---
Subjective Subjective Date of Service: 08/03/23 Interval History: Sepsis due to UTI,Altered mental status Review of Systems seems similar -weak but answer simple questions,folows simple commands no chest pain or sob Physical Exam Vital Signs: Vital Signs: Last Vital Signs Temp 98.2 F 08/03/23 07:11 Pulse 108 H 08/03/23 07:11 Resp 30 H 08/03/23 07:11 BP 162/66 H 08/03/23 07:11 Pulse Ox 96 08/03/23 07:11 O2 Del Method Nasal Cannula 08/03/23 07:11 O2 Flow Rate 2 08/03/23 07:11 BMI result Body Mass Index 26.6 physical exam: aox2 ,generalised weak Heent: eyes : pupil equal and reactive chest: air entry fair ,slightly diminshed at bases ,no rales or wheezing heart:rrr,[id number] neuro: aox2 ,moves allext,limited exam due to less participation. Objective Data Active Medications Acetaminophen (Acetaminophen Supp 650 Mg Supp.Rect) 650 mg [place] Q6H PRN PRN Reason: Pain, Mild (Pain Scale 1-3) Dexamethasone Sodium Phosphate (Dexamethasone Sod Phosphate 4 Mg/Ml Vial) 4 mg IVPUSH Q6H [facility] Last Admin: 08/03/23 12:36 Dose: 4 mg Documented By: ESTEE Dextrose (Dextrose 50 % 25 Gm/50 Ml Syringe) 25 gm IVPUSH Q15M PRN; Protocol PRN Reason: per Hypoglycemia Standing Ord. Docusate Sodium (Docusate Sodium 100 Mg Capsule) 100 mg PO DAILY PRN PRN Reason: Constipation Ezetimibe (Ezetimibe 10 Mg Tablet) 10 mg PO DAILY [facility] Last Admin: 08/03/23 08:32 Dose: 10 mg Documented By: ESTEE Finasteride (Finasteride 5 Mg Tablet) 5 mg PO DAILY [facility] Last Admin: 08/03/23 08:32 Dose: 5 mg Documented By: ESTEE Glucose (Glucose Gel 15 Gm Gel..Gram.) 15 gm PO Q15M PRN; Protocol PRN Reason: per Hypoglycemia Standing Ord. Piperacillin Sod/Tazobactam (Sod 4.5 gm/ Sodium Chloride) 100 mls @ 200 mls/hr IV Q6H [facility] Last Admin: 08/03/23 14:32 Dose: 200 mls/hr Documented By: CHRISTOPHER Sodium Chloride (Ns) 1,000 mls @ 100 mls/hr IVCONT .Q10H [facility] Last Admin: 08/03/23 12:37 Dose: 100 mls/hr Documented By: ESTEE Insulin Human Lispro (Insulin Lispro 100 Unit/Ml 3 Ml Vial) 0 unit SUBCUT QIDACHS [facility]; Protocol Last Admin: 08/03/23 11:37 Dose: Not Given Documented By: ESTEE Non-Admin Reason: No Insulin Coverage Melatonin (Melatonin 3 Mg Tablet) 6 mg PO BEDTIME PRN PRN Reason: Insomnia Omeprazole (Omeprazole 20 Mg Capsule.Dr) 20 mg PO DAILY@0630 [facility] Last Admin: 08/03/23 14:34 Dose: 20 mg Documented By: CHRISTOPHER Ondansetron HCl (Ondansetron Hcl 4 Mg/2 Ml Vial) 4 mg IVPUSH Q8H PRN PRN Reason: Nausea and Vomiting Sodium Chloride (0.9 % Sodium Chloride Flush 3 Ml Syringe) 3 ml IVFLUSH QSHIFT [facility] Last Admin: 08/03/23 07:59 Dose: Not Given Documented By: ESTEE Non-Admin Reason: IV Running Tamsulosin HCl (Tamsulosin Hcl 0.4 Mg Capsule) 0.4 mg PO BEDTIME [facility] Last Admin: 08/02/23 23:15 Dose: Not Given Documented By: INA Non-Admin Reason: Patient Refused Labs 08/02/23 10:56 08/03/23 09:44 Labs: Laboratory Results - last 24 hr 08/02/23 08/02/23 08/02/23 16:02 16:20 18:03 Anion Gap 12 Estim Creat Clear Calc 54.3 Estimated GFR 47 POC Glucose 94 78 Random Glucose 90 Lactic Acid 0.9 Calcium 9.4 D 08/02/23 08/02/23 08/03/23 18:37 21:30 07:18 Anion Gap Estim Creat Clear Calc Estimated GFR POC Glucose 83 116 H 123 H Random Glucose Lactic Acid Calcium 08/03/23 08/03/23 09:44 11:10 Anion Gap 13 Estim Creat Clear Calc 92.9 Estimated GFR > 60 POC Glucose 111 Random Glucose 113 Lactic Acid Calcium 9.6 Microbiology Microbiology Results: Microbiology 08/02/23 10:56 Blood Culture - Preliminary Blood - Venous No growth after 24 hours. 08/02/23 10:55 Blood Culture - Preliminary Blood - Venous No growth after 24 hours. 08/02/23 Unknown Urine Culture - Preliminary Urine clean catch - Urine gonsalez top Gram negative anne Assessment and Plan (1) Sepsis: Status: Acute (2) Acute alteration in mental status: Status: Acute (3) Fever: Status: Acute Plan Hospital day-1 68 yo M with PMHx of non-small cell lung cancer (treated with chemo) with metastases to the brain (treated with radiation), non-insulin dependent diabetes, HLD, and BPH, presented to the ED today with his via EMS after he had weakness, difficulty ambulating, and incoherent speech this morning being admitted for the management of sepsis in the setting of acute UTI. Sepsis due to UTI and PNA Urine culture :gram neg anne and blood cultures pending continue zosyn day Metabolic encephalopathy--d/t UTI, Abx as above, but has mets also, last MRI was 3 weeks ago [facility], iggyering toxic metabolic encephalopathy-added ct head: right sided metastatic area -edema ,no shift seen and d/w oncology. recomeneded: iv dexamethsone 4 mg q6hr,neurochecks ,we will also add neurology eval. ANJU--possibly due to low volume status from vomiting/decreased PO intake, got IVF, has ruiz ,improving Elevated d-dimer--thought to be likely due to active malignancy treated with chemo/radiation, no complaint of chest pain or shortness breath Non-SCLC with mets to brain on Keytruda - Follow with Dr. Bourne Non-insulin dependent DM controlled with diet - Diebetic diet and SSI HLD - Continue home ezetimibe BPH - Continue home finasteride - Continue home tamsulosin -- hold if BP <90/60 DVT prophylaxis: Heparin Full code ongoing hospitlisation need : management and monitoring of sepsis due to UTI not otherwise feasible in a less acute setting-need iv antibiotics ,also metabolic enecpehlapthy-(multifactorial -uti,decreased po intake ,also might brain met with edema contributing). Quality Stroke Does the patient have a stroke diagnosis?: No VTE Prior VTE?: No VTE Risk Level:: Medical - moderate - high VTE Device Contraindication: Treatment Not Indicated VTE Drug Contraindication: N/A - Med Ordered
[2023-08-03 15:01] VITALS: BP 137/65; PULSE 104; RESP 20; TEMP 36.2; O2SAT 93
[2023-08-03 16:09] LABS: Glucose, Whole Blood 220 mg/dL (60-115)
[2023-08-03] MEDS: Insulin Lispro 100 UNIT/ML 3 ML VIAL SUBCUT ×2 (17:39→20:58)
--- NOTE | 2023-08-03 18:09 | P.CNNE_ITS ---
History of Present Illness Data of Consult Service Date: 08/03/23 Primary Care Provider: Wayne Galdamez MD HPI Reason for consult: altered mental status, Brain mets This 68 yo male with h/o non-small cell lung cancer (treated with chemo - Keytruda) with left temporal and right parietal metastases to the [place] [facility] [place] therapy was to be Friday 08/04 and Sunday 08/06; h/o non-insulin dependent diabetes, HLD, and BPH, presented to the ED after he had weakness, difficulty ambulating, and incoherent speech this morning. His states that patient has been feeling poorly since first radiation treatment for brain mets on 07/29/22 and has had fatigue and poor oral intake and occasional vomiting since then. However, she states that his condition was acutely worse this morning when she was trying to get him ready for his next radiation appointment. In ED he was found to have a UTI with UA positive for WBC, bacteria, leukocyte esterase, blood, and protein. CXR showed infiltrate/atelectasis/scarring at the right lung base (this is in the region of the previously seen large lobular mass at the right lung base seen on the 01/14/2023 CT scan). D-Dimer 548 (in the setting of active malignancy and chemo/radiation) Creatinine was elevated at 1.8 (prev 1.2) and BUN 40 (prev 25), ALT 78, alk phos 166. ECG, CBC, and URI viral panel were noncontributory. He was septic temperature of 103.1 and tachycardia at 131 and received Zosyn, acetaminophen, and IVF. BP is soft at 97/55. He will be admitted for further management and treatment of sepsis due to UTI. Review of Systems 2 Review of Systems: seems similar -weak but answer simple questions,folows simple commands no chest pain or sob Yes all other systems are reviewed and are negative and Unobtainable due to mental status Constitutional: Constitutional: Reports as per HPI Neurologic: Denies Sensory deficit (Neuro) [facility] Past Medical History Medical History Patient denies medical problems Family History Family History Brother Diabetes mellitus Father Lung cancer Mother Stroke Surgical History Surgical History History of tonsillectomy History of tonsillectomy Social History Social History Household Members: Family Housing: House Do you presently have visiting nurse or other home services: No Unable to assess alcohol history related to: Unknown Alcohol intake: never Patient Tobacco Use Status: Former Tobacco user Tobacco use type: Cigarette Years Smoked: quit smoking 6 months ago e-Cigarette/Vaping Use: Former Use Second Hand Smoke Exposure: No Use of substances other than those prescribed or required for medical reasons: No Currently Displaying Signs/Symptoms of Drug Intoxication Withdrawal: No Have you been hit, kicked, punched, or otherwise hurt by someone within the past year? If so, by whom?: No Do you feel safe in your current relationship?: No Current Relationship Is there a partner from a previous relationship who is making you feel unsafe now?: No Advance Directives: Yes Advance Directives on File: Yes Advance Directives Date on File: 12/27/20 Do you have thoughts of harming others: None Do you have a plan to hurt others: No Plan Recently lost weight without trying: No How much weight loss: Unsure Eating poorly because of decreased appetite: No Nutrition screen score: 2 Nutrition Risks: No Nutritional Risk service: No Current occupational status: retired Current occupational exposures/hazards: No Cognitive needs: No Hearing needs: No Vision needs: Yes (Glasses) Meds Allergies Allergy/AdvReac Type Severity Reaction Status Date / Time pollen extracts Allergy sneezing Verified 08/02/23 10:16 Active Medications: Current Medications Acetaminophen (Acetaminophen Supp 650 Mg Supp.Rect) 650 mg MA Q6H PRN PRN Reason: Pain, Mild (Pain Scale 1-3) Dexamethasone Sodium Phosphate (Dexamethasone Sod Phosphate 4 Mg/Ml Vial) 4 mg IVPUSH Q6H URI Last Admin: 08/03/23 12:36 Dose: 4 mg Dextrose (Dextrose 50 % 25 Gm/50 Ml Syringe) 25 gm IVPUSH Q15M PRN; Protocol PRN Reason: per Hypoglycemia Standing Ord. Docusate Sodium (Docusate Sodium 100 Mg Capsule) 100 mg PO DAILY PRN PRN Reason: Constipation Ezetimibe (Ezetimibe 10 Mg Tablet) 10 mg PO DAILY [facility] Last Admin: 08/03/23 08:32 Dose: 10 mg Finasteride (Finasteride 5 Mg Tablet) 5 mg PO DAILY [facility] Last Admin: 08/03/23 08:32 Dose: 5 mg Glucose (Glucose Gel 15 Gm Gel..Gram.) 15 gm PO Q15M PRN; Protocol PRN Reason: per Hypoglycemia Standing Ord. Heparin Sodium (Porcine) (Heparin Sodium,Porcine 5,000 Unit/Ml Vial) 5,000 unit SUBCUT Q8H [facility] Piperacillin Sod/Tazobactam (Sod 4.5 gm/ Sodium Chloride) 100 mls @ 200 mls/hr IV Q6H [facility] Last Infusion: 08/03/23 16:25 Dose: Infused Sodium Chloride (Ns) 1,000 mls @ 100 mls/hr IVCONT .Q10H [facility] Last Admin: 08/03/23 12:37 Dose: 100 mls/hr Insulin Human Lispro (Insulin Lispro 100 Unit/Ml 3 Ml Vial) 0 unit SUBCUT QIDACHS [facility]; Protocol Last Admin: 08/03/23 17:39 Dose: 4 unit Melatonin (Melatonin 3 Mg Tablet) 6 mg PO BEDTIME PRN PRN Reason: Insomnia Omeprazole (Omeprazole 20 Mg Capsule.Dr) 20 mg PO DAILY@0630 [facility] Last Admin: 08/03/23 14:34 Dose: 20 mg Ondansetron HCl (Ondansetron Hcl 4 Mg/2 Ml Vial) 4 mg IVPUSH Q8H PRN PRN Reason: Nausea and Vomiting Sodium Chloride (0.9 % Sodium Chloride Flush 3 Ml Syringe) 3 ml IVFLUSH QSHIFT [facility] Last Admin: 08/03/23 16:21 Dose: Not Given Tamsulosin HCl (Tamsulosin Hcl 0.4 Mg Capsule) 0.4 mg PO BEDTIME [facility] Last Admin: 08/02/23 23:15 Dose: Not Given Home Medications Medication Instructions Recorded Confirmed Last Taken Type ezetimibe 10 mg tablet (Zetia) 10 mg PO DAILY 12/21/22 08/02/23 Unknown History Physical Exam 2 Vital Signs: Vital Signs: Last Vital Signs Temp 97.1 F 08/03/23 15:01 Pulse 104 H 08/03/23 15:01 Resp 20 08/03/23 15:01 BP 137/65 08/03/23 15:01 Pulse Ox 93 01/23/24 15:01 O2 Del Method Room Air 08/03/23 15:01 O2 Flow Rate 2 08/03/23 07:11 BMI result Body Mass Index 26.6 Const: Other: Ill appearing male short of breath, confused Orientation/consciousness: oriented to person Limitations: altered mental status HEENT: Head: Yes normal to inspection Ears: external ears normal General nose exam: Normal external nose present Mouth: Normal oral and palatal mucosa present and oropharynx normal Throat: Yes posterior oropharynx normal Eyes: General: appearance normal, both eyes and all related structures Neck: Other: supple Neck: Yes normal visual inspection Chest: Chest palpation & inspection: normal inspection of the chest Resp: Auscultation: clear to auscultation bilaterally Cardio: Other: tachycardia Jugular venous distension: no JVD GI: Inspection: Yes normal to inspection Palpation (GI): Soft to palpation, nontender and No hepatosplenomegaly present Auscultation: normal bowel sounds : General: Yes no CVA tenderness Back/Spine/Pelvis: Back: no CVA tenderness Skin: General skin exam: no rashes or lesions noted Neuro: Other: He is alert and oriented to person, place and month and year but not to day and date. He follows commands and is cooperative. He denies any complaints of headache or dizziness her generalized weakness. His cranial nerves II through XII are normal. There is no facial asymmetry. Tongue protrudes in the midline. His speech is clear. He moves all 4 extremities against gravity with normal strength. Plantar response are flexor. Neck is supple. General: oriented to person Cranial nerves: Yes CN's II-XII intact bilaterally Sensory Exam: No Sensory deficit (Neuro) Extrem: General: Yes normal to inspection Psych: Appearance: grossly normal Results Labs 08/02/23 10:56 08/03/23 09:44 Labs: BMP 08/03/23 09:44 Sodium 138 Potassium 4.0 Chloride 108 Carbon Dioxide 21 L BUN 27 H Creatinine 0.86 Calcium 9.6 Microbiology Microbiology Results: Microbiology 08/02/23 10:56 Blood - Venous Blood Culture - Preliminary No growth after 24 hours. 08/02/23 10:55 Blood - Venous Blood Culture - Preliminary No growth after 24 hours. 08/02/23 Unknown Urine clean catch - Urine gonsalez top Urine Culture - Preliminary Gram negative anne Assessment and Plan (1) Acute alteration in mental status: Status: Acute His altered mental status appears to be due to infectious etiology. There is a small area of hemorrhage in his left temporal metastases, but the mass effect has not increased. There is mmild to moderate edema around the lesion. There is slight increase in edema over the right parietal metastatic lesion, but no major mass effect. Recommendations treat infectious etiology. Decadron 4 mg 4 times a day. The new radiation treatments when possible.The small intralesional hemorrhage is not a significant factor. A followup CT scan can be done as an outpatient in 2 weeks (2) Sepsis: Status: Acute (3) Fever: Status: Acute Plan Hospital day-1 68 yo M with PMHx of non-small cell lung cancer (treated with chemo) with metastases to the brain (treated with radiation), non-insulin dependent diabetes, HLD, and BPH, presented to the ED today with his via EMS after he had weakness, difficulty ambulating, and incoherent speech this morning being admitted for the management of sepsis in the setting of acute UTI. Sepsis due to UTI and PNA Urine culture :gram neg anne and blood cultures pending continue zosyn day1 Metabolic encephalopathy--d/t UTI, Abx as above, but has mets also, last MRI was 3 weeks ago [facility], luisana toxic metabolic encephalopathy-added ct head: right sided metastatic area -edema ,no shift seen and d/w oncology. recomeneded: iv dexamethsone 4 mg q6hr,neurochecks ,we will also add neurology eval. ANJU--possibly due to low volume status from vomiting/decreased PO intake, got IVF, has ruiz ,improving Elevated d-dimer--thought to be likely due to active malignancy treated with chemo/radiation, no complaint of chest pain or shortness breath Non-SCLC with mets to brain on Keytruda - Follow with Dr. Bourne Non-insulin dependent DM controlled with diet - Diebetic diet and SSI HLD - Continue home ezetimibe BPH - Continue home finasteride - Continue home tamsulosin -- hold if BP <90/60 DVT prophylaxis: Heparin Full code ongoing hospitlisation need : management and monitoring of sepsis due to UTI not otherwise feasible in a less acute setting-need iv antibiotics ,also metabolic enecpehlapthy-(multifactorial -uti,decreased po intake ,also might brain met with edema contributing). Procedures Date of Service Date of Service: 08/03/23
[2023-08-03] MEDS: Heparin Sodium,Porcine 5,000 UNIT/ML VIAL 5000 UNIT SUBCUT (18:10)
[2023-08-03 19:17] LABS: Glucose, Whole Blood 216 mg/dL (60-115)
[2023-08-03 19:52] VITALS: BP 128/62; PULSE 85; RESP 19; TEMP 35.7; O2SAT 90
[2023-08-03] MEDS: Tamsulosin HCL 0.4 MG CAPSULE PO (20:58)
[2023-08-04 00:06] VITALS: BP 139/70; PULSE 73; RESP 20; TEMP 36.1; O2SAT 93
[2023-08-04] MEDS: 0.9 % Sodium Chloride Flush 3 ML SYRINGE IVFLUSH ×2 (00:33→15:21)
[2023-08-04] MEDS: dexAMETHasone sod phosphate 4 MG/ML VIAL IVPUSH ×5 (00:33→22:58)
[2023-08-04] MEDS: Heparin Sodium,Porcine 5,000 UNIT/ML VIAL 5000 UNIT SUBCUT (02:36)
[2023-08-04] MEDS: Piperacillin Sodium/Tazobactam 4.5 GM in 0.9 % Sodium Chloride 100 ML IV ×4 (02:37→20:55)
[2023-08-04 04:00] VITALS: BP 135/70; PULSE 73; RESP 19; TEMP 36.3; O2SAT 94
[2023-08-04] MEDS: Omeprazole 20 MG CAPSULE.DR PO (05:36)
[2023-08-04] MEDS: 0.9 % Sodium Chloride 1,000 ML 100 ML IVCONT ×2 (05:36→20:55)
[2023-08-04 07:06] VITALS: BP 128/66; PULSE 80; RESP 20; TEMP 37.2; O2SAT 94
[2023-08-04 07:08] LABS: Glucose, Whole Blood 167 mg/dL (60-115)
[2023-08-04] MEDS: Insulin Lispro 100 UNIT/ML 3 ML VIAL SUBCUT ×4 (07:39→22:16)
[2023-08-04] MEDS: Finasteride 5 MG TABLET PO (07:40)
[2023-08-04] MEDS: Ezetimibe 10 MG TABLET PO (07:40)
--- NOTE | 2023-08-04 08:13 | PM.HEMONCPN ---
Medical Summary - Medical Summary Date of Service: 08/04/23 Chief complaint: Altered mental status Primary Care Provider: Wayne Galdamez MD Medical Summary: Diagnosis: Left neck lymphadenopathy November 2022, squamous cell carcinoma. Patient presented for a routine physical in November 2022 and was noted to have swollen left neck lymph adenopathy. CT neck performed 12/08/2022 showed pathologically enlarged level 2 B lymph node in the left and a smaller left level IIB lymph node consistent with metastatic lymphadenopathy. 7 mm round enhancing focus in the left temporal lobe, MRI of brain with and without contrast was recommended. A 3.6 cm ground-glass opacity in the right upper lobe and multiple mediastinal lymph nodes with a right pleural effusion versus pleural thickening, recommend CT chest with contrast for further assessment. Asymmetric appearance of the oropharynx on the right which appears to be related to tortuosity of the right internal carotid artery. CT chest with contrast performed on 01/13/2023 showed large ill-defined mass lesion in the right lower lobe extending into the right middle lobe with adjacent consolidation. Innumerable satellite nodules seen throughout the right lower and middle lobes. Subcarinal lymph node measuring 1.7 cm. Core biopsy of left cervical node performed 12/28/2022 showed poorly differentiated squamous cell carcinoma. Molecular studies showed PDL1 CPS of 25%, TPS 20%, TMB 3.2 m/mol, MSI stable. Picateers 648 gene panel showed no potentially actionable or biologically relevant pathogenic variants. PET-CT performed at [facility] on 01/25/2023 showed intensely hypermetabolic necrotic mass replacing right lower lobe consistent with primary lung cancer. Minimally hypermetabolic nodules in bilateral upper lobes, hypermetabolic left cervical and subcarinal lymph nodes, 1.3 cm lytic lesion at T3 suspicious for metastasis as well as left adrenal gland uptake suspicious for metastatic disease. Brain MRI performed 12/29/2022 showed heterogenously enhancing lesions involving right precentral gyrus and left posterior temporal lobe worrisome for intracranial metastatic disease. No midline shift. Lesion in the left posterior temporal lobe measuring 1 cm and 1.4 cm in the right precentral gyrus which was associated with small margin of edema. He was seen by Dr. Kathleen for radiation oncology. Repeat brain performed in March 2023 showed right precentral gyrus lesion to have decreased in size resolution of edema left lesion grew in size slightly. He started treatment on 01/29/2023, carboplatin/Taxol and pembrolizumab every 3 weeks. He finished 4 cycles of combination therapy and is now on single agent pembrolizumab as maintenance. Surveillance brain MRI performed 06/18/2023 is showing progression of brain lesions which are ranging in size from 0.5 mm to 1.5 cm. Largest in right temporal lobe, few additional lesions measuring 1.3 and 0.5 mm. In the left parietal lobe there was mild surrounding vasogenic edema. Interval History Interval history: Patient is feeling better and is now more alert and oriented. He is answering questions appropriately. No slurring of speech noted. was at bedside was also noticed improvement. He denies abdominal discomfort, headache or dizziness. No fever or chills. Review of Systems - Neurologic Denies sensory deficit PMFSH Medical History: Medical History (Last Reviewed 08/02/23 @ 12:47 by Jose Pedraza MD) Patient denies medical problems Family History: Family History (Last Reviewed 08/02/23 @ 12:47 by Jose Pedraza MD) Brother Diabetes mellitus Father Lung cancer Mother Stroke Surgical History: Surgical History (Last Reviewed 08/02/23 @ 12:47 by Jose Pedraza MD) History of tonsillectomy History of tonsillectomy Social History: Social History (Last Reviewed 08/02/23 @ 12:47 by Jose Pedraza MD) Living Situation History: Household Members: Family Housing: House Do you presently have visiting nurse or other home services: No Alcohol History: Unable to assess alcohol history related to: Unknown Alcohol History Details: 1. How often do you have a drink containing alcohol?: a. Never AUDIT-C Alcohol total score: 0 Currently Displaying Signs/Symptoms of Alcohol Withdrawal: No Tobacco History: Patient Tobacco Use Status: Former Tobacco user Tobacco use type: Cigarette Years Smoked: quit smoking 6 months ago e-Cigarette/Vaping Use: Former Use Second Hand Smoke Exposure: No Substance Use History: Use of substances other than those prescribed or required for medical reasons: No Currently Displaying Signs/Symptoms of Drug Intoxication Withdrawal: No Domestic Abuse History: Have you been hit, kicked, punched, or otherwise hurt by someone within the past year? If so, by whom?: No Do you feel safe in your current relationship?: No Current Relationship Is there a partner from a previous relationship who is making you feel unsafe now?: No Advance Directives: Advance Directives: Yes Advance Directives on File: Yes Advance Directives Date on File: 12/27/20 Homicidal Assessment: Do you have thoughts of harming others: None Do you have a plan to hurt others: No Plan Nutrition Assessment: Recently lost weight without trying: No How much weight loss: Unsure Eating poorly because of decreased appetite: No Nutrition screen score: 2 Nutrition Risks: No Nutritional Risk Occupation Assessmet: service: No Current occupational status: retired Current occupational exposures/hazards: No Home Medications and Allergies Current Medications: Current Medications Acetaminophen (Acetaminophen Supp 650 Mg Supp.Rect) 650 mg [place] Q6H PRN PRN Reason: Pain, Mild (Pain Scale 1-3) Dexamethasone Sodium Phosphate (Dexamethasone Sod Phosphate 4 Mg/Ml Vial) 4 mg IVPUSH Q6H [facility] Last Admin: 08/04/23 05:36 Dose: 4 mg Dextrose (Dextrose 50 % 25 Gm/50 Ml Syringe) 25 gm IVPUSH Q15M PRN; Protocol PRN Reason: per Hypoglycemia Standing Ord. Docusate Sodium (Docusate Sodium 100 Mg Capsule) 100 mg PO DAILY PRN PRN Reason: Constipation Ezetimibe (Ezetimibe 10 Mg Tablet) 10 mg PO DAILY [facility] Last Admin: 08/04/23 07:40 Dose: 10 mg Finasteride (Finasteride 5 Mg Tablet) 5 mg PO DAILY [facility] Last Admin: 08/04/23 07:40 Dose: 5 mg Glucose (Glucose Gel 15 Gm Gel..Gram.) 15 gm PO Q15M PRN; Protocol PRN Reason: per Hypoglycemia Standing Ord. Heparin Sodium (Porcine) (Heparin Sodium,Porcine 5,000 Unit/Ml Vial) 5,000 unit SUBCUT Q8H [facility] Last Admin: 08/04/23 02:36 Dose: 5,000 unit Piperacillin Sod/Tazobactam (Sod 4.5 gm/ Sodium Chloride) 100 mls @ 200 mls/hr IV Q6H [facility] Last Admin: 08/04/23 07:39 Dose: 200 mls/hr Sodium Chloride (Ns) 1,000 mls @ 100 mls/hr IVCONT .Q10H [facility] Last Admin: 08/04/23 05:36 Dose: 100 mls/hr Insulin Human Lispro (Insulin Lispro 100 Unit/Ml 3 Ml Vial) 0 unit SUBCUT QIDACHS [facility]; Protocol Last Admin: 08/04/23 07:39 Dose: 2 unit Melatonin (Melatonin 3 Mg Tablet) 6 mg PO BEDTIME PRN PRN Reason: Insomnia Omeprazole (Omeprazole 20 Mg Capsule.Dr) 20 mg PO DAILY@0630 [facility] Last Admin: 08/04/23 05:36 Dose: 20 mg Ondansetron HCl (Ondansetron Hcl 4 Mg/2 Ml Vial) 4 mg IVPUSH Q8H PRN PRN Reason: Nausea and Vomiting Sodium Chloride (0.9 % Sodium Chloride Flush 3 Ml Syringe) 3 ml IVFLUSH QSHIFT [facility] Last Admin: 08/04/23 07:40 Dose: Not Given Tamsulosin HCl (Tamsulosin Hcl 0.4 Mg Capsule) 0.4 mg PO BEDTIME [facility] Last Admin: 08/03/23 20:58 Dose: 0.4 mg Home Medications Medication Instructions Recorded Confirmed Type ezetimibe 10 mg tablet (Zetia) 10 mg PO DAILY 12/21/22 08/02/23 History Allergies Allergy/AdvReac Type Severity Reaction Status Date / Time pollen extracts Allergy sneezing Verified 08/02/23 10:16 Exam Vital signs: Vital Signs Temp 99.0 F 08/04/23 07:06 Pulse 80 08/04/23 07:06 Resp 20 08/04/23 07:06 BP 128/66 08/04/23 07:06 Pulse Ox 94 08/04/23 07:06 O2 Del Method Nasal Cannula 08/04/23 07:06 O2 Flow Rate 1 08/04/23 07:06 Intake & Output 08/03/23 08/04/23 08/04/23 18:59 06:59 18:59 Intake Total 1335 / 3170 1835 / 3170 Output Total 900 / 900 Balance 1335 / 2270 935 / 2270 Urine Output (Average ml/kg/hr) 0.80 Intake: Intake, Oral Amount 240 / 240 Intake, IV Amount 1095 / 2930 1835 / 2930 Piperacillin Sodium/Tazobactam 200 / 400 200 / 400 4.5 gm In 0.9 % Sodium Chloride 100 ml @ 200 mls/hr IV Q6H [facility] Rx#:[id number] 0.9 % Sodium Chloride 1,000 ml 895 / 2530 1635 / 2530 @ 100 mls/hr IVCONT .Q10H [facility] Rx#:[id number] Output: Output, Urine Amount 900 / 900 Other: Meal Refused No NPO No Breakfast % Eaten 0% Lunch % Eaten 25% Number of Incontinent Voids 1 Urine Color Concentrated Continuous Bladder Irrigation Fluid - Amount Drained 2-way Urethral 1,800 Weight 93.9 kg BMI result Body Mass Index 26.6 - Constitutional Present: no acute distress, somnolent - Routine HEENT Exam Head: Present: normal inspection - Routine Respiratory Exam Present: CTAB. Absent: accessory muscle use - Routine Cardiovascular Exam Cardiovascular: Present: S1, S2 - Routine Abdominal Exam Present: soft - Routine Extremities Exam Present: pulses intact - Routine Skin Exam Present: intact - Routine Neurological Exam Present: altered mental status, moving all extremities - Detailed Neurological Exam: Coma Scale Eye Opening: Spontaneous (4) Data - Labs CBC & Chem 7: 08/02/23 10:56 08/03/23 09:44 Labs: Laboratory Last Values WBC 8.4 X10*3/uL (4.8-10.8) 08/02/23 10:56 RBC 4.87 X10*6/uL (4.60-5.80) 08/02/23 10:56 Hgb 14.4 g/dl (14.0-18.0) 08/02/23 10:56 Hct 42.2 % (42.0-52.0) 08/02/23 10:56 MCV 86.7 fL (80.0-98.0) 08/02/23 10:56 MCH 29.6 pg (27.0-33.0) 08/02/23 10:56 MCHC 34.1 g/dl (31.0-36.0) 08/02/23 10:56 RDW 15.5 % (11.0-16.0) 08/02/23 10:56 Plt Count 330 X10*3/uL (160-400) 08/02/23 10:56 MPV 8.6 fL (9.4-12.4) L 08/02/23 10:56 Immature Gran % (Auto) 2.4 % (0.0-0.4) H 08/02/23 10:56 Neut % (Auto) 73.5 % (45-73) H 08/02/23 10:56 Lymph % (Auto) 11.7 % (20-40) L 08/02/23 10:56 Roberts % (Auto) 9.6 % (2-11) 08/02/23 10:56 Eos % (Auto) 2.4 % (0-4) 08/02/23 10:56 Baso % (Auto) 0.4 % (0-2) 08/02/23 10:56 Lymph # (Auto) 1.0 X10*3/uL (1.2-4.9) L 08/02/23 10:56 Roberts # (Auto) 0.8 X10*3/uL (0.1-1.2) 08/02/23 10:56 Eos # (Auto) 0.2 X10*3/uL (0.0-0.4) 08/02/23 10:56 Baso # (Auto) 0.0 X10*3/uL (0.0-0.2) 08/02/23 10:56 Abs Immat Gran (auto) 0.20 X10*3/uL (0.00-0.03) H 08/02/23 10:56 Absolute Neuts (auto) 6.2 x10*3/uL (2.0-8.3) 08/02/23 10:56 Absolute Nucleated RBC 0.000 X10*3/uL (0.0-0.012) 08/02/23 10:56 Nucleated RBC % (auto) 0.0 /100WBC (0.0-0.2) 08/02/23 10:56 D-Dimer High Sensitivty 548 NG/ML 08/02/23 10:55 Sodium 138 mmol/L (135-145) 08/03/23 09:44 Potassium 4.0 mmol/L (3.3-5.1) 08/03/23 09:44 Chloride 108 mmol/L (96-108) 08/03/23 09:44 Carbon Dioxide 21 mmol/L (22-29) L 08/03/23 09:44 Anion Gap 13 (12-20) 08/03/23 09:44 BUN 27 mg/dL (9-16) H 08/03/23 09:44 Creatinine 0.86 mg/dL (0.5-1.4) 08/03/23 09:44 Estim Creat Clear Calc 92.9 08/03/23 09:44 Estimated GFR > 60 08/03/23 09:44 POC Glucose 167 mg/dL (60-115) H 08/04/23 07:04 Random Glucose 113 mg/dL (60-115) 08/03/23 09:44 Lactic Acid 0.9 mmol/L (0.5-2.0) 08/02/23 16:20 Calcium 9.6 mg/dL (8.4-10.2) 08/03/23 09:44 Total Bilirubin 0.7 mg/dL (0.0-1.0) 08/02/23 10:56 AST 20 U/L (5-37) 08/02/23 10:56 ALT 78 U/L (0-40) H 08/02/23 10:56 Alkaline Phosphatase 166 U/L (39-117) H 08/02/23 10:56 Troponin I High Sens 10.8 ng/L (<3.5-35.0) 08/02/23 10:56 Total Protein 7.6 g/dL (6.5-8.0) 08/02/23 10:56 Albumin 3.6 g/dL (3.5-5.0) 08/02/23 10:56 Urine Color Yellow 08/02/23 11:04 Urine Appearance Cloudy 08/02/23 11:04 Urine pH 5.0 (5.0-9.0) 08/02/23 11:04 Ur Specific [place] 1.015 (1.005-1.025) 08/02/23 11:04 Urine Protein 30 (1+) mg/dL (Neg-Trace) H 08/02/23 11:04 Urine Glucose (UA) Negative mg/dL (Negative) 08/02/23 11:04 Urine Ketones Trace mg/dL (Negative) 08/02/23 11:04 Urine Blood Trace (Negative) H 08/02/23 11:04 Urine Nitrite Negative (Negative) 08/02/23 11:04 Ur Leukocyte Esterase Moderate (2+) (Negative) H 08/02/23 11:04 Urine RBC 0-2 /HPF (0-2) 08/02/23 11:04 Urine WBC 21-50 /HPF (0-5) H 08/02/23 11:04 Ur Squamous Epith Cells 6-10 /HPF (0-2) 08/02/23 11:04 Urine Bacteria 4+ (None Seen) 08/02/23 11:04 Hyaline Casts 3-5 /LPF (0-2) 08/02/23 11:04 COVID-19 (SUMEET) Negative (Negative) 08/02/23 10:56 COVID-19 Clin Com See Note 08/02/23 10:56 Influenza Type A (SKYLA) Negative (Negative) 08/02/23 10:56 Influenza Type B (SKYLA) Negative (Negative) 08/02/23 10:56 Influenza A & B Note See Note 08/02/23 10:56 - Imaging Radiologist's impression: ITS Impressions Chest X-Ray 08/02/23 11:13 IMPRESSION: Right lower lobe infiltrate/atelectasis/scarring. Venous Duplex 08/03/23 09:11 IMPRESSION: No DVT demonstrated in either lower extremity. Head CT 08/03/23 11:45 IMPRESSION: There is hyperdensity associated with the dominant intracranial metastasis involving the left posterior temporal lobe that may represent a manifestation of intralesional hemorrhage. There is also increasing expansile hypoattenuation that most likely represents edema surrounding a metastasis involving the right precentral gyrus. No substantial intracranial mass effect. No midline shift or hydrocephalus. Assessment and Plan Patient Active problem list reviewed?: Yes (1) Acute alteration in mental status Status: Acute Assessment and plan: 1. This is a 68-year-old male with metastatic non-small cell lung cancer diagnosed in December 2022, right lower lobe primary. He started palliative chemotherapy on 01/29/2023, carboplatin/Taxol and pembrolizumab every 3 weeks. He finished 4 cycles of combination therapy and is now on single agent pembrolizumab as maintenance. He was admitted for altered mental status probably related to urosepsis. Urine culture grew E coli which is pansensitive. He is on Zosyn. Overall his mental status has improved now. 2. Brain metastasis. CT head performed 08/03/2022 showed dominant intracranial metastasis in the left posterior temporal lobe as well as some edema involving right precentral gyrus. No midline shift or substantial mass effect. He has been started on Decadron 4 mg IV q.6. He should be gradually tapered down to 4 mg p.o. t.i.d.. I discussed his case with Dr. Stanley from [facility]. He is scheduled to receive his 2nd stereotactic radiation therapy this Wednesday. He will also review the CT scan that was just performed at [facility]. If he remains afebrile, he can be switched to oral antibiotics and discharge tomorrow. Thank you. - Time Spent With Patient Time Spent with Patient (in minutes): 15
--- NOTE | 2023-08-04 10:23 | MHC.CM.PN ---
Pt not yet ready for DC, DC plan is home, self care. CM to follow and assist as needed with DC plan.
[2023-08-04 10:58] LABS: Glucose, Whole Blood 245 mg/dL (60-115)
[2023-08-04 14:51] VITALS: BP 124/61; PULSE 91; O2SAT 94
[2023-08-04 15:26] VITALS: BP 124/61; PULSE 91; RESP 18; TEMP 36.4; O2SAT 94
[2023-08-04 16:14] LABS: Glucose, Whole Blood 303 mg/dL (60-115)
--- NOTE | 2023-08-04 16:18 | P.PNIM_ITS ---
Subjective Subjective Date of Service: 08/04/23 Interval History: Sepsis due to UTI,Altered mental status Review of Systems more awake alert moving better Physical Exam 2 Vital Signs: Vital Signs: Last Vital Signs Temp 97.5 F 08/04/23 15:26 Pulse 91 08/04/23 15:26 Resp 18 08/04/23 15:26 BP 124/61 08/04/23 15:26 Pulse Ox 94 08/04/23 15:26 O2 Del Method Room Air 08/04/23 15:26 O2 Flow Rate 1 08/04/23 07:06 BMI result Body Mass Index 26.6 physical exam: aox2 ,generalised weak Heent: eyes : pupil equal and reactive chest: air entry fair ,slightly diminshed at bases ,no rales or wheezing heart:rrr,[id number] neuro: aox2 ,moves allext,limited exam due to less participation. Objective Data Active Medications Acetaminophen (Acetaminophen Supp 650 Mg Supp.Rect) 650 mg [place] Q6H PRN PRN Reason: Pain, Mild (Pain Scale 1-3) Dexamethasone Sodium Phosphate (Dexamethasone Sod Phosphate 4 Mg/Ml Vial) 4 mg IVPUSH Q6H [facility] Last Admin: 08/04/23 11:36 Dose: 4 mg Documented By: ILIA Dextrose (Dextrose 50 % 25 Gm/50 Ml Syringe) 25 gm IVPUSH Q15M PRN; Protocol PRN Reason: per Hypoglycemia Standing Ord. Docusate Sodium (Docusate Sodium 100 Mg Capsule) 100 mg PO DAILY PRN PRN Reason: Constipation Ezetimibe (Ezetimibe 10 Mg Tablet) 10 mg PO DAILY [facility] Last Admin: 08/04/23 07:40 Dose: 10 mg Documented By: ILIA Finasteride (Finasteride 5 Mg Tablet) 5 mg PO DAILY [facility] Last Admin: 08/04/23 07:40 Dose: 5 mg Documented By: ILIA Glucose (Glucose Gel 15 Gm Gel..Gram.) 15 gm PO Q15M PRN; Protocol PRN Reason: per Hypoglycemia Standing Ord. Piperacillin Sod/Tazobactam (Sod 4.5 gm/ Sodium Chloride) 100 mls @ 200 mls/hr IV Q6H [facility] Last Infusion: 08/04/23 16:01 Dose: Infused Documented By: DANIEL Sodium Chloride (Ns) 1,000 mls @ 100 mls/hr IVCONT .Q10H [facility] Last Admin: 08/04/23 05:36 Dose: 100 mls/hr Documented By: SHAYY Insulin Human Lispro (Insulin Lispro 100 Unit/Ml 3 Ml Vial) 0 unit SUBCUT QIDACHS [facility]; Protocol Last Admin: 08/04/23 11:36 Dose: 4 unit Documented By: ILIA Melatonin (Melatonin 3 Mg Tablet) 6 mg PO BEDTIME PRN PRN Reason: Insomnia Omeprazole (Omeprazole 20 Mg Capsule.) 20 mg PO DAILY@0630 [facility] Last Admin: 08/04/23 05:36 Dose: 20 mg Documented By: SHAYY Ondansetron HCl (Ondansetron Hcl 4 Mg/2 Ml Vial) 4 mg IVPUSH Q8H PRN PRN Reason: Nausea and Vomiting Sodium Chloride (0.9 % Sodium Chloride Flush 3 Ml Syringe) 3 ml IVFLUSH QSHIFT [facility] Last Admin: 08/04/23 15:21 Dose: 3 ml Documented By: DANIEL Tamsulosin HCl (Tamsulosin Hcl 0.4 Mg Capsule) 0.4 mg PO BEDTIME [facility] Last Admin: 08/03/23 20:58 Dose: 0.4 mg Documented By: DANIEL Labs 08/02/23 10:56 08/03/23 09:44 Labs: Laboratory Results - last 24 hr 08/03/23 08/04/23 08/04/23 19:13 07:04 10:54 POC Glucose 216 H 167 H 245 H 08/04/23 16:11 POC Glucose 303 H Microbiology Microbiology Results: Microbiology 08/02/23 10:56 Blood Culture - Preliminary Blood - Venous No growth after 48 hours. 08/02/23 10:55 Blood Culture - Preliminary Blood - Venous No growth after 48 hours. 08/02/23 Unknown Urine Culture - Final Urine clean catch - Urine gonsalez top Escherichia coli Assessment and Plan (1) Acute alteration in mental status: Status: Acute (2) Sepsis: Status: Acute Plan Hospital day-2: 68 yo M with PMHx of non-small cell lung cancer (treated with chemo) with metastases to the brain (treated with radiation), non-insulin dependent diabetes, HLD, and BPH, presented to the ED today with his via EMS after he had weakness, difficulty ambulating, and incoherent speech this morning being admitted for the management of sepsis in the setting of acute UTI. Sepsis due to UTI and PNA Urine culture :gram neg anne and blood cultures pending continue zosyn day1 Metabolic encephalopathy--d/t UTI, Abx as above, but has mets also, last [facility] was 3 weeks [facility]-added ct head: right sided metastatic area -edema ,no shift seen and d/w oncology. recomeneded: iv dexamethsone 4 mg q6hr,neurochecks ,we will also add neurology eval. ANJU--possibly due to low volume status from vomiting/decreased PO intake, got IVF, has ruiz ,improving Elevated d-dimer--thought to be likely due to active malignancy treated with chemo/radiation, no complaint of chest pain or shortness breath Non-SCLC with mets to brain on Keytruda - Follow with Dr. Bourne Non-insulin dependent DM controlled with diet - Diebetic diet and SSI HLD - Continue home ezetimibe BPH - Continue home finasteride - Continue home tamsulosin -- hold if BP <90/60 DVT prophylaxis: Heparin Full code ongoing hospitlisation need : management and monitoring of sepsis due to UTI not otherwise feasible in a less acute setting-need iv antibiotics ,also metabolic enecpehlapthy-(multifactorial -uti,decreased po intake ,also might brain met with edema contributing). Quality Stroke Does the patient have a stroke diagnosis?: No VTE Prior VTE?: No VTE Risk Level:: Medical - moderate - high VTE Device Contraindication: Treatment Not Indicated VTE Drug Contraindication: N/A - Med Ordered
[2023-08-04 19:11] VITALS: BP 142/75; PULSE 89; RESP 20; TEMP 36.5; O2SAT 95
[2023-08-04 19:59] LABS: Glucose, Whole Blood 307 mg/dL (60-115)
[2023-08-04] MEDS: Tamsulosin HCL 0.4 MG CAPSULE PO (20:55)
[2023-08-05] MEDS: 0.9 % Sodium Chloride Flush 3 ML SYRINGE IVFLUSH ×2 (00:37→07:45)
[2023-08-05] MEDS: Piperacillin Sodium/Tazobactam 4.5 GM in 0.9 % Sodium Chloride 100 ML IV ×2 (03:31→07:44)
[2023-08-05 03:33] VITALS: BP 105/52; PULSE 67; RESP 20; TEMP 36.9; O2SAT 93
[2023-08-05] MEDS: dexAMETHasone sod phosphate 4 MG/ML VIAL IVPUSH ×2 (05:17→11:29)
[2023-08-05] MEDS: Omeprazole 20 MG CAPSULE.DR PO (05:18)
[2023-08-05 07:07] LABS: Glucose, Whole Blood 183 mg/dL (60-115)
[2023-08-05 07:29] VITALS: BP 141/72; PULSE 69; RESP 20; TEMP 37.3; O2SAT 95
[2023-08-05] MEDS: Ezetimibe 10 MG TABLET PO (07:44)
[2023-08-05] MEDS: Finasteride 5 MG TABLET PO (07:44)
[2023-08-05] MEDS: Insulin Lispro 100 UNIT/ML 3 ML VIAL SUBCUT ×2 (07:45→11:29)
--- NOTE | 2023-08-05 08:27 | HO.PM.IMPN ---
Subjective Subjective Date of Service: 08/05/23 Interval History: Sepsis due to UTI,Altered mental status Review of Systems more awake alert moving better Physical Exam Vital Signs: Vital Signs: Last Vital Signs Temp 99.2 F 08/05/23 07:29 Pulse 69 08/05/23 07:29 Resp 20 08/05/23 07:29 BP 141/72 H 08/05/23 07:29 Pulse Ox 95 08/05/23 07:29 O2 Del Method Room Air 08/05/23 07:29 O2 Flow Rate 1 08/04/23 07:06 BMI result Body Mass Index 26.6 physical exam: aox2 ,generalised weak Heent: eyes : pupil equal and reactive chest: air entry fair ,slightly diminshed at bases ,no rales or wheezing heart:rrr,[id number] neuro: aox2 ,moves allext,limited exam due to less participation. Objective Data Active Medications Acetaminophen (Acetaminophen Supp 650 Mg Supp.Rect) 650 mg GA Q6H PRN PRN Reason: Pain, Mild (Pain Scale 1-3) Dexamethasone Sodium Phosphate (Dexamethasone Sod Phosphate 4 Mg/Ml Vial) 4 mg IVPUSH Q6H [facility] Last Admin: 08/05/23 05:17 Dose: 4 mg Documented By: OMAR Dextrose (Dextrose 50 % 25 Gm/50 Ml Syringe) 25 gm IVPUSH Q15M PRN; Protocol PRN Reason: per Hypoglycemia Standing Ord. Docusate Sodium (Docusate Sodium 100 Mg Capsule) 100 mg PO DAILY PRN PRN Reason: Constipation Ezetimibe (Ezetimibe 10 Mg Tablet) 10 mg PO DAILY [facility] Last Admin: 08/05/23 07:44 Dose: 10 mg Documented By: ILIA Finasteride (Finasteride 5 Mg Tablet) 5 mg PO DAILY [facility] Last Admin: 08/05/23 07:44 Dose: 5 mg Documented By: ILIA Glucose (Glucose Gel 15 Gm Gel..Gram.) 15 gm PO Q15M PRN; Protocol PRN Reason: per Hypoglycemia Standing Ord. Piperacillin Sod/Tazobactam (Sod 4.5 gm/ Sodium Chloride) 100 mls @ 200 mls/hr IV Q6H [facility] Last Admin: 08/05/23 07:44 Dose: 200 mls/hr Documented By: ILIA Insulin Human Lispro (Insulin Lispro 100 Unit/Ml 3 Ml Vial) 0 unit SUBCUT QIDACHS [facility]; Protocol Last Admin: 08/05/23 07:45 Dose: 2 unit Documented By: ILIA Melatonin (Melatonin 3 Mg Tablet) 6 mg PO BEDTIME PRN PRN Reason: Insomnia Omeprazole (Omeprazole 20 Mg Capsule.) 20 mg PO DAILY@0630 [facility] Last Admin: 08/05/23 05:18 Dose: 20 mg Documented By: OMAR Ondansetron HCl (Ondansetron Hcl 4 Mg/2 Ml Vial) 4 mg IVPUSH Q8H PRN PRN Reason: Nausea and Vomiting Sodium Chloride (0.9 % Sodium Chloride Flush 3 Ml Syringe) 3 ml IVFLUSH QSHIFT [facility] Last Admin: 08/05/23 07:45 Dose: 3 ml Documented By: ILIA Tamsulosin HCl (Tamsulosin Hcl 0.4 Mg Capsule) 0.4 mg PO BEDTIME [facility] Last Admin: 08/04/23 20:55 Dose: 0.4 mg Documented By: DANIEL Labs 08/02/23 10:56 08/03/23 09:44 Labs: Laboratory Results - last 24 hr 08/04/23 08/04/23 08/04/23 10:54 16:11 19:14 POC Glucose 245 H 303 H 307 H 08/05/23 07:02 POC Glucose 183 H Microbiology Microbiology Results: Microbiology 08/02/23 10:56 Blood Culture - Preliminary Blood - Venous No growth after 48 hours. 08/02/23 10:55 Blood Culture - Preliminary Blood - Venous No growth after 48 hours. 08/02/23 Unknown Urine Culture - Final Urine clean catch - Urine gonsalez top Escherichia coli Assessment and Plan Plan Hospital day-3: 68 yo M with PMHx of non-small cell lung cancer (treated with chemo) with metastases to the brain (treated with radiation), non-insulin dependent diabetes, HLD, and BPH, presented to the ED today with his via EMS after he had weakness, difficulty ambulating, and incoherent speech this morning being admitted for the management of sepsis in the setting of acute UTI. Sepsis due to UTI and PNA Urine culture :gram neg anne and blood cultures pending continue zosyn day1 Metabolic encephalopathy--d/t UTI, Abx as above, but has mets also, last MRI was 3 weeks ago [facility], luisana toxic metabolic encephalopathy-added ct head: right sided metastatic area -edema ,no shift seen and d/w oncology. recomeneded: iv dexamethsone 4 mg q6hr,neurochecks ,we will also add neurology eval. ANJU--possibly due to low volume status from vomiting/decreased PO intake, got IVF, has ruiz ,improving Elevated d-dimer--thought to be likely due to active malignancy treated with chemo/radiation, no complaint of chest pain or shortness breath Non-SCLC with mets to brain on Keytruda - Follow with Dr. Bourne Non-insulin dependent DM controlled with diet - Diebetic diet and SSI HLD - Continue home ezetimibe BPH - Continue home finasteride - Continue home tamsulosin -- hold if BP <90/60 DVT prophylaxis: Heparin Full code ongoing hospitlisation need : management and monitoring of sepsis due to UTI not otherwise feasible in a less acute setting-need iv antibiotics ,also metabolic enecpehlapthy-(multifactorial -uti,decreased po intake ,also might brain met with edema contributing). Quality Stroke Does the patient have a stroke diagnosis?: No VTE Prior VTE?: No VTE Risk Level:: Medical - moderate - high VTE Device Contraindication: Treatment Not Indicated VTE Drug Contraindication: N/A - Med Ordered
[2023-08-05 10:56] LABS: Glucose, Whole Blood 230 mg/dL (60-115)
[2023-08-05 11:30] VITALS: BP 141/72; PULSE 69; O2SAT 95
--- NOTE | 2023-08-05 12:21 | PM.DS ---
DS: Providers Provider Date of Service: 08/05/23 Date of admission: 08/02/23 18:13 Date of discharge: 08/05/23 Primary care physician: Wayne Galdamez MD Consults: 08/03/23 03:03 Consult to Hematology / Oncology Routine Consulting Provider: Heather Bourne Reason for consultation: history of lung ca met to brain 08/03/23 11:02 Consult to Neurology Routine Consulting Provider: [facility] Reason for consultation: Encephalopathy in setting of brain mets Attending physician on discharge: Ulises Zhang Discharging clinician: Ulises Zhang DS: Diagnosis Discharge Diagnosis (1) Acute alteration in mental status: Status: Acute (2) Sepsis: Status: Acute DS: Summary Hospital Course Hospital Course: 68 yo M with PMHx of non-small cell lung cancer (treated with chemo - Keytruda) with metastases to the brain started on XRT on 07/29/23 at [facility], next therapy was to be today, friday 08/04 and Sunday 08/06; h/o non-insulin dependent diabetes, HLD, and BPH, presented to the ED today with his via EMS after he had weakness, difficulty ambulating, and incoherent speech this morning. His states that patient has been feeling poorly since first radiation treatment for brain mets on 07/29/22 and has had fatigue and poor oral intake and occasional vomiting since then. However, she states that his condition was acutely worse this morning when she was trying to get him ready for his next radiation appointment. In ED he had a UTI with UA positive for WBC, bacteria, leukocyte esterase, blood, and protein. CXR showed infiltrate/atelectasis/scarring at the right lung base (this is in the region of the previously seen large lobular mass at the right lung base seen on the 01/14/2023 CT scan). D-Dimer 548 (in the setting of active malignancy and chemo/radiation) Creatinine was elevated at 1.8 (prev 1.2) and BUN 40 (prev 25), ALT 78, alk phos 166. ECG, CBC, and URI viral panel were noncontributory. He was septic temperature of 103.1 and tachycardia at 131 and received Zosyn, acetaminophen, and IVF. BP is soft at 97/55. He will be admitted for further management and treatment of sepsis due to UTI. hospital course: Patient was admitted for sepsis secondary to UTI, also found to have urinary retention as well as metabolic encephalopathy related to UTI: Patient was started on IV antibiotics, in addition chest x-ray shows mild right-sided infiltrate-possible mild pneumonia. CT head was done-possible brain metastasis with some edema: Seen by Oncology started on dexamethasone. With above supportive management patient seems to be improved significantly: Urine culture grew E coli pansensitive: Patient was switched p.o. Augmentin to cover pneumonia and UTI. thuy: Seems to be resolved with IV fluids and Schofield. Urinary retention-seen by Urology recommended to continue Flomax and Schofield for 2 weeks patient is to follow-up with Urology out patiently Dr. Rao. plan: Monitor BMP outpatient, complete course of p.o. Augmentin 875 mg p.o. b.i.d. for 7 days. Patient is to follow-up with Dr. Bourne and radiation Doctor Out patiently. In addition dexamethasone for 4 mg 3 times a day(given 10 day supply)-further use will be decided out patiently with Oncology, fPatient is to follow-up with Dr. Bourne and radiation Doctor Out patiently. Time Attestation Discharge coordination time: Greater than 30 minutes Quality: Safe Use of Opioids Does Pt have an Active Cancer Diagnosis on the Problem List?: No Quality: Stroke Does the patient have a stroke diagnosis?: No Physical Exam Vital Signs: Vital Signs: Last Vital Signs Temp 99.2 F 08/05/23 07:29 Pulse 69 08/05/23 11:30 Resp 20 08/05/23 07:29 BP 141/72 H 08/05/23 11:30 Pulse Ox 95 08/05/23 11:30 O2 Del Method Room Air 08/05/23 07:29 O2 Flow Rate 1 08/04/23 07:06 BMI result Body Mass Index 26.6 aox3,generalised weak Heent: eyes : pupil equal and reactive chest: air entry fair ,no rales or wheezing heart:[id number] neuro: aox3 ,moves allext,limited exam due to less participation. DS: Data Data Completed and Pending Labs on day of discharge: Laboratory Results - last 24 hr 08/04/23 08/04/23 08/05/23 16:11 19:14 07:02 POC Glucose 303 H 307 H 183 H 08/05/23 10:52 POC Glucose 230 H Preliminary micro results at discharge 08/02/23 10:56 Blood Culture - Preliminary Blood - Venous No growth after 48 hours. 08/02/23 10:55 Blood Culture - Preliminary Blood - Venous No growth after 48 hours. Imaging Chest x-ray: Radiologist's impression: ITS Impressions Chest X-Ray 08/02/23 11:13 IMPRESSION: Right lower lobe infiltrate/atelectasis/scarring. Venous Duplex 08/03/23 09:11 IMPRESSION: No DVT demonstrated in either lower extremity. Head CT 08/03/23 11:45 IMPRESSION: There is hyperdensity associated with the dominant intracranial metastasis involving the left posterior temporal lobe that may represent a manifestation of intralesional hemorrhage. There is also increasing expansile hypoattenuation that most likely represents edema surrounding a metastasis involving the right precentral gyrus. No substantial intracranial mass effect. No midline shift or hydrocephalus. Discharge Plan Discharge Anticipated Discharge Date/Time: 08/05/23 12:07 Patient Disposition: Home, Self-Care Discharge Diagnosis: Sepsis secondary to UTI and possible pneumonia. Metabolic encephalopathy, THUY. Referrals: Abdullahi Rao MD [Physician] - 1 Week (follow up outpatient) Heather Bourne MD [Physician] - 1 Week (follow up in 1week) Wayne Galdamez MD [Primary Care Provider] - 1 Week Discharge Medications: New amoxicillin-pot clavulanate 875-125 mg tablet 1 tab PO BID Qty: 14 0RF dexamethasone 4 mg Tablet 4 mg PO TID Qty: 30 0RF omeprazole 20 mg Capsule,Delayed Release(Dr/Ec) 20 mg PO DAILY@0630 Qty: 30 0RF Continued finasteride [Proscar] 5 mg tablet 5 mg PO DAILY 90 Days Qty: 90 2RF tamsulosin 0.4 mg capsule 0.4 mg PO BEDTIME 90 Days Qty: 90 0RF glipizide 2.5 mg tablet extended release 24hr 2.5 mg PO DAILY 30 Days Qty: 30 2RF (DME) lancets [FreeStyle Lancets] 28 gauge misc See Rx Instructions .ROUTE .MEDSUPPLY Qty: 100 0RF Rx Instructions: As directed (DME) FreeStyle Lite Strips Strip See Rx Instructions .ROUTE .MEDSUPPLY Qty: 100 0RF Rx Instructions: As directed (DME) blood-glucose meter [FreeStyle Lite Meter] Kit See Rx Instructions .ROUTE .MEDSUPPLY Qty: 1 0RF Rx Instructions: As directed ezetimibe [Zetia] 10 mg tablet 10 mg PO DAILY ondansetron 8 mg Tablet,Disintegrating 8 mg PO Q8H PRN (Reason: Nausea) Qty: 30 3RF Discharge Orders: Discharge Order (Routine); Ordered 08/05/23 Ordered By: Ulises Zhang Diet: Advance to usual diet Activity on Discharge: As tolerated Stand Alone Forms: Patient Portal Discharge page Other Ambulatory Orders: Basic Metabolic Panel (Routine) Timeframe: 1 Week Facility: [facility] - Location: Laboratory Ordered By: Ulises Zhang Care Plan Goals: Patient was admitted for sepsis secondary to UTI, also found to have urinary retention as well as metabolic encephalopathy related to UTI: Patient was started on IV antibiotics, in addition chest x-ray shows mild right-sided infiltrate-possible mild pneumonia. CT head was done-possible brain metastasis with some edema: Seen by Oncology started on dexamethasone. With above supportive management patient seems to be improved significantly: Urine culture grew E coli pansensitive: Patient was switched p.o. Augmentin to cover pneumonia and UTI. thuy: Seems to be resolved with IV fluids and Schofield. Urinary retention-seen by Urology recommended to continue Flomax and Schofield for 2 weeks patient is to follow-up with Urology out patiently Dr. Rao. Patient will be going home. Monitor BMP outpatient, complete course of p.o. Augmentin 875 mg p.o. b.i.d. for 7 days. In addition dexamethasone for 4 mg 3 times a day(given 10 day supply)-further use will be decided out patiently with Oncology, fPatient is to follow-up with Dr. Bourne and radiation Doctor Out patiently. Health Concerns: As above. Plan of Treatment: As above. Assessment: As above.
--- NOTE | 2023-08-05 12:28 | MHC.CM.PN ---
Pt. has been medically cleared for DC. His will transport him home, DC plan is home self care.
[2023-08-05] MEDS: Amoxicillin/Potassium Clav 875 MG TABLET PO (12:39)
--- NOTE | 2023-08-06 13:20 | MHC.HEMONC ---
I spoke to patient. He has no c/o. He is continuing with RT and has last appt next Wednesday and . He is aware of CT appt and appts here next week.
== END 2023-08-05 14:21 | disposition home or self-care (01) | DRG 871 ==
LOC: HO.ED 13:04 → HO.EDOVER 18:18 → HO.S3 19:31 → HO.IMC 08-03 13:38
PROVIDERS: Emergency Medicine; Internal Medicine; Admitting Provider Physician Assistant; Emergency Provider Emergency Medicine; PCP Family Medicine; Visit Provider Internal Medicine
DX: A41.9 Sepsis, unspecified organism (principal); G93.41 Metabolic encephalopathy; J18.9 Pneumonia, unspecified organism; C79.31 Secondary malignant neoplasm of brain; N39.0 Urinary tract infection, site not specified; N17.9 Acute kidney failure, unspecified; C77.0 Secondary and unspecified malignant neoplasm of lymph nodes of head, face and neck; C34.31 Malignant neoplasm of lower lobe, right bronchus or lung; J98.11 Atelectasis; B96.20 Unspecified Escherichia coli [E. coli] as the cause of diseases classified elsewhere; E11.9 Type 2 diabetes mellitus without complications; E78.5 Hyperlipidemia, unspecified; N40.1 Benign prostatic hyperplasia with lower urinary tract symptoms; R33.8 Other retention of urine; Z20.822 Contact with and (suspected) exposure to COVID-19; Z87.891 Personal history of nicotine dependence; Z79.84 Long term (current) use of oral hypoglycemic drugs; Z79.899 Other long term (current) drug therapy
CPT/HCPCS: 36415; 70450; 71045; 80048; 80053; 80061; 81001; 82947; 83605; 84443; 84484; 85025; 85379; 87040; 87086; 87088; 87186; 87502; 87635; 93005; 93970; 97162; 99285; C1758; J1100; J1644; J2543

== ENCOUNTER → 2023-08-02 10:10 | Outpatient (BNV) | payer MEDICARE, OTHER, SELFPAY | PROVIDERS: Emergency Provider Emergency Medicine; PCP Family Medicine; Visit Provider Internal Medicine Cardiovascular Disease | DX: R00.0 Tachycardia, unspecified (principal); R94.31 Abnormal electrocardiogram [ECG] [EKG] | CPT/HCPCS: 93010 ==

== ENCOUNTER → 2023-08-02 18:13 | Outpatient (BNV) | payer MEDICARE, OTHER, SELFPAY | PROVIDERS: Admitting Provider Physician Assistant; Emergency Provider Emergency Medicine; PCP Family Medicine; Visit Provider Internal Medicine | DX: C34.31 Malignant neoplasm of lower lobe, right bronchus or lung (principal); C79.31 Secondary malignant neoplasm of brain | CPT/HCPCS: 99222; 99232 ==

== ENCOUNTER → 2023-08-02 18:13 | Outpatient (BNV) | payer MEDICARE, OTHER, SELFPAY | PROVIDERS: Admitting Provider Physician Assistant; Emergency Provider Emergency Medicine; PCP Family Medicine; Visit Provider Internal Medicine | DX: N39.0 Urinary tract infection, site not specified (principal); A41.9 Sepsis, unspecified organism; N17.9 Acute kidney failure, unspecified; R41.82 Altered mental status, unspecified | CPT/HCPCS: 99223; 99232; 99233; 99239; 99499 ==

== ENCOUNTER → 2023-08-02 18:13 | Outpatient (BNV) | payer MEDICARE, OTHER, SELFPAY | PROVIDERS: Admitting Provider Physician Assistant; Emergency Provider Emergency Medicine; PCP Family Medicine; Visit Provider Psychiatry & Neurology Neurology | DX: R41.82 Altered mental status, unspecified (principal); A41.9 Sepsis, unspecified organism; R50.9 Fever, unspecified | CPT/HCPCS: 99222 ==

== ENCOUNTER 2023-08-11 08:21 | Outpatient (REF) | payer MEDICARE, OTHER, SELFPAY ==
--- NOTE | ~2023-08-11 | CT_ITS ---
EXAMINATION: CT CHEST, ABDOMEN, AND PELVIS WITH CONTRAST CLINICAL INFORMATION: Follow-up mass COMPARISON: 01/14/2023 TECHNIQUE: Multidetector volumetric CT imaging of the chest, abdomen, and pelvis was obtained after the administration of 85 mL of Omnipaque 350 intravenous contrast without immediate adverse reactions. Axial MIP volume rendering provided. Sagittal and coronal reformatted images were obtained. This CT examination was performed using dose optimization techniques as appropriate, variously including the following: *Automated exposure control *Adjustment of mA and/or kV according to patient size (this includes techniques or standardized protocols for targeted exams where dose is matched to indication/reason for exam; i.e. extremities or head) *Use of iterative reconstruction technique DLP: 147 mGy-cm for chest and 420mGy-cm for abdomen FINDINGS: LUNGS: Right lower lobe consolidation significant diminished in size, with air bronchogram the rest of lungs are clear with mild changes of emphysema. There is residual mass in the dome of the diaphragm on the right measured 1.6 cm possibly scarring. There is stable 0.5 cm subpleural calcification in the right lower lobe. MEDIASTINUM: The mediastinum appears unremarkable. There is no pericardial effusion, mediastinal or hilar lymphadenopathy. CORONARY ARTERY CALCIFICATION: Present PLEURA: There is no pleural effusion. No pleural mass or thickening. AXILLA: No lymphadenopathy by size criteria. LIVER, GALLBLADDER, AND BILIARY TREE: The liver appears unremarkable in size, shape, and attenuation. No focal hepatic lesion or biliary ductal dilatation is appreciated. There is cholelithiasis with small amount of stones in the dependent portion of the gallbladder neck. CBD is prominent and there is no evidence of choledocholithiasis. PANCREAS: Unremarkable SPLEEN: Unremarkable ADRENAL GLANDS: There are bilateral adrenal gland masses, new since previous study, measured on the right 3.8 x 2.3 x 3.1 cm and on the left 5.4 x 4.4 x 6.3 cm. KIDNEYS AND URETERS: 2 simple cysts seen in the lower pole of left kidney, measured 3.6 and 2.2 cm. There is no hydroureteronephrosis or solid lesions. BLADDER: Urinary bladder decompressed via Schofield catheter GASTROINTESTINAL TRACT: The small and large bowel appear unremarkable. Appendix is normal. ABDOMINAL WALL: No significant hernia is appreciated. LYMPH NODES: No evidence of adenopathy by size criteria. VASCULAR: Unremarkable. PELVIC VISCERA: Unremarkable OSSEOUS STRUCTURES: There are mild degenerative changes in lumbar spine CT/CT abdomen pelvis w IV con IMPRESSION: 1. Interval development of bilateral adrenal gland masses. 2. Significant improvement in right lower lobe consolidation. 3. Cholelithiasis.
[2023-08-11] MEDS: iohexoL 350 MG/ML 75 ML INFUS..BTL 85 ML IV (09:26)
== END 2023-08-11 08:22 | disposition home or self-care (01) ==
LOC: HO.CT 08:21
PROVIDERS: PCP Family Medicine; Visit Provider Internal Medicine
DX: C34.91 Malignant neoplasm of unspecified part of right bronchus or lung (principal)
CPT/HCPCS: 71260; 74177; Q9967

== ENCOUNTER → 2023-08-18 08:22 | Outpatient (BNVA) | payer MEDICARE, OTHER, SELFPAY | PROVIDERS: PCP Family Medicine; Visit Provider Urology ==

== ENCOUNTER 2023-09-01 10:00 | Outpatient (RCR) | payer MEDICARE, OTHER, SELFPAY ==
[2022-12-21 11:23] VITALS: BP 173/79; PULSE 83; RESP 14; TEMP 36.4; O2SAT 97; BMI 28.0
--- NOTE | 2022-12-21 11:33 | P.CNHO_ITS ---
Subjective - Subjective Chief complaint: Swelling left neck Patient: new to practice Consult date: 12/21/22 Primary Care Provider: Wayne Galdamez MD Medical Summary: Diagnosis: Left neck lymphadenopathy November 2022 HPI - Consult Narrative Reason for consult: Left neck adenopathy Narrative: William Barton is a 67 year old male referred for evaluation of left neck adenopathy suspicious for malignancy. Patient presented for a routine physical in November 2022 and was noted to have swollen left neck lymph adenopathy. Patient h imself did not feel any swollen glands. He says he is in no pain. He has no other complaints such as difficulty swallowing, dysphagia or dysphonia. He smoked on and off for 50 years, he quit smoking about 2-3 years ago. He had weight loss of nearly 50 lb in the last 2 years but he is now gaining it back. He says partly to his attributes it to diabetes. He has only recently established with PCP. He did not have routine medical care for over 40 years. He has never had a colonoscopy. His family history significant for lung cancer in his father who in his 50s. He has 3 children and 4 siblings were healthy. Patient denies any other complaints such as headache or dizziness. No chest pain, shortness of breath or hemoptysis. He has had cough on and off about a year. Review of Systems - Constitutional Reports as per HPI, Denies fatigue, Denies malaise, Denies night sweats, Denies poor appetite - Cardiovascular Reports no additional cardiovascular complaints - Respiratory Reports no additional respiratory complaints - Gastrointestinal Reports no additional gastrointestinal complaints Oncology Screenings - ECOG Performance Status ECOG Performance Status: 1 [facility] Medical History: Medical History (Last Reviewed 12/21/22 @ 11:26 by Renée Guido) Patient denies medical problems Family History: Family History (Last Reviewed 12/21/22 @ 11:26 by Renée Guido) Brother Diabetes mellitus Father Lung cancer Mother Stroke Surgical History: Surgical History (Last Reviewed 12/21/22 @ 11:26 by Renée Guido) History of tonsillectomy History of tonsillectomy Social History: Social History (Last Reviewed 12/21/22 @ 11:26 by Renée Guido) Living Situation History: Household Members: Spouse Housing: House Do you presently have visiting nurse or other home services: No Alcohol History Details: 1. How often do you have a drink containing alcohol?: a. Never Tobacco History: Patient Tobacco Use Status: Former Tobacco user Tobacco use type: Cigarette Years Smoked: quit smoking 6 months ago e-Cigarette/Vaping Use: Former Use Second Hand Smoke Exposure: No Substance Use History: Use of substances other than those prescribed or required for medical reasons : No Domestic Abuse History: Have you been hit, kicked, punched, or otherwise hurt by someone within the past year? If so, by whom?: No Do you feel safe in your current relationship?: Yes Homicidal Assessment: Do you have thoughts of harming others: None Do you have a plan to hurt others: No Plan Do you have the means to hurt others: No Nutrition Assessment: Recently lost weight without trying: No Occupation Assessmet: service: No Current occupational status: retired Current occupational exposures/hazards: No Home Medications and Allergies Home Medications Medication Instructions Recorded Confirmed Type ezetimibe 10 mg tablet (Zetia) 10 mg PO DAILY 12/21/22 12/21/22 History Allergies Allergy/AdvReac Type Severity Reaction Status Date / Time pollen extracts Allergy sneezing Verified 12/17/22 11:32 Physical Exam Vital signs: Vital Signs Temp 97.6 F 12/21/22 11:23 Pulse 83 12/21/22 11:23 Resp 14 12/21/22 11:23 BP 173/79 H 12/21/22 11:23 Pulse Ox 97 12/21/22 11:23 O2 Del Method Room Air 12/21/22 11:23 Intake & Output 12/20/22 12/21/22 12/21/22 18:59 06:59 18:59 Other: Weight 81 kg Weight in Grams [id number] Weight 81 kg - Constitutional Present: no acute distress - Routine HEENT Exam Head: Present: normal inspection Eye: Present: normal appearance, PERRL - Routine Neck Exam Present: supple, lymphadenopathy, swelling - Routine Respiratory Exam Present: CTAB. Absent: accessory muscle use - Routine Cardiovascular Exam Cardiovascular: Present: RRR, S1, S2 - Routine Abdominal Exam Present: soft. Absent: mass - Routine Extremities Exam Absent: joint swelling - Routine Skin Exam Present: intact. Absent: cyanosis - Routine Neurological Exam Present: alert, oriented X3 Assessment and Plan Patient Active problem list reviewed?: Yes (1) Mass of lateral neck Status: Acute Assessment and plan: 1. This is a 67-year-old male, presenting with left neck adenopathy suspicious for malignancy. CT neck performed 12/08/2022 showed pathologically enlarged level 2 B lymph node in the left and a smaller left level IIB lymph node consistent with metastatic lymphadenopathy. 7 mm round enhancing focus in the left temporal lobe, MRI of brain with and without contrast was recommended. A 3.6 cm ground-glass opacity in the right upper lobe and multiple mediastinal lymph nodes with a right pleural effusion versus pleural thickening, recommend CT chest with contrast for further assessment. Asymmetric appearance of the oropharynx on the right which appears to be related to tortuosity of the right internal carotid artery. His PCP has ordered brain MRI as well as CT chest, has not been scheduled yet. I discussed above findings with the patient and his . I have ordered ultrasound-guided biopsy of left cervical lymph node for or pathological diagnosis. He was asked to discontinue baby aspirin as of today. Possibilities here are metastatic malignancy from a lung primary or head and neck, upper GI primary or lymphoma. Depending on pathological diagnosis further studies, PET-CT and treatment recommendations will be made. All of the above were discussed with the patient and his , they are agreeable for above recommendations. Follow-up in 2 weeks. - Time Spent With Patient Time Spent with Patient (in minutes): 45
[2022-12-21 12:16] LABS: Prothrombin Time 11.3 SEC (10.0-13.1)
[2022-12-21 12:25] LABS: Lactate Dehydrogenase 166 U/L (118-273)
--- NOTE | 2022-12-21 12:51 | MHC.HEMONC ---
I met with pt during his oncology consultation with Dr Bourne. He has imaging of neck which may be consistent with cancer as well as a nodule on lung. Dr Galdamez has ordered brain MRI and chest CT. Dr Bourne will plan on getting biopsy once scan is done and she can review potential sites with Radiologist. Pt is aware he is to stop ASA immediately due to pending bx. He will return in 3 weeks for f/u once above is done.I gave him my contact information should he have questions. He does have HCP on file.
--- NOTE | 2022-12-30 13:22 | MHC.HEMONC ---
Rad Onc referral made to [facility] for brain mets per MRI done yesterday. Pt will see Dr Kathleen at 11 am on 01/07. Notes faxed to Dr Kathleen. They will call him with date/time. I advised pt that Dr Bourne was ordering dexamethasone so he doesn't develop sx. He has f/u with Dr Galdamez tomorrow. I called his office and spoke to his RN and explained MRI result was in and what Dr Bourne ordered and that it was unclear if the Doctor received report. The pt told me that he had seen it on the portal and thought it doesn't sound good . I offered for Dr Bourne to speak with him but he said he will see Dr Galdamez tomorrow. Lymph node BX pending and CT of chest still not scheduled yet and I mentioned to Dr Galdamez's RN that per Centralized Scheduling they have reached out to the office several times for order clarification before it can be booked.
--- NOTE | 2023-01-06 13:44 | HO.HEMONCPA ---
Addendum entered by Taryn Brannon 01/18/23 15:50: THOMAS AVILA AT [facility] CALLED PT TO BOOK AND HE ADVISED HAVING DONE AT [facility] BOOKED BY OTHER MD Original Note: PA FOR PET/CT APPROVED AUTH# [id number] FAXED [facility] FOR SCHEDULING
--- NOTE | 2023-01-11 09:55 | HE.ONCSEC ---
LVM reminding pt of appt on 01/13/23 at 3:00pm
--- NOTE | 2023-01-13 14:53 | PM.HEMONCPN ---
Medical Summary - Medical Summary Date of Service: 01/13/23 Chief complaint: Follow-up Primary Care Provider: Wayne Galdamez MD Medical Summary: Diagnosis: Left neck lymphadenopathy November 2022, squamous cell carcinoma. Patient presented for a routine physical in November 2022 and was noted to have swollen left neck lymph adenopathy. Interval History Interval history: Patient is here in follow-up. He reports feeling very well since he started taking dexamethasone. He denies any headache or dizziness. Was seen by Dr. Kathleen, who recommended that she decrease dose of steroid and received systemic therapy rather than any radiation therapy to his brain. Review of Systems - Constitutional Reports as per HPI, Denies lack of energy, Denies malaise, Denies weight loss - Cardiovascular Reports no additional cardiovascular complaints - Respiratory Reports no additional respiratory complaints - Gastrointestinal Reports no additional gastrointestinal complaints PMFSH Medical History: Medical History (Last Reviewed 12/31/22 @ 10:44 by Jackie Jaquez [facility]) Patient denies medical problems Family History: Family History (Last Reviewed 01/13/23 @ 15:01 by Renée Guido) Brother Diabetes mellitus Father Lung cancer Mother Stroke Surgical History: Surgical History (Last Reviewed 01/13/23 @ 15:01 by Renée Guido) History of tonsillectomy History of tonsillectomy Social History: Social History (Last Reviewed 01/13/23 @ 15:01 by Renée Guido) Living Situation History: Household Members: Spouse Housing: House Do you presently have visiting nurse or other home services: No Alcohol History Details: 1. How often do you have a drink containing alcohol?: a. Never Tobacco History: Patient Tobacco Use Status: Former Tobacco user Tobacco use type: Cigarette Years Smoked: quit smoking 6 months ago e-Cigarette/Vaping Use: Former Use Second Hand Smoke Exposure: No Substance Use History: Use of substances other than those prescribed or required for medical reasons: No Domestic Abuse History: Have you been hit, kicked, punched, or otherwise hurt by someone within the past year? If so, by whom?: No Do you feel safe in your current relationship?: Yes Homicidal Assessment: Do you have thoughts of harming others: None Do you have a plan to hurt others: No Plan Do you have the means to hurt others: No Nutrition Assessment: Recently lost weight without trying: No Occupation Assessmet: service: No Current occupational status: retired Current occupational exposures/hazards: No Home Medications and Allergies Home Medications Medication Instructions Recorded Confirmed Type ezetimibe 10 mg tablet (Zetia) 10 mg PO DAILY 12/21/22 01/13/23 History Allergies Allergy/AdvReac Type Severity Reaction Status Date / Time pollen extracts Allergy sneezing Verified 12/17/22 11:32 Exam Vital signs: Vital Signs Temp 97.6 F 12/21/22 11:23 Pulse 83 12/21/22 11:23 Resp 14 12/21/22 11:23 BP 173/79 H 12/21/22 11:23 Pulse Ox 97 12/21/22 11:23 O2 Del Method Room Air 12/21/22 11:23 Weight 81 kg BMI result Body Mass Index 28.0 - Constitutional Present: no acute distress - Routine HEENT Exam Head: Present: normal inspection - Routine Neck Exam Present: lymphadenopathy - Routine Respiratory Exam Present: CTAB. Absent: accessory muscle use - Routine Cardiovascular Exam Cardiovascular: Present: RRR, S1, S2 - Routine Abdominal Exam Present: soft. Absent: mass - Routine Extremities Exam Absent: joint swelling - Routine Skin Exam Present: intact. Absent: cyanosis - Routine Neurological Exam Present: alert, oriented X3 Data - Labs Labs: 12/21/22 12:00 Carcinoembryonic Antigen Routine Lactate Dehydrogenase Routine PT with INR [Prothrombin Time INR] Stat Laboratory Last Values PT 11.3 SEC (10.0-13.1) 12/21/22 12:00 INR 1.0 (0.9-1.1) 12/21/22 12:00 Lactate Dehydrogenase 166 U/L (118-273) 12/21/22 12:00 Carcinoembryonic Ag 6.50 ng/mL 12/21/22 12:00 Assessment and Plan Patient Active problem list reviewed?: Yes (1) Mass of lateral neck Status: Acute Assessment and plan: 1. This is a 67-year-old male, presenting with left neck adenopathy, core biopsy of left cervical node performed 12/28/2022 showed poorly differentiated squamous cell carcinoma. CT neck performed 12/08/2022 showed pathologically enlarged level 2 B lymph node in the left and a smaller left level IIB lymph node consistent with metastatic lymphadenopathy. 7 mm round enhancing focus in the left temporal lobe, MRI of brain with and without contrast was recommended. A 3.6 cm ground-glass opacity in the right upper lobe and multiple mediastinal lymph nodes with a right pleural effusion versus pleural thickening, recommend CT chest with contrast for further assessment. Asymmetric appearance of the oropharynx on the right which appears to be related to tortuosity of the right internal carotid artery. Brain MRI performed 12/29/2022 showed heterogenously enhancing lesions involving right precentral gyrus and left posterior temporal lobe worrisome for intracranial metastatic disease. No midline shift. Lesion in the left posterior temporal lobe measuring 1 cm and 1.4 cm in the right precentral gyrus which was associated with small margin of edema. He has not been recommended any interventions by radiation oncologist. Dose of dexamethasone has been reduced to 2 mg b.i.d., I have asked him to taper off in the next week to [address] chest with contrast was ordered over a month ago but not yet scheduled. PET scan has been scheduled at [facility] for January 25. I have requested NGS/molecular testing on tumor. All of the above was explained to patient and his today. Further recommendations to follow. Follow-up in 2 weeks. - Time Spent With Patient Time Spent with Patient (in minutes): 20
[2023-01-13 14:55] VITALS: BP 150/76; PULSE 78; RESP 14; TEMP 36.9; O2SAT 96; BMI 27.8
--- NOTE | 2023-01-13 15:57 | MHC.HEMONCMA ---
patient seen today for followup to mri, VSS, followup on 01/27/2023.
--- NOTE | 2023-01-14 08:23 | MHC.HEMONCMA ---
LM on VM for patient to call me back, CT Chest with con ordered and booked for 01/14/23 today at 4:30 with fasting 3 hrs prior, will try again later to reach patient.
--- NOTE | 2023-01-26 08:52 | HO.HEMONCPA ---
CHEMO NO PRIOR AUTH NEEDED COVERED BY MEDICARE PART B BENEFITS REFERENCE - [id number] ON 01/25/23 AT 0852AM EST
--- NOTE | 2023-01-26 10:44 | MHC.HEMONC ---
Nurse called pt, booked him for new-start Pembrolizumab/Paclitaxel/Carboplatin on 01/29/23, pt already sched for Onc f/u and chemo teach afternoon of 01/27/23, per JODI Centeno, no PA required for these drugs. Dr. Bourne was asked to update tx plan for Neulasta OnPro to be given same day as tx on 01/29/23. Pt to have labs drawn and sign concent on 01/27/23. Pharmacy was notified of new-start via email.
--- NOTE | 2023-01-27 15:01 | P.PNHO-ONC_ITS ---
Medical Summary - Medical Summary Date of Service: 01/27/23 Chief complaint: Follow-up Primary Care Provider: Wayne Galdamez MD Medical Summary: Diagnosis: Left neck lymphadenopathy November 2022, squamous cell carcinoma. Patient presented for a routine physical in November 2022 and was noted to have swollen left neck lymph adenopathy. Interval History Interval history: Patient is here in follow-up. He is doing quite well and has new complaints today. He has been tapered off the dexamethasone. Denies any headache or dizziness. Cough or shortness breath. He is accompanied by his today. He is here to discuss results of imaging study and further management. Review of Systems - Constitutional Reports as per HPI, Denies anorexia, Denies malaise, Denies night sweats, Denies weight loss - Cardiovascular Reports no additional cardiovascular complaints - Respiratory Reports no additional respiratory complaints - Gastrointestinal Reports no additional gastrointestinal complaints PMFSH Medical History: Medical History (Last Reviewed 12/31/22 @ 10:44 by Jackie Jaquez [facility]) Patient denies medical problems Family History: Family History (Last Reviewed 01/13/23 @ 15:01 by Renée Guido) Brother Diabetes mellitus Father Lung cancer Mother Stroke Surgical History: Surgical History (Last Reviewed 01/13/23 @ 15:01 by Renée Guido) History of tonsillectomy History of tonsillectomy Social History: Social History (Last Reviewed 01/13/23 @ 15:01 by Renée Guido) Living Situation History: Household Members: Spouse Housing: House Do you presently have visiting nurse or other home services: No Alcohol History Details: 1. How often do you have a drink containing alcohol?: a. Never Tobacco History: Patient Tobacco Use Status: Former Tobacco user Tobacco use type: Cigarette Years Smoked: quit smoking 6 months ago e-Cigarette/Vaping Use: Former Use Second Hand Smoke Exposure: No Substance Use History: Use of substances other than those prescribed or required for medical reasons : No Domestic Abuse History: Have you been hit, kicked, punched, or otherwise hurt by someone within the past year? If so, by whom?: No Do you feel safe in your current relationship?: Yes Homicidal Assessment: Do you have thoughts of harming others: None Do you have a plan to hurt others: No Plan Do you have the means to hurt others: No Nutrition Assessment: Recently lost weight without trying: No Occupation Assessmet: service: No Current occupational status: retired Current occupational exposures/hazards: No Home Medications and Allergies Home Medications Medication Instructions Recorded Confirmed Type ezetimibe 10 mg tablet (Zetia) 10 mg PO DAILY 12/21/22 01/13/23 History Allergies Allergy/AdvReac Type Severity Reaction Status Date / Time pollen extracts Allergy sneezing Verified 12/17/22 11:32 Exam Vital signs: Vital Signs Temp 98.5 F 01/13/23 14:55 Pulse 78 01/13/23 14:55 Resp 14 01/13/23 14:55 BP 150/76 H 01/13/23 14:55 Pulse Ox 96 01/13/23 14:55 O2 Del Method Room Air 01/13/23 14:55 Weight 80.5 kg BMI result Body Mass Index 27.8 - Constitutional Present: no acute distress - Routine HEENT Exam Head: Present: normal inspection - Routine Neck Exam Present: lymphadenopathy - Routine Respiratory Exam Present: CTAB. Absent: accessory muscle use - Routine Cardiovascular Exam Cardiovascular: Present: RRR, S1, S2 - Routine Abdominal Exam Present: soft. Absent: mass - Routine Extremities Exam Absent: joint swelling - Routine Skin Exam Present: intact. Absent: cyanosis - Routine Neurological Exam Present: alert, oriented X3 Data - Labs CBC & Chem 7: 01/27/23 15:03 01/27/23 15:03 Assessment and Plan Patient Active problem list reviewed?: Yes (1) Mass of lateral neck Status: Acute Assessment and plan: 1. This is a 67-year-old male, presenting with metastatic non-small cell lung cancer diagnosed in December 2022. He presented with left neck adenopathy, core biopsy of left cervical node performed 12/28/2022 showed poorly differentiated squamous cell carcinoma. Molecular studies showed PDL1 CPS of 25%, TPS 20%, TMB 3.2 m/mol, MSI stable. [employer] 648 gene panel showed no potentially actionable or biologically relevant pathogenic variants. CT neck performed 12/08/2022 showed pathologically enlarged level 2 B lymph node in the left and a smaller left level IIB lymph node consistent with metastatic lymphadenopathy. 7 mm round enhancing focus in the left temporal lobe, MRI of brain with and without contrast was recommended. A 3.6 cm ground-glass opacity in the right upper lobe and multiple mediastinal lymph nodes with a right pleural effusion versus pleural thickening, recommend CT chest with contrast for further assessment. Asymmetric appearance of the oropharynx on the right which appears to be related to tortuosity of the right internal carotid artery. CT chest with contrast performed on 01/13/2023 showed large ill-defined mass lesion in the right lower lobe extending into the right middle lobe with adjacent consolidation. Innumerable satellite nodules seen throughout the right lower and middle lobes. Subcarinal lymph node measuring 1.7 cm. PET-CT performed at [place] on 01/25/2023 showed intensely hypermetabolic necrotic mass replacing right lower lobe consistent with primary lung cancer. Minimally hypermetabolic nodules in bilateral upper lobes, hypermetabolic left cervical and subcarinal lymph nodes, 1.3 cm lytic lesion at T3 suspicious for metastasis as well as left adrenal gland uptake suspicious for metastatic disease. Brain MRI performed 12/29/2022 showed heterogenously enhancing lesions involving right precentral gyrus and left posterior temporal lobe worrisome for intracranial metastatic disease. No midline shift. Lesion in the left posterior temporal lobe measuring 1 cm and 1.4 cm in the right precentral gyrus which was associated with small margin of edema. He was seen by Dr. Kathleen for radiation oncology. For now he will be monitored closely as he is being started on systemic chemo/immunotherapy, he is recommended repeat brain MRI in 4-6 weeks. I have discussed all of the above findings with patient and his . He has stage IV or metastatic non-small cell lung cancer, poorly differentiated s quamous histology. All the PDL1 is positive it is over 50% therefore have recommended systemic therapy with chemotherapy combined with immunotherapy. For first-line therapy he has been recommended [place] ore[place] doublet with carboplatin, paclitaxel and pembrolizumab administered every 3 weeks. We discussed all possible side effects of chemo immunotherapy including neuropathy, cytopenias, risk of infection, organ damage and immune mediated toxicities. I also discussed MediPort placement which will be scheduled in the future. He will be started on treatment on 01/29/2023. Follow-up in 3 weeks. - Time Spent With Patient Time Spent with Patient (in minutes): 35
[2023-01-27 15:06] LABS: MANUAL DIFF FLAG NO
[2023-01-27 15:11] LABS: Basophils Percent Auto 0.4 % (0-2); Eosinophils Absolute Auto 0.2 X10*3/uL (0.0-0.4); Eosinophils Percent Auto 1.8 % (0-4); Hematocrit 43.3 % (42.0-52.0); Hemoglobin 14.1 g/dl (14.0-18.0); Imm Gran Abs Auto 0.08 X10*3/uL (0.00-0.03); Lymphocytes Absolute Auto 1.3 X10*3/uL (1.2-4.9); Lymphocytes Percent Auto 15.8 % (20-40); Mean Corpuscular HGB Conc 32.6 g/dl (31.0-36.0); Mean Corpuscular Hemoglobin 29.1 pg (27.0-33.0); Mean Corpuscular Volume 89.5 fL (80.0-98.0); Mean Platelet Volume 8.9 fL (9.4-12.4); Monocytes Absolute Auto 0.8 X10*3/uL (0.1-1.2); Monocytes Percent Auto 9.8 % (2-11); Neutrophils Absolute Auto 5.9 x10*3/uL (2.0-8.3); Neutrophils Percent Auto 71.2 % (45-73); Platelet Count 222 X10*3/uL (160-400); Red Blood Count 4.84 X10*6/uL (4.60-5.80); Red Cell Distribution Width 15.5 % (11.0-16.0); White Blood Count 8.3 X10*3/uL (4.8-10.8)
--- NOTE | 2023-01-27 15:35 | MHC.HEMONCMA ---
Patient seen today for followup with chemo teach, VSS, labs, followup Wednesday for 1st treatment.
[2023-01-27 16:11] LABS: Alanine Aminotransferase 44 U/L (0-40); Albumin Level 3.7 g/dL (3.5-5.0); Alkaline Phosphatase 69 U/L (39-117); Aspartate Amino Transferase 28 U/L (5-37); Bilirubin Total 0.3 mg/dL (0.0-1.0); Blood Urea Nitrogen 16 mg/dL (9-16); Calcium 9.4 mg/dL (8.4-10.2); Chloride 104 mmol/L (96-108); Creatinine Clr Calc Pharmacy 80.5; Estimated Glomerular Filt Rate > 60; Glucose Random 139 mg/dL (60-115); Potassium 3.8 mmol/L (3.3-5.1); Sodium 139 mmol/L (135-145); Total Protein 7.1 g/dL (6.5-8.0)
--- NOTE | 2023-01-27 16:26 | MHC.HEMONC ---
Pt was in for Onc f/u and chemo teach appt for Pembrolizumab/Paclitaxel/Carboplatin, nurse reviewed drug admin schedule, pharmacokinetics of targeted therapies on cancel cell communication, possible side effects including myelosuppression, precautions to avoid infection, N/V/D, rash, mouth ulcers, alopecia, neuropathym importance of communication of any new or worsening side effects, checking blood work routinely. Pt had blood drawn while here, nurse requested Dr. Bourne to send anti-emetic to pt's pharmacy. Pt to return on 01/29 for C1D1.
[2023-01-27 16:34] LABS: Thyroid Stimulating Hormone 1.09 uIU/mL (0.32-4.0)
[2023-01-27 21:07] LABS: Carbon Dioxide 23 mmol/L (22-29)
[2023-01-28 05:14] LABS: HBS Num1 1.56 mIU/mL (0-7.99); HBc Num1 0.16 S/CO (0.00-0.79); Hepatitis B Core Antibody Nonreactive (Nonreactive); Hepatitis B Surface Antigen Negative (Negative); ~Hepatitis B Surface Antibody NONREACTIVE (Nonreactive)
[2023-01-29 08:24] VITALS: BP 149/71; PULSE 90; RESP 18; TEMP 36.6; O2SAT 98; BMI 27.8
[2023-01-29] MEDS: Acetaminophen 325 MG TABLET 650 MG PO (09:08)
[2023-01-29] MEDS: Famotidine/PF 20 MG/2 ML VIAL IVPUSH (09:09)
[2023-01-29] MEDS: dexAMETHasone sod phosphate/NS 12 MG/50 ML PIGGYBACK 200 MG IV (09:12)
[2023-01-29] MEDS: diphenhydrAMINE HCL 50 MG/ML VIAL 25 MG IVPUSH (09:12)
[2023-01-29] MEDS: Fosaprepitant Dimeglumine 150 MG in 0.9 % Sodium Chloride 145 ML 300 MG IV (09:34)
--- NOTE | 2023-01-29 15:57 | MHC.HEMONC ---
Pt here for C1D1 Carboplatin/Paclitaxel/Pembrolizumab. (No PA needed- medicare) Labs drawn 01/27/23 reviewed-okay to receive treatment today. Pt states he feels well today. #22 angio inserted into left forearm with blood return noted. Pre medicated with emend, zofran, tylenol, dexamethasone, benadryl, pepcid. Pembrolizumab/Paclitaxel/Carbplatin given as directed-tolerated well. No Neulasta Onpro today per Dr Bourne-will wait and see how pt tolerates chemotherapy. Peripheral IV removed-no edema or redness at site after removal of IV. Pt reminded to take dexamethasone twice a day for next 2 days.-Verbalizes understanding of information given. Discharge packet given with next appointment scheduled-pt to return next Wednesday02/05/23 for repeat labs post chemotherapy. Pt instructed to call with any problems, side effects or concerns-verbalizes understanding of information given.
[2023-02-05 08:04] LABS: MANUAL DIFF FLAG NO
[2023-02-05 08:09] LABS: Basophils Percent Auto 0.4 % (0-2); Eosinophils Absolute Auto 0.1 X10*3/uL (0.0-0.4); Eosinophils Percent Auto 1.6 % (0-4); Hematocrit 43.9 % (42.0-52.0); Hemoglobin 14.6 g/dl (14.0-18.0); Imm Gran Abs Auto 0.05 X10*3/uL (0.00-0.03); Imm Gran Pct Auto 0.9 % (0.0-0.4); Lymphocytes Absolute Auto 1.1 X10*3/uL (1.2-4.9); Lymphocytes Percent Auto 19.1 % (20-40); Mean Corpuscular HGB Conc 33.3 g/dl (31.0-36.0); Mean Corpuscular Hemoglobin 29.4 pg (27.0-33.0); Mean Corpuscular Volume 88.5 fL (80.0-98.0); Mean Platelet Volume 8.9 fL (9.4-12.4); Monocytes Absolute Auto 0.3 X10*3/uL (0.1-1.2); Monocytes Percent Auto 5.5 % (2-11); Neutrophils Percent Auto 72.5 % (45-73); Platelet Count 336 X10*3/uL (160-400); Red Blood Count 4.96 X10*6/uL (4.60-5.80); White Blood Count 5.5 X10*3/uL (4.8-10.8)
[2023-02-05 08:25] LABS: Alanine Aminotransferase 34 U/L (0-40); Albumin Level 3.9 g/dL (3.5-5.0); Alkaline Phosphatase 76 U/L (39-117); Anion Gap 15 (12-20); Aspartate Amino Transferase 20 U/L (5-37); Bilirubin Total 0.4 mg/dL (0.0-1.0); Blood Urea Nitrogen 21 mg/dL (9-16); Calcium 9.8 mg/dL (8.4-10.2); Carbon Dioxide 24 mmol/L (22-29); Chloride 103 mmol/L (96-108); Creatinine Clr Calc Pharmacy 75.4; Estimated Glomerular Filt Rate > 60; Glucose Random 166 mg/dL (60-115); Potassium 4.5 mmol/L (3.3-5.1); Sodium 137 mmol/L (135-145); Total Protein 7.5 g/dL (6.5-8.0)
--- NOTE | 2023-02-05 12:36 | MHC.HEMONC ---
Post chemo labs reviewed. Patient states he feels well today.
[2023-02-18 08:44] LABS: MANUAL DIFF FLAG NO
[2023-02-18 08:57] LABS: Basophils Absolute Auto 0.1 X10*3/uL (0.0-0.2); Eosinophils Absolute Auto 0.1 X10*3/uL (0.0-0.4); Eosinophils Percent Auto 0.7 % (0-4); Hematocrit 41.3 % (42.0-52.0); Imm Gran Abs Auto 0.37 X10*3/uL (0.00-0.03); Imm Gran Pct Auto 3.8 % (0.0-0.4); Lymphocytes Absolute Auto 1.5 X10*3/uL (1.2-4.9); Lymphocytes Percent Auto 15.5 % (20-40); Mean Corpuscular HGB Conc 33.9 g/dl (31.0-36.0); Mean Corpuscular Hemoglobin 29.9 pg (27.0-33.0); Mean Corpuscular Volume 88.2 fL (80.0-98.0); Mean Platelet Volume 8.9 fL (9.4-12.4); Monocytes Absolute Auto 1.1 X10*3/uL (0.1-1.2); Monocytes Percent Auto 11.5 % (2-11); Neutrophils Absolute Auto 6.5 x10*3/uL (2.0-8.3); Neutrophils Percent Auto 67.5 % (45-73); Platelet Count 361 X10*3/uL (160-400); Red Blood Count 4.68 X10*6/uL (4.60-5.80); Red Cell Distribution Width 15.8 % (11.0-16.0); White Blood Count 9.7 X10*3/uL (4.8-10.8)
[2023-02-18 09:05] LABS: Alanine Aminotransferase 18 U/L (0-40); Albumin Level 3.9 g/dL (3.5-5.0); Alkaline Phosphatase 62 U/L (39-117); Anion Gap 12 (12-20); Aspartate Amino Transferase 15 U/L (5-37); Bilirubin Total 0.4 mg/dL (0.0-1.0); Blood Urea Nitrogen 18 mg/dL (9-16); Calcium 10.1 mg/dL (8.4-10.2); Carbon Dioxide 27 mmol/L (22-29); Chloride 103 mmol/L (96-108); Estimated Glomerular Filt Rate > 60; Glucose Random 141 mg/dL (60-115); Potassium 4.4 mmol/L (3.3-5.1); Sodium 138 mmol/L (135-145); Total Protein 7.5 g/dL (6.5-8.0)
--- NOTE | 2023-02-18 12:37 | MHC.HEMONC ---
Pre chemo labs drawn and reviewed.
[2023-02-18 17:15] LABS: Thyroid Stimulating Hormone 0.62 uIU/mL (0.32-4.0)
[2023-02-19 08:26] VITALS: BP 186/86; PULSE 86; RESP 18; TEMP 36.9; O2SAT 97; BMI 27.8
[2023-02-19] MEDS: diphenhydrAMINE HCL 50 MG/ML VIAL 25 MG IVPUSH (08:53)
[2023-02-19] MEDS: Famotidine/PF 20 MG/2 ML VIAL IVPUSH (08:53)
[2023-02-19] MEDS: Acetaminophen 325 MG TABLET 650 MG PO (08:53)
[2023-02-19] MEDS: dexAMETHasone sod phosphate/NS 12 MG/50 ML PIGGYBACK 200 MG IV (08:57)
[2023-02-19] MEDS: Fosaprepitant Dimeglumine 150 MG in 0.9 % Sodium Chloride 145 ML 300 MG IV (08:57)
--- NOTE | 2023-02-19 10:43 | P.PNHO-ONC_ITS ---
Medical Summary - Medical Summary Date of Service: 02/19/23 Chief complaint: Follow-up and scheduled treatment Primary Care Provider: Wayne Galdamez MD Medical Summary: Diagnosis: Left neck lymphadenopathy November 2022, squamous cell carcinoma. Patient presented for a routine physical in November 2022 and was noted to have swollen left neck lymph adenopathy. CT neck performed 12/08/2022 showed pathologically enlarged level 2 B lymph node in the left and a smaller left level IIB lymph node consistent with metastatic lymphadenopathy. 7 mm round enhancing focus in the left temporal lobe, MRI of brain with and without contrast was recommended. A 3.6 cm ground-glass opacity in the right upper lobe and multiple mediastinal lymph nodes with a right pleural effusion versus pleural thickening, recommend CT chest with contrast for further assessment. Asymmetric appearance of the oropharynx on the right which appears to be related to tortuosity of the right internal carotid artery. CT chest with contrast performed on 01/13/2023 showed large ill-defined mass lesion in the right lower lobe extending into the right middle lobe with adjacent consolidation. Innumerable satellite nodules seen throughout the right lower and middle lobes. Subcarinal lymph node measuring 1.7 cm. Interval History Interval history: Patient is here in follow-up and cycle 2. He tolerated the 1st treatment quite well but developed acneiform rash over his right neck. He denies any other complaints such as fatigue, nausea, cough or shortness of breath. He reports improvement in his cough and shortness of breath. No headache or dizziness. Rash on his neck is not painful or itchy. [facility] Medical History: Medical History (Last Reviewed 12/31/22 @ 10:44 by Jackie Jaquez [facility]) Patient denies medical problems Family History: Family History (Last Reviewed 01/13/23 @ 15:01 by Renée Guido) Brother Diabetes mellitus Father Lung cancer Mother Stroke Surgical History: Surgical History (Last Reviewed 01/13/23 @ 15:01 by Renée Guido) History of tonsillectomy History of tonsillectomy Social History: Social History (Last Reviewed 01/13/23 @ 15:01 by Renée Guido) Living Situation History: Household Members: Spouse Housing: House Do you presently have visiting nurse or other home services: No Alcohol History Details: 1. How often do you have a drink containing alcohol?: a. Never Tobacco History: Patient Tobacco Use Status: Former Tobacco user Tobacco use type: Cigarette Years Smoked: quit smoking 6 months ago e-Cigarette/Vaping Use: Former Use Second Hand Smoke Exposure: No Substance Use History: Use of substances other than those prescribed or required for medical reasons : No Domestic Abuse History: Have you been hit, kicked, punched, or otherwise hurt by someone within the past year? If so, by whom?: No Do you feel safe in your current relationship?: Yes Homicidal Assessment: Do you have thoughts of harming others: None Do you have a plan to hurt others: No Plan Do you have the means to hurt others: No Nutrition Assessment: Recently lost weight without trying: No Occupation Assessmet: service: No Current occupational status: retired Current occupational exposures/hazards: No Home Medications and Allergies Current Medications: Current Medications Acetaminophen (Acetaminophen 325 Mg Tablet) 650 mg PO ONCE URI Stop: 02/19/23 23:59 Last Admin: 02/19/23 08:53 Dose: 650 mg Diphenhydramine HCl (Diphenhydramine Hcl 50 Mg/Ml Vial) 25 mg IVPUSH ONCE URI Stop: 02/19/23 23:59 Last Admin: 02/19/23 08:53 Dose: 25 mg Famotidine (Famotidine/Pf 20 Mg/2 Ml Vial) 20 mg IVPUSH ONCE URI Stop: 02/19/23 23:59 Last Admin: 02/19/23 08:53 Dose: 20 mg Heparin Sodium (Porcine) (Heparin Sodium,Porcine Flush 500 Unit/5 Ml Syringe) 500 unit IVFLUSH ONCE URI Stop: 02/19/23 23:59 Dexamethasone Sodium Phosphate (Decadron) 12 mg in 50 mls @ 200 mls/hr IV ONCE URI Stop: 02/19/23 23:59 Last Admin: 02/19/23 08:57 Dose: 200 mls/hr Fosaprepitant 150 mg/ Sodium (Chloride) 150 mls @ 300 mls/hr IV ONCE URI Stop: 02/19/23 23:59 Last Admin: 02/19/23 08:57 Dose: 300 mls/hr Ondansetron HCl (Zofran) 16 mg in 50 mls @ 200 mls/hr IV ONCE URI Stop: 02/19/23 23:59 Last Admin: 02/19/23 08:57 Dose: 200 mls/hr Carboplatin 500 mg/ Sodium (Chloride) 300 mls @ 600 mls/hr IV ONCE URI Stop: 02/19/23 23:59 Paclitaxel 390 mg/ Sodium (Chloride) 565 mls @ 188.333 mls/hr IV ONCE URI Stop: 02/19/23 23:59 Pembrolizumab 200 mg/ Sodium (Chloride) 58 mls @ 116 mls/hr IV ONCE URI Stop: 02/19/23 23:59 Home Medications Medication Instructions Recorded Confirmed Type ezetimibe 10 mg tablet (Zetia) 10 mg PO DAILY 12/21/22 02/19/23 History Allergies Allergy/AdvReac Type Severity Reaction Status Date / Time pollen extracts Allergy sneezing Verified 02/19/23 09:08 Exam Vital signs: Vital Signs Temp 98.5 F 02/19/23 08:26 Pulse 86 02/19/23 08:26 Resp 18 02/19/23 08:26 BP 186/86 H 02/19/23 08:26 Pulse Ox 97 02/19/23 08:26 O2 Del Method Room Air 02/19/23 08:26 Intake & Output 02/18/23 02/19/23 02/19/23 18:59 06:59 18:59 Other: Weight 80.5 kg [place] Weight in Grams 6[address]15 Weight 80.5 kg BMI result Body Mass Index 27.8 - Constitutional Present: no acute distress - Routine HEENT Exam Head: Present: normal inspection - Routine Neck Exam Present: lymphadenopathy - Routine Respiratory Exam Present: CTAB. Absent: accessory muscle use - Routine Cardiovascular Exam Cardiovascular: Present: RRR, S1, S2 - Routine Abdominal Exam Present: soft. Absent: mass - Routine Extremities Exam Absent: joint swelling - Routine Skin Exam Present: intact. Absent: cyanosis - Routine Neurological Exam Present: alert, oriented X3 Data - Labs CBC & Chem 7: 02/18/23 08:42 02/18/23 08:42 Assessment and Plan Patient Active problem list reviewed?: Yes (1) Mass of lateral neck Status: Acute Assessment and plan: 1. This is a 67-year-old male, presenting with metastatic non-small cell lung cancer diagnosed in December 2022, right lower lobe primary. Presented with left neck adenopathy, core biopsy of left cervical node performed 12/28/2022 showed poorly differentiated squamous cell carcinoma. Molecular studies showed PDL1 CPS of 25%, TPS 20%, TMB 3.2 m/mol, MSI stable. Protonet 648 gene panel showed no potentially actionable or biologically relevant pathogenic variants. PET-CT performed at [facility] on 01/25/2023 showed intensely hypermetabolic necrotic mass replacing right lower lobe consistent with primary lung cancer. Minimally hypermetabolic nodules in bilateral upper lobes, hypermetabolic left cervical and subcarinal lymph nodes, 1.3 cm lytic lesion at T3 suspicious for metastasis as well as left adrenal gland uptake suspicious for metastatic d isease. Brain MRI performed 12/29/2022 showed heterogenously enhancing lesions involving right precentral gyrus and left posterior temporal lobe worrisome for intracranial metastatic disease. No midline shift. Lesion in the left posterior temporal lobe measuring 1 cm and 1.4 cm in the right precentral gyrus which was associated with small margin of edema. He was seen by Dr. Kathleen for radiation oncology. For now he will be monitored closely as he is being started on systemic chemo/immunotherapy, he is recommended repeat brain MRI in 4-6 weeks. He started treatment on 01/29/2023, carboplatin/Taxol and pembrolizumab every 3 weeks. He reports improvement in his cough and shortness of breath. Proceed with cycle 2 today. 2. There is a slightly nodular rash on the right side of his neck. It is not painful. This is probably related to pembrolizumab. He has been prescribed hydrocortisone cream 2.5% apply topically 2 to 3 times a day. He was advised to call if this got any worse. Follow-up in 3 weeks. - Time Spent With Patient Time Spent with Patient (in minutes): 20
--- NOTE | 2023-02-19 15:07 | MHC.HEMONC ---
Addendum entered by Palma Perla RN 02/19/23 16:17: Neulasta Onpro attached to right posterior arm-instructed to remove Neulasta Onpro at 1830 on 02/20/23-educational booklet given on Neulasta Onpro-instructed to call with any questions Original Note: Pt here for C2D1 Carboplatin/Paclitaxel/Pembrolizumab. Labs drawn yesterday reviewed-okay to receive treatment today. Raised red rash noted on right chin-denies itch at site, states has intermittent fatigue and flu like symptoms after initial chemotherapy. Dr Bourne into see pt-viewed rash. #22 angio inserted in left forearm with blood return noted. Pre medicated with emend, tylenol, benadryl, pepcid, dexamethasone, zofran. Pembrolizumab/Carboplatin/Paclitaxel given as ordered-tolerated well. Peripheral IV removed-no edema or redness at site after removal of IV. Instructed to call department with any concerns, questions, or post IV insertion redness. Reminded to take dexamethasone for next 2 days twice daily-verbalizes understanding. Discharge packet given
[2023-02-19] MEDS: Pegfilgrastim Onpro 6 MG/0.6 ML SYR.W..INJ SUBCUT (15:34)
[2023-03-11 08:15] LABS: MANUAL DIFF FLAG NO
[2023-03-11 08:23] LABS: Basophils Absolute Auto 0.1 X10*3/uL (0.0-0.2); Basophils Percent Auto 0.4 % (0-2); Eosinophils Absolute Auto 0.1 X10*3/uL (0.0-0.4); Eosinophils Percent Auto 0.9 % (0-4); Hematocrit 39.6 % (42.0-52.0); Hemoglobin 13.4 g/dl (14.0-18.0); Imm Gran Abs Auto 0.18 X10*3/uL (0.00-0.03); Imm Gran Pct Auto 1.3 % (0.0-0.4); Lymphocytes Absolute Auto 1.6 X10*3/uL (1.2-4.9); Lymphocytes Percent Auto 11.6 % (20-40); Mean Corpuscular HGB Conc 33.8 g/dl (31.0-36.0); Mean Corpuscular Volume 88.6 fL (80.0-98.0); Mean Platelet Volume 8.4 fL (9.4-12.4); Monocytes Absolute Auto 1.1 X10*3/uL (0.1-1.2); Monocytes Percent Auto 8.4 % (2-11); Neutrophils Absolute Auto 10.3 x10*3/uL (2.0-8.3); Neutrophils Percent Auto 77.4 % (45-73); Platelet Count 364 X10*3/uL (160-400); Red Blood Count 4.47 X10*6/uL (4.60-5.80); Red Cell Distribution Width 16.8 % (11.0-16.0); White Blood Count 13.4 X10*3/uL (4.8-10.8)
[2023-03-11 08:50] LABS: Alanine Aminotransferase 17 U/L (0-40); Albumin Level 4.2 g/dL (3.5-5.0); Alkaline Phosphatase 100 U/L (39-117); Anion Gap 11 (12-20); Aspartate Amino Transferase 12 U/L (5-37); Bilirubin Total 0.5 mg/dL (0.0-1.0); Blood Urea Nitrogen 20 mg/dL (9-16); Calcium 10.4 mg/dL (8.4-10.2); Carbon Dioxide 26 mmol/L (22-29); Chloride 103 mmol/L (96-108); Creatinine Clr Calc Pharmacy 83.3; Estimated Glomerular Filt Rate > 60; Glucose Random 148 mg/dL (60-115); Potassium 4.3 mmol/L (3.3-5.1); Sodium 136 mmol/L (135-145); Total Protein 7.6 g/dL (6.5-8.0)
[2023-03-11 08:59] LABS: HBS Num1 0.17 mIU/mL (0-7.99); HBc Num1 0.19 S/CO (0.00-0.79); HBsAGNum1 0.43 S/CO (0.00-0.99); Hepatitis B Core Antibody Nonreactive (Nonreactive); Hepatitis B Surface Antigen Negative (Negative); ~Hepatitis B Surface Antibody NONREACTIVE (Nonreactive)
[2023-03-11 09:04] LABS: Thyroid Stimulating Hormone 0.97 uIU/mL (0.32-4.0)
--- NOTE | 2023-03-11 09:49 | MHC.HEMONC ---
Pt here for pre chemo lab draw. Blood drawn by medical administrative specialist-specimen to lab
[2023-03-12 08:04] VITALS: BP 155/72; PULSE 84; RESP 18; TEMP 36.9; O2SAT 97; BMI 28.0
[2023-03-12] MEDS: diphenhydrAMINE HCL 50 MG/ML VIAL 25 MG IVPUSH (08:22)
[2023-03-12] MEDS: Acetaminophen 325 MG TABLET 650 MG PO (08:22)
[2023-03-12] MEDS: Famotidine/PF 20 MG/2 ML VIAL IVPUSH (08:22)
[2023-03-12] MEDS: dexAMETHasone sod phosphate/NS 12 MG/50 ML PIGGYBACK 200 MG IV (08:23)
[2023-03-12] MEDS: Fosaprepitant Dimeglumine 150 MG in 0.9 % Sodium Chloride 145 ML 300 MG IV (10:00)
--- NOTE | 2023-03-12 10:05 | MHC.HEMONC ---
pt offer no new complaint or concern, rash improving. repeat mri of brain ordered by dr wheeler
[2023-03-12] MEDS: Pegfilgrastim Onpro 6 MG/0.6 ML SYR.W..INJ SUBCUT (14:49)
[2023-04-01 08:17] LABS: MANUAL DIFF FLAG NO
[2023-04-01 08:21] LABS: Basophils Absolute Auto 0.1 X10*3/uL (0.0-0.2); Basophils Percent Auto 0.5 % (0-2); Eosinophils Absolute Auto 0.1 X10*3/uL (0.0-0.4); Eosinophils Percent Auto 0.6 % (0-4); Hemoglobin 11.9 g/dl (14.0-18.0); Imm Gran Abs Auto 0.17 X10*3/uL (0.00-0.03); Imm Gran Pct Auto 1.3 % (0.0-0.4); Lymphocytes Absolute Auto 1.4 X10*3/uL (1.2-4.9); Lymphocytes Percent Auto 11.1 % (20-40); Mean Corpuscular Hemoglobin 30.5 pg (27.0-33.0); Mean Corpuscular Volume 89.7 fL (80.0-98.0); Mean Platelet Volume 8.7 fL (9.4-12.4); Monocytes Percent Auto 8.2 % (2-11); Neutrophils Percent Auto 78.3 % (45-73); Platelet Count 307 X10*3/uL (160-400); Red Cell Distribution Width 17.7 % (11.0-16.0); White Blood Count 12.8 X10*3/uL (4.8-10.8)
[2023-04-01 08:43] LABS: Alanine Aminotransferase 12 U/L (0-40); Albumin Level 4.1 g/dL (3.5-5.0); Alkaline Phosphatase 88 U/L (39-117); Anion Gap 11 (12-20); Aspartate Amino Transferase 11 U/L (5-37); Bilirubin Total 0.4 mg/dL (0.0-1.0); Blood Urea Nitrogen 18 mg/dL (9-16); Calcium 10.1 mg/dL (8.4-10.2); Carbon Dioxide 24 mmol/L (22-29); Chloride 107 mmol/L (96-108); Creatinine Clr Calc Pharmacy 94.8; Estimated Glomerular Filt Rate > 60; Glucose Random 142 mg/dL (60-115); Potassium 3.9 mmol/L (3.3-5.1); Sodium 138 mmol/L (135-145); Total Protein 7.5 g/dL (6.5-8.0)
[2023-04-01 08:57] LABS: Thyroid Stimulating Hormone 0.82 uIU/mL (0.32-4.0)
--- NOTE | 2023-04-02 08:22 | P.PNHO-ONC_ITS ---
Medical Summary - Medical Summary Date of Service: 04/02/23 Chief complaint: Follow-up and scheduled treatment Primary Care Provider: Wayne Galdamez MD Medical Summary: Diagnosis: Left neck lymphadenopathy November 2022, squamous cell carcinoma. Patient presented for a routine physical in November 2022 and was noted to have swollen left neck lymph adenopathy. CT neck performed 12/08/2022 showed pathologically enlarged level 2 B lymph node in the left and a smaller left level IIB lymph node consistent with metastatic lymphadenopathy. 7 mm round enhancing focus in the left temporal lobe, MRI of brain with and without contrast was recommended. A 3.6 cm ground-glass opacity in the right upper lobe and multiple mediastinal lymph nodes with a right pleural effusion versus pleural thickening, recommend CT chest with contrast for further assessment. Asymmetric appearance of the oropharynx on the right which appears to be related to tortuosity of the right internal carotid artery. CT chest with contrast performed on 01/13/2023 showed large ill-defined mass lesion in the right lower lobe extending into the right middle lobe with adjacent consolidation. Innumerable satellite nodules seen throughout the right lower and middle lobes. Subcarinal lymph node measuring 1.7 cm. Core biopsy of left cervical node performed 12/28/2022 showed poorly differentiated squamous cell carcinoma. Molecular studies showed PDL1 CPS of 25%, TPS 20%, TMB 3.2 m/mol, MSI stable. Appriss 648 gene panel showed no potentially actionable or biologically relevant pathogenic variants. PET-CT performed at [place] on 01/25/2023 showed intensely hypermetabolic necrotic mass replacing right lower lobe consistent with primary lung cancer. Minimally hypermetabolic nodules in bilateral upper lobes, hypermetabolic left cervical and subcarinal lymph nodes, 1.3 cm lytic lesion at T3 suspicious for metastasis as well as left adrenal gland uptake suspicious for metastatic disease. Brain MRI performed 12/29/2022 showed heterogenously enhancing lesions involving right precentral gyrus and left posterior temporal lobe worrisome for intracranial metastatic disease. No midline shift. Lesion in the left posterior temporal lobe measuring 1 cm and 1.4 cm in the right precentral gyrus which was associated with small margin of edema. He was seen by Dr. Kathleen for radiation oncology. Interval History Interval history: Patient is here in follow-up and cycle 2. He tolerated the 1st treatment quite well but developed acneiform rash over his right neck. He denies any other complaints such as fatigue, nausea, cough or shortness of breath. He reports improvement in his cough and shortness of breath. No headache or dizziness. Rash on his neck is not painful or itchy. [facility] Medical History: Medical History (Last Reviewed 12/31/22 @ 10:44 by Jackie Jaquez [facility]) Patient denies medical problems Family History: Family History (Last Reviewed 01/13/23 @ 15:01 by Renée Guido) Brother Diabetes mellitus Father Lung cancer Mother Stroke Surgical History: Surgical History (Last Reviewed 01/13/23 @ 15:01 by Renée Guido) History of tonsillectomy History of tonsillectomy Social History: Social History (Last Reviewed 01/13/23 @ 15:01 by Renée Guido) Living Situation History: Household Members: Spouse Housing: House Do you presently have visiting nurse or other home services: No Alcohol History Details: 1. How often do you have a drink containing alcohol?: a. Never Tobacco History: Patient Tobacco Use Status: Former Tobacco user Tobacco use type: Cigarette Years Smoked: quit smoking 6 months ago e-Cigarette/Vaping Use: Former Use Second Hand Smoke Exposure: No Substance Use History: Use of substances other than those prescribed or required for medical reasons : No Domestic Abuse History: Have you been hit, kicked, punched, or otherwise hurt by someone within the past year? If so, by whom?: No Do you feel safe in your current relationship?: Yes Homicidal Assessment: Do you have thoughts of harming others: None Do you have a plan to hurt others: No Plan Do you have the means to hurt others: No Nutrition Assessment: Recently lost weight without trying: No Occupation Assessmet: service: No Current occupational status: retired Current occupational exposures/hazards: No Home Medications and Allergies Current Medications: Current Medications Acetaminophen (Acetaminophen 325 Mg Tablet) 650 mg PO ONCE URI Stop: 04/02/23 23:59 Diphenhydramine HCl (Diphenhydramine Hcl 50 Mg/Ml Vial) 25 mg IVPUSH ONCE URI Stop: 04/02/23 23:59 Famotidine (Famotidine/Pf 20 Mg/2 Ml Vial) 20 mg IVPUSH ONCE URI Stop: 04/02/23 23:59 Heparin Sodium (Porcine) (Heparin Sodium,Porcine Flush 500 Unit/5 Ml Syringe) 500 unit IVFLUSH ONCE URI Stop: 04/02/23 23:59 Dexamethasone Sodium Phosphate (Decadron) 12 mg in 50 mls @ 200 mls/hr IV ONCE URI Stop: 04/02/23 23:59 Fosaprepitant 150 mg/ Sodium (Chloride) 150 mls @ 300 mls/hr IV ONCE URI Stop: 04/02/23 23:59 Ondansetron HCl (Zofran) 16 mg in 50 mls @ 200 mls/hr IV ONCE URI Stop: 04/02/23 23:59 Home Medications Medication Instructions Recorded Confirmed Type ezetimibe 10 mg tablet (Zetia) 10 mg PO DAILY 12/21/22 02/19/23 History Allergies Allergy/AdvReac Type Severity Reaction Status Date / Time pollen extracts Allergy sneezing Verified 02/19/23 09:08 Exam Vital signs: Vital Signs Temp 98.5 F 03/12/23 08:04 Pulse 84 03/12/23 08:04 Resp 18 03/12/23 08:04 BP 155/72 H 03/12/23 08:04 Pulse Ox 97 03/12/23 08:04 O2 Del Method Room Air 03/12/23 08:04 Weight 81.2 kg BMI result Body Mass Index 28.0 - Constitutional Present: no acute distress - Routine HEENT Exam Head: Present: normal inspection - Routine Neck Exam Present: lymphadenopathy - Routine Respiratory Exam Present: CTAB. Absent: accessory muscle use - Routine Cardiovascular Exam Cardiovascular: Present: RRR, S1, S2 - Routine Abdominal Exam Present: soft. Absent: mass - Routine Extremities Exam Absent: joint swelling - Routine Skin Exam Present: intact. Absent: cyanosis - Routine Neurological Exam Present: alert, oriented X3 Data - Labs CBC & Chem 7: 04/01/23 08:16 04/01/23 08:16 Assessment and Plan Patient Active problem list reviewed?: Yes (1) Mass of lateral neck Status: Acute Assessment and plan: 1. This is a 67-year-old male, presenting with metastatic non-small cell lung cancer diagnosed in December 2022, right lower lobe primary. Presented with left neck adenopathy, core biopsy of left cervical node performed 12/28/2022 showed poorly differentiated squamous cell carcinoma. Molecular studies showed PDL1 CPS of 25%, TPS 20%, TMB 3.2 m/mol, MSI stable. Liiiikepus xT 648 gene panel showed no potentially actionable or biologically relevant pathogenic variants. Brain MRI performed 12/29/2022 showed heterogenously enhancing lesions involving right precentral gyrus and left posterior temporal lobe worrisome for intracranial metastatic disease. No midline shift. Lesion in the left posterior temporal lobe measuring 1 cm and 1.4 cm in the right precentral gyrus which was associated with small margin of edema. He was seen by Dr. Kathleen for radiation oncology. Repeat brain performed in March 2023 showed right precentral gyrus lesion to have decreased in size resolution of edema left lesion grew in size slightly. He is being monitored. He has no symptoms. He started treatment on 01/29/2023, carboplatin/Taxol and pembrolizumab every 3 weeks. He reports improvement in his cough and shortness of breath. Proceed with cycle 4 today. 2. There is a slightly nodular rash on the right side of his neck.This is secondary to pembrolizumab. He has been prescribed hydrocortisone cream 2.5% apply topically 2 to 3 times a day. Has been improvement. Repeat PET-CT next month. Follow-up in 3 weeks. - Time Spent With Patient Time Spent with Patient (in minutes): 20
[2023-04-02 08:43] VITALS: BP 170/77; PULSE 80; RESP 16; TEMP 36.6; O2SAT 98; BMI 28.7
[2023-04-02] MEDS: Acetaminophen 325 MG TABLET 650 MG PO (09:35)
[2023-04-02] MEDS: dexAMETHasone sod phosphate/NS 12 MG/50 ML PIGGYBACK 200 MG IV (09:35)
[2023-04-02] MEDS: Famotidine/PF 20 MG/2 ML VIAL IVPUSH (09:36)
[2023-04-02] MEDS: diphenhydrAMINE HCL 50 MG/ML VIAL 25 MG IVPUSH (09:36)
[2023-04-02] MEDS: Fosaprepitant Dimeglumine 150 MG in 0.9 % Sodium Chloride 145 ML 300 MG IV (10:48)
[2023-04-02] MEDS: Pegfilgrastim Onpro 6 MG/0.6 ML SYR.W..INJ SUBCUT (16:24)
--- NOTE | 2023-04-02 16:38 | MHC.HEMONC ---
C4D1: Carbo/Pembro/Paclitaxel (3hr) Labs obtained day prior and reviewed. Patient reports feeling well. Denies side effects. Patient accompanied by . #22 angio placed to right hand with positive blood return. Pre-medicated with Tylenol 650mg PO, Dex 12mg IV, Benadryl 25mg IV, Pepcid 20mg IV, Zofran 16mg IV, and Emend 150mg IV. All infusions well tolerated with no signs of reaction noted. Follow up with Dr. Bourne today. Patient will continue with Pembrolizumab [id number]. Neulasta on Pro administered to right upper arm- patient to remove at 28hr saira tomorrow. Patient verbalizes understanding. IV removed- catheter intact. No redness or swelling noted to site. Discharge packet provided.
[2023-04-22 08:17] LABS: MANUAL DIFF FLAG NO
[2023-04-22 08:28] LABS: Basophils Absolute Auto 0.1 X10*3/uL (0.0-0.2); Basophils Percent Auto 0.5 % (0-2); Eosinophils Absolute Auto 0.1 X10*3/uL (0.0-0.4); Eosinophils Percent Auto 0.6 % (0-4); Hematocrit 36.2 % (42.0-52.0); Imm Gran Abs Auto 0.22 X10*3/uL (0.00-0.03); Imm Gran Pct Auto 1.6 % (0.0-0.4); Lymphocytes Absolute Auto 1.5 X10*3/uL (1.2-4.9); Lymphocytes Percent Auto 11.2 % (20-40); Mean Corpuscular HGB Conc 33.1 g/dl (31.0-36.0); Mean Corpuscular Hemoglobin 31.3 pg (27.0-33.0); Mean Corpuscular Volume 94.3 fL (80.0-98.0); Mean Platelet Volume 8.8 fL (9.4-12.4); Monocytes Absolute Auto 1.2 X10*3/uL (0.1-1.2); Monocytes Percent Auto 8.7 % (2-11); NRBC Pct Auto 0.1 /100WBC (0.0-0.2); Neutrophils Absolute Auto 10.6 x10*3/uL (2.0-8.3); Neutrophils Percent Auto 77.4 % (45-73); Platelet Count 337 X10*3/uL (160-400); Red Blood Count 3.84 X10*6/uL (4.60-5.80); Red Cell Distribution Width 17.6 % (11.0-16.0); White Blood Count 13.6 X10*3/uL (4.8-10.8)
[2023-04-22 08:48] LABS: Alanine Aminotransferase 11 U/L (0-40); Albumin Level 4.2 g/dL (3.5-5.0); Alkaline Phosphatase 102 U/L (39-117); Anion Gap 15 (12-20); Aspartate Amino Transferase 12 U/L (5-37); Bilirubin Total 0.4 mg/dL (0.0-1.0); Blood Urea Nitrogen 17 mg/dL (9-16); Calcium 10.6 mg/dL (8.4-10.2); Carbon Dioxide 26 mmol/L (22-29); Chloride 102 mmol/L (96-108); Creatinine Clr Calc Pharmacy 79.8; Estimated Glomerular Filt Rate > 60; Glucose Random 137 mg/dL (60-115); Potassium 4.7 mmol/L (3.3-5.1); Sodium 138 mmol/L (135-145); Total Protein 7.8 g/dL (6.5-8.0)
[2023-04-22 09:03] LABS: Thyroid Stimulating Hormone 1.09 uIU/mL (0.32-4.0)
--- NOTE | 2023-04-22 09:16 | MHC.HEMONC ---
Pt here for pre chemo lab draw. Blood drawn by ceramic artist-specimen to lab
[2023-04-23 11:13] VITALS: BP 164/77; PULSE 86; RESP 18; TEMP 36.7; O2SAT 96; BMI 28.7
[2023-04-23] MEDS: Acetaminophen 325 MG TABLET 650 MG PO (11:26)
[2023-04-23] MEDS: diphenhydrAMINE HCL 25 MG CAPSULE PO (11:26)
[2023-04-23] MEDS: Ondansetron ODT 8 MG TAB.RAPDIS TRANSLINGU (11:26)
--- NOTE | 2023-04-23 15:36 | MHC.HEMONC ---
C5: Pemrbo. Labs completed yesterday and reviewed. Patient reports feeling well. Denies side effects. #22 angio placed to left lower arm with positive blood return by Pal[facility] SOMMERS. Pre-medicated with Tylenol 650mg PO, Zofran 8mg PO, Benadryl 25mg PO. Pembro infused and well tolerated. IV removed- catheter intact. No redness or swelling noted to site. Patient declined discharge packet- uses patient portal. Patient to follow up with Dr. Bourne with next chemotherapy.
[2023-05-13 08:46] LABS: MANUAL DIFF FLAG NO
[2023-05-13 08:52] LABS: Basophils Absolute Auto 0.1 X10*3/uL (0.0-0.2); Basophils Percent Auto 0.6 % (0-2); Eosinophils Absolute Auto 0.2 X10*3/uL (0.0-0.4); Eosinophils Percent Auto 3.1 % (0-4); Imm Gran Abs Auto 0.03 X10*3/uL (0.00-0.03); Imm Gran Pct Auto 0.4 % (0.0-0.4); Lymphocytes Absolute Auto 1.4 X10*3/uL (1.2-4.9); Lymphocytes Percent Auto 18.4 % (20-40); Mean Corpuscular HGB Conc 32.6 g/dl (31.0-36.0); Mean Corpuscular Hemoglobin 31.3 pg (27.0-33.0); Mean Corpuscular Volume 96.2 fL (80.0-98.0); Mean Platelet Volume 8.5 fL (9.4-12.4); Monocytes Absolute Auto 0.7 X10*3/uL (0.1-1.2); Monocytes Percent Auto 8.9 % (2-11); Neutrophils Absolute Auto 5.4 x10*3/uL (2.0-8.3); Neutrophils Percent Auto 68.6 % (45-73); Platelet Count 271 X10*3/uL (160-400); Red Blood Count 4.47 X10*6/uL (4.60-5.80); White Blood Count 7.8 X10*3/uL (4.8-10.8)
--- NOTE | 2023-05-13 08:53 | MHC.HEMONC ---
Pt here for pre chemo lab draw. Blood drawn by telephone engineer-specimen to lab.
[2023-05-13 09:12] LABS: Alanine Aminotransferase 12 U/L (0-40); Albumin Level 4.4 g/dL (3.5-5.0); Alkaline Phosphatase 62 U/L (39-117); Anion Gap 14 (12-20); Aspartate Amino Transferase 14 U/L (5-37); Bilirubin Total 0.5 mg/dL (0.0-1.0); Blood Urea Nitrogen 18 mg/dL (9-16); Calcium 10.3 mg/dL (8.4-10.2); Carbon Dioxide 26 mmol/L (22-29); Chloride 104 mmol/L (96-108); Creatinine Clr Calc Pharmacy 78.9; Estimated Glomerular Filt Rate > 60; Glucose Random 119 mg/dL (60-115); Potassium 4.6 mmol/L (3.3-5.1); Sodium 139 mmol/L (135-145)
[2023-05-14 10:56] VITALS: BP 147/76; PULSE 84; RESP 18; TEMP 36.3; O2SAT 98; BMI 28.9
--- NOTE | 2023-05-14 11:03 | PM.HEMONCPN ---
Medical Summary - Medical Summary Date of Service: 05/14/23 Chief complaint: follow-up and scheduled treatment Primary Care Provider: Wayne Galdamez MD Medical Summary: Diagnosis: Left neck lymphadenopathy November 2022, squamous cell carcinoma. Patient presented for a routine physical in November 2022 and was noted to have swollen left neck lymph adenopathy. CT neck performed 12/08/2022 showed pathologically enlarged level 2 B lymph node in the left and a smaller left level IIB lymph node consistent with metastatic lymphadenopathy. 7 mm round enhancing focus in the left temporal lobe, MRI of brain with and without contrast was recommended. A 3.6 cm ground-glass opacity in the right upper lobe and multiple mediastinal lymph nodes with a right pleural effusion versus pleural thickening, recommend CT chest with contrast for further assessment. Asymmetric appearance of the oropharynx on the right which appears to be related to tortuosity of the right internal carotid artery. CT chest with contrast performed on 01/13/2023 showed large ill-defined mass lesion in the right lower lobe extending into the right middle lobe with adjacent consolidation. Innumerable satellite nodules seen throughout the right lower and middle lobes. Subcarinal lymph node measuring 1.7 cm. Core biopsy of left cervical node performed 12/28/2022 showed poorly differentiated squamous cell carcinoma. Molecular studies showed PDL1 CPS of 25%, TPS 20%, TMB 3.2 m/mol, MSI stable. Transmetrics 648 gene panel showed no potentially actionable or biologically relevant pathogenic variants. PET-CT performed at [facility] on 01/25/2023 showed intensely hypermetabolic necrotic mass replacing right lower lobe consistent with primary lung cancer. Minimally hypermetabolic nodules in bilateral upper lobes, hypermetabolic left cervical and subcarinal lymph nodes, 1.3 cm lytic lesion at T3 suspicious for metastasis as well as left adrenal gland uptake suspicious for metastatic disease. Brain MRI performed 12/29/2022 showed heterogenously enhancing lesions involving right precentral gyrus and left posterior temporal lobe worrisome for intracranial metastatic disease. No midline shift. Lesion in the left posterior temporal lobe measuring 1 cm and 1.4 cm in the right precentral gyrus which was associated with small margin of edema. He was seen by Dr. Kathleen for radiation oncology. Interval History Interval history: Patient is here in follow-up and scheduled treatment. He reports doing well and has no new complaints. He has some rash on his hands and dry skin. He denies any other complaints such as fatigue, nausea, cough or shortness of breath. He reports improvement in his cough and shortness of breath. No headache or dizziness. Review of Systems - Constitutional Reports as per HPI, Denies fatigue, Denies lack of energy, Denies malaise - Cardiovascular Reports no additional cardiovascular complaints - Respiratory Reports no additional respiratory complaints - Gastrointestinal Reports no additional gastrointestinal complaints COUNTS INCLUDE 234 BEDS AT THE [facility] Medical History: Medical History (Last Reviewed 05/05/23 @ 11:50 by STEVIE Orozco) Patient denies medical problems Family History: Family History (Last Reviewed 05/05/23 @ 11:50 by STEVIE Orozco) Brother Diabetes mellitus Father Lung cancer Mother Stroke Surgical History: Surgical History (Last Reviewed 05/05/23 @ 11:50 by STEVIE Orozco) History of tonsillectomy History of tonsillectomy Social History: Social History (Last Reviewed 05/05/23 @ 11:50 by STEVIE Orozco) Living Situation History: Household Members: Spouse Housing: House Do you presently have visiting nurse or other home services: No Alcohol History Details: 1. How often do you have a drink containing alcohol?: a. Never Tobacco History: Patient Tobacco Use Status: Former Tobacco user Tobacco use type: Cigarette Years Smoked: quit smoking 6 months ago e-Cigarette/Vaping Use: Former Use Second Hand Smoke Exposure: No Substance Use History: Use of substances other than those prescribed or required for medical reasons: No Domestic Abuse History: Have you been hit, kicked, punched, or otherwise hurt by someone within the past year? If so, by whom?: No Do you feel safe in your current relationship?: Yes Homicidal Assessment: Do you have thoughts of harming others: None Do you have a plan to hurt others: No Plan Do you have the means to hurt others: No Nutrition Assessment: Recently lost weight without trying: No Occupation Assessmet: service: No Current occupational status: retired Current occupational exposures/hazards: No Home Medications and Allergies Current Medications: Current Medications Acetaminophen (Acetaminophen 325 Mg Tablet) 650 mg PO ONCE URI Stop: 05/14/23 23:59 Diphenhydramine HCl (Diphenhydramine Hcl 25 Mg Capsule) 25 mg PO ONCE URI Stop: 05/14/23 23:59 Heparin Sodium (Porcine) (Heparin Sodium,Porcine Flush 500 Unit/5 Ml Syringe) 500 unit IVFLUSH ONCE URI Stop: 05/14/23 23:59 Pembrolizumab 200 mg/ Sodium (Chloride) 58 mls @ 116 mls/hr IV ONCE URI Stop: 05/14/23 23:59 Ondansetron HCl (Ondansetron Odt 8 Mg Tab.Rapdis) 8 mg TRANSLINGU ONCE URI Stop: 05/14/23 23:59 Home Medications Medication Instructions Recorded Confirmed Type ezetimibe 10 mg tablet (Zetia) 10 mg PO DAILY 12/21/22 05/14/23 History Allergies Allergy/AdvReac Type Severity Reaction Status Date / Time pollen extracts Allergy sneezing Verified 05/05/23 11:50 Exam Vital signs: Vital Signs Temp 98.0 F 04/23/23 11:13 Pulse 86 04/23/23 11:13 Resp 18 04/23/23 11:13 BP 164/77 H 04/23/23 11:13 Pulse Ox 96 04/23/23 11:13 O2 Del Method Room Air 04/23/23 11:13 Weight 83.1 kg BMI result Body Mass Index 28.7 - Constitutional Present: no acute distress - Routine HEENT Exam Head: Present: normal inspection - Routine Neck Exam Present: lymphadenopathy - Routine Respiratory Exam Present: CTAB. Absent: accessory muscle use - Routine Cardiovascular Exam Cardiovascular: Present: RRR, S1, S2 - Routine Abdominal Exam Present: soft. Absent: mass - Routine Extremities Exam Absent: joint swelling - Routine Skin Exam Present: intact. Absent: cyanosis - Routine Neurological Exam Present: alert, oriented X3 Data - Labs CBC & Chem 7: 05/13/23 08:44 05/13/23 08:44 Assessment and Plan Patient Active problem list reviewed?: Yes (1) Mass of lateral neck Status: Chronic Assessment and plan: 1. This is a 67-year-old male, presenting with metastatic non-small cell lung cancer diagnosed in December 2022, right lower lobe primary. Presented with left neck adenopathy, core biopsy of left cervical node performed 12/28/2022 showed poorly differentiated squamous cell carcinoma. Molecular studies showed PDL1 CPS of 25%, TPS 20%, TMB 3.2 m/mol, MSI stable. [employer]metrics 648 gene panel showed no potentially actionable or biologically relevant pathogenic variants. Brain MRI performed 12/29/2022 showed heterogenously enhancing lesions involving right precentral gyrus and left posterior temporal lobe worrisome for intracranial metastatic disease. No midline shift. Lesion in the left posterior temporal lobe measuring 1 cm and 1.4 cm in the right precentral gyrus which was associated with small margin of edema. He was seen by Dr. Kathleen for radiation oncology. Repeat brain performed in March 2023 showed right precentral gyrus lesion to have decreased in size resolution of edema left lesion grew in size slightly. He is being monitored. He has no symptoms. He started treatment on 01/29/2023, carboplatin/Taxol and pembrolizumab every 3 weeks. He finished 4 cycles of combination therapy and is now on single agent pembrolizumab as maintenance. 2. Skin toxicity secondary to pembrolizumab. This is relatively mild. He has been prescribed hydrocortisone cream 2.5% apply topically 2 to 3 times a day. PET-CT has been ordered. Follow-up in 3 weeks. - Time Spent With Patient Time Spent with Patient (in minutes): 15
[2023-05-14] MEDS: Ondansetron ODT 8 MG TAB.RAPDIS TRANSLINGU (11:23)
[2023-05-14] MEDS: Acetaminophen 325 MG TABLET 650 MG PO (11:23)
[2023-05-14] MEDS: diphenhydrAMINE HCL 25 MG CAPSULE PO (11:23)
--- NOTE | 2023-05-14 12:47 | MHC.HEMONC ---
Pt here for C6D1 Pembrolizumab. Labs drawn yesterday reviewed-okay to receive treatment today. Pt states he feels well today. Sporadic rash noted on palms of hands and soles of feet. Pt denies itch. States he has constipation for one day after treatment. #24 angio inserted in right wrist with blood return noted. Pre medicated with tylenol, benadryl,zofran. Pembrolizumab given as ordered-tolerated well. Dr Bourne into see pt. Peripheral IV removed-no edema or redness at site after removal of IV. Next appointment scheduled. Discharge packet given. Declines wheelchair for discharge- with patient. Instructed to call with any questions or concerns
--- NOTE | 2023-05-14 14:23 | HO.HEMONCPA ---
Addendum entered by Taryn Brannon 05/26/23 13:43: Resubit PA in July patient had Pet/CT in January 2023 Addendum entered by Taryn Brannon 05/26/23 09:50: [place] denied PET/CT called [facility] for peer to peer was advised because patient is medicare it follows medicare guidelines so if medicare will pay they will and if medicare does not they will not. Call Ref [phone] spoke to Shahida on 05/26/23 at 9:41 am EST called Merna at [facility] she will look into this. Addendum entered by Taryn Brannon 05/24/23 10:35: Case was denied need to send MRI in for reconsideration Addendum entered by Taryn Brannon 05/20/23 09:14: PA IS REQUIRED FOR [facility] PA PENDING DECISION FROM [place] CASE # [id number] Addendum entered by Khadijah Garrett 05/18/23 11:36: PET/CT SCAN APPT BOOKED ON 05/25/23 at 12:15pm. [facility] CONFIRMED W/ THE PT Original Note: NO PA REQUIRED FOR PET/CT SCAN SKULL TO THIGH [id number] SENT TO [facility] FOR SCHEDULING
[2023-06-10 08:13] LABS: MANUAL DIFF FLAG NO
[2023-06-10 08:18] LABS: Basophils Absolute Auto 0.1 X10*3/uL (0.0-0.2); Basophils Percent Auto 0.6 % (0-2); Eosinophils Absolute Auto 0.3 X10*3/uL (0.0-0.4); Eosinophils Percent Auto 3.6 % (0-4); Hematocrit 42.3 % (42.0-52.0); Hemoglobin 14.3 g/dl (14.0-18.0); Imm Gran Abs Auto 0.05 X10*3/uL (0.00-0.03); Imm Gran Pct Auto 0.6 % (0.0-0.4); Lymphocytes Absolute Auto 1.4 X10*3/uL (1.2-4.9); Lymphocytes Percent Auto 15.6 % (20-40); Mean Corpuscular HGB Conc 33.8 g/dl (31.0-36.0); Mean Corpuscular Hemoglobin 30.2 pg (27.0-33.0); Mean Corpuscular Volume 89.4 fL (80.0-98.0); Mean Platelet Volume 8.8 fL (9.4-12.4); Monocytes Absolute Auto 0.9 X10*3/uL (0.1-1.2); Monocytes Percent Auto 10.6 % (2-11); Neutrophils Absolute Auto 6.1 x10*3/uL (2.0-8.3); Platelet Count 304 X10*3/uL (160-400); Red Blood Count 4.73 X10*6/uL (4.60-5.80); Red Cell Distribution Width 13.8 % (11.0-16.0); White Blood Count 8.9 X10*3/uL (4.8-10.8)
[2023-06-10 08:37] LABS: Alanine Aminotransferase 21 U/L (0-40); Albumin Level 4.3 g/dL (3.5-5.0); Alkaline Phosphatase 73 U/L (39-117); Anion Gap 12 (12-20); Aspartate Amino Transferase 16 U/L (5-37); Bilirubin Total 0.5 mg/dL (0.0-1.0); Blood Urea Nitrogen 14 mg/dL (9-16); Calcium 10.3 mg/dL (8.4-10.2); Carbon Dioxide 27 mmol/L (22-29); Chloride 101 mmol/L (96-108); Creatinine Clr Calc Pharmacy 83.7; Estimated Glomerular Filt Rate > 60; Glucose Random 126 mg/dL (60-115); Potassium 4.4 mmol/L (3.3-5.1); Sodium 136 mmol/L (135-145); Total Protein 7.9 g/dL (6.5-8.0)
--- NOTE | 2023-06-10 08:43 | MHC.HEMONC ---
Pt here for pre chemo lab draw. Blood drawn by ophthalmic technician apprentice-specimen to lab
[2023-06-10 08:51] LABS: Thyroid Stimulating Hormone 0.85 uIU/mL (0.32-4.0)
[2023-06-11 11:16] VITALS: BP 137/72; PULSE 91; RESP 18; TEMP 36.8; O2SAT 96; BMI 29.3
[2023-06-11] MEDS: diphenhydrAMINE HCL 25 MG CAPSULE PO (11:45)
[2023-06-11] MEDS: Acetaminophen 325 MG TABLET 650 MG PO (11:45)
[2023-06-11] MEDS: Ondansetron ODT 8 MG TAB.RAPDIS TRANSLINGU (11:51)
--- NOTE | 2023-06-11 12:48 | PM.HEMONCPN ---
Medical Summary - Medical Summary Date of Service: 06/11/23 Chief complaint: Nausea/emesis, mild headache Primary Care Provider: Wayne Galdamez MD Medical Summary: Diagnosis: Left neck lymphadenopathy November 2022, squamous cell carcinoma. Patient presented for a routine physical in November 2022 and was noted to have swollen left neck lymph adenopathy. CT neck performed 12/08/2022 showed pathologically enlarged level 2 B lymph node in the left and a smaller left level IIB lymph node consistent with metastatic lymphadenopathy. 7 mm round enhancing focus in the left temporal lobe, MRI of brain with and without contrast was recommended. A 3.6 cm ground-glass opacity in the right upper lobe and multiple mediastinal lymph nodes with a right pleural effusion versus pleural thickening, recommend CT chest with contrast for further assessment. Asymmetric appearance of the oropharynx on the right which appears to be related to tortuosity of the right internal carotid artery. CT chest with contrast performed on 01/13/2023 showed large ill-defined mass lesion in the right lower lobe extending into the right middle lobe with adjacent consolidation. Innumerable satellite nodules seen throughout the right lower and middle lobes. Subcarinal lymph node measuring 1.7 cm. Core biopsy of left cervical node performed 12/28/2022 showed poorly differentiated squamous cell carcinoma. Molecular studies showed PDL1 CPS of 25%, TPS 20%, TMB 3.2 m/mol, MSI stable. [employer] 648 gene panel showed no potentially actionable or biologically relevant pathogenic variants. PET-CT performed at [facility] on 01/25/2023 showed intensely hypermetabolic necrotic mass replacing right lower lobe consistent with primary lung cancer. Minimally hypermetabolic nodules in bilateral upper lobes, hypermetabolic left cervical and subcarinal lymph nodes, 1.3 cm lytic lesion at T3 suspicious for metastasis as well as left adrenal gland uptake suspicious for metastatic disease. Brain MRI performed 12/29/2022 showed heterogenously enhancing lesions involving right precentral gyrus and left posterior temporal lobe worrisome for intracranial metastatic disease. No midline shift. Lesion in the left posterior temporal lobe measuring 1 cm and 1.4 cm in the right precentral gyrus which was associated with small margin of edema. He was seen by Dr. Kathleen for radiation oncology. Interval History Interval history: Patient is here in follow-up and scheduled treatment. In last 1 week he has had 2 episodes of mild headache associated with nausea and emesis. No other complaints such as fever or chills, cough or shortness of breath. No visual changes focal weakness, numbness or tingling. Review of Systems - Constitutional Reports as per HPI, Denies fatigue, Denies night sweats, Denies poor appetite - Cardiovascular Reports no additional cardiovascular complaints - Respiratory Reports no additional respiratory complaints - Gastrointestinal Reports no additional gastrointestinal complaints [facility] Medical History: Medical History (Last Reviewed 05/05/23 @ 11:50 by STEVIE Orozco) Patient denies medical problems Family History: Family History (Last Reviewed 05/05/23 @ 11:50 by STEVIE Orozco) Brother Diabetes mellitus Father Lung cancer Mother Stroke Surgical History: Surgical History (Last Reviewed 05/05/23 @ 11:50 by STEVIE Orozco) History of tonsillectomy History of tonsillectomy Social History: Social History (Last Reviewed 05/05/23 @ 11:50 by STEVIE Orozco) Living Situation History: Household Members: Spouse Housing: House Do you presently have visiting nurse or other home services: No Alcohol History Details: 1. How often do you have a drink containing alcohol?: a. Never Tobacco History: Patient Tobacco Use Status: Former Tobacco user Tobacco use type: Cigarette Years Smoked: quit smoking 6 months ago e-Cigarette/Vaping Use: Former Use Second Hand Smoke Exposure: No Substance Use History: Use of substances other than those prescribed or required for medical reasons: No Domestic Abuse History: Have you been hit, kicked, punched, or otherwise hurt by someone within the past year? If so, by whom?: No Do you feel safe in your current relationship?: Yes Homicidal Assessment: Do you have thoughts of harming others: None Do you have a plan to hurt others: No Plan Do you have the means to hurt others: No Nutrition Assessment: Recently lost weight without trying: No Occupation Assessmet: service: No Current occupational status: retired Current occupational exposures/hazards: No Home Medications and Allergies Current Medications: Current Medications Acetaminophen (Acetaminophen 325 Mg Tablet) 650 mg PO ONCE URI Stop: 06/11/23 23:59 Last Admin: 06/11/23 11:45 Dose: 650 mg Diphenhydramine HCl (Diphenhydramine Hcl 25 Mg Capsule) 25 mg PO ONCE URI Stop: 06/11/23 23:59 Last Admin: 06/11/23 11:45 Dose: 25 mg Heparin Sodium (Porcine) (Heparin Sodium,Porcine Flush 500 Unit/5 Ml Syringe) 500 unit IVFLUSH ONCE URI Stop: 06/11/23 23:59 Pembrolizumab 200 mg/ Sodium (Chloride) 58 mls @ 116 mls/hr IV ONCE URI Stop: 06/11/23 23:59 Last Admin: 06/11/23 12:04 Dose: 116 mls/hr Ondansetron HCl (Ondansetron Odt 8 Mg Tab.Rapdis) 8 mg TRANSLINGU ONCE URI Stop: 06/11/23 23:59 Last Admin: 06/11/23 11:51 Dose: 8 mg Home Medications Medication Instructions Recorded Confirmed Type ezetimibe 10 mg tablet (Zetia) 10 mg PO DAILY 12/21/22 06/11/23 History Allergies Allergy/AdvReac Type Severity Reaction Status Date / Time pollen extracts Allergy sneezing Verified 05/05/23 11:50 Exam Vital signs: Vital Signs Temp 98.2 F 06/11/23 11:16 Pulse 91 06/11/23 11:16 Resp 18 06/11/23 11:16 BP 137/72 06/11/23 11:16 Pulse Ox 96 06/11/23 11:16 O2 Del Method Room Air 06/11/23 11:16 Intake & Output 06/10/23 06/11/23 06/11/23 18:59 06:59 18:59 Other: Weight 84.9 kg [place] Weight in Grams 64755 Weight 84.9 kg BMI result Body Mass Index 29.3 - Constitutional Present: no acute distress - Routine HEENT Exam Head: Present: normal inspection - Routine Neck Exam Present: lymphadenopathy - Routine Respiratory Exam Present: CTAB. Absent: accessory muscle use - Routine Cardiovascular Exam Cardiovascular: Present: RRR, S1, S2 - Routine Abdominal Exam Present: soft. Absent: mass - Routine Extremities Exam Absent: joint swelling - Routine Skin Exam Present: intact. Absent: cyanosis - Routine Neurological Exam Present: alert, oriented X3. Absent: sensory deficit, motor deficit Data - Labs CBC & Chem 7: 06/10/23 08:10 06/10/23 08:10 Assessment and Plan Patient Active problem list reviewed?: Yes (1) Mass of lateral neck Status: Chronic Assessment and plan: 1. This is a 68-year-old male, presenting with metastatic non-small cell lung cancer diagnosed in December 2022, right lower lobe primary. Presented with left neck adenopathy, core biopsy of left cervical node performed 12/28/2022 showed poorly differentiated squamous cell carcinoma. Molecular studies showed PDL1 CPS of 25%, TPS 20%, TMB 3.2 m/mol, MSI stable. [employer] 648 gene panel showed no potentially actionable or biologically relevant pathogenic variants. Brain MRI performed 12/29/2022 showed heterogenously enhancing lesions involving right precentral gyrus and left posterior temporal lobe worrisome for intracranial metastatic disease. No midline shift. Lesion in the left posterior temporal lobe measuring 1 cm and 1.4 cm in the right precentral gyrus which was associated with small margin of edema. He was seen by Dr. Kathleen for radiation oncology. Repeat brain performed in March 2023 showed right precentral gyrus lesion to have decreased in size resolution of edema left lesion grew in size slightly. He reports episodes of nausea and emesis with mild headache. Repeat brain MRI is being ordered. He started treatment on 01/29/2023, carboplatin/Taxol and pembrolizumab every 3 weeks. He finished 4 cycles of combination therapy and is now on single agent pembrolizumab as maintenance. 2. Skin toxicity secondary to pembrolizumab. This is relatively mild. He has been prescribed hydrocortisone cream 2.5% apply topically 2 to 3 times a day. PET-CT has been ordered, insurance approval awaited. Follow-up in 3 weeks. - Time Spent With Patient Time Spent with Patient (in minutes): 15
--- NOTE | 2023-06-11 16:08 | MHC.HEMONC ---
Pt here for C7D1 Pembrolizumab. Labs drawn yesterday reviewed-okay to receive treatment today. #22 angio inserted in left forearm with blood return noted. Pt states he vomited x2 the other day-denies nausea. States he has diarrhea and constipation for 2 days after chemotherapy. Pre medicated with tylenol, benadryl, zofran. Dr Bourne into see pt. Pembrolizumab given as ordered-tolerated well. Peripheral IV removed-no edema or redness at site after removal of IV. Next appointment scheduled. Discharge packet given. Declines wheelchair for discharge
--- NOTE | 2023-06-30 08:36 | HO.HEMONCPA ---
Addendum entered by Taryn Brannon 07/06/23 13:56: PA APPROVED FOR CT ABDOMEN AND PELVIS AND CT CHEST AUTH # [id number] DOS 07/06/23 - 09/04/23 Addendum entered by Taryn Brannon 07/06/23 10:52: PA DENIED FOR PET/CT [id number] MD IS GOING TO ORDER CT ABDOMEN AND PELVIS Original Note: PA PENDING FOR PET/CT [id number] AWAITING DECISION FROM [facility] FOR [facility]
[2023-07-01 08:15] LABS: MANUAL DIFF FLAG NO
[2023-07-01 08:20] LABS: Basophils Absolute Auto 0.1 X10*3/uL (0.0-0.2); Basophils Percent Auto 0.5 % (0-2); Eosinophils Absolute Auto 0.3 X10*3/uL (0.0-0.4); Eosinophils Percent Auto 3.1 % (0-4); Hematocrit 44.2 % (42.0-52.0); Hemoglobin 14.8 g/dl (14.0-18.0); Imm Gran Abs Auto 0.06 X10*3/uL (0.00-0.03); Imm Gran Pct Auto 0.6 % (0.0-0.4); Lymphocytes Absolute Auto 1.3 X10*3/uL (1.2-4.9); Lymphocytes Percent Auto 12.4 % (20-40); Mean Corpuscular HGB Conc 33.5 g/dl (31.0-36.0); Mean Corpuscular Hemoglobin 29.5 pg (27.0-33.0); Mean Corpuscular Volume 88.2 fL (80.0-98.0); Mean Platelet Volume 8.5 fL (9.4-12.4); Monocytes Absolute Auto 0.9 X10*3/uL (0.1-1.2); Monocytes Percent Auto 8.9 % (2-11); Neutrophils Absolute Auto 7.9 x10*3/uL (2.0-8.3); Neutrophils Percent Auto 74.5 % (45-73); Platelet Count 296 X10*3/uL (160-400); Red Blood Count 5.01 X10*6/uL (4.60-5.80); Red Cell Distribution Width 14.1 % (11.0-16.0); White Blood Count 10.6 X10*3/uL (4.8-10.8)
[2023-07-01 08:41] LABS: Alanine Aminotransferase 23 U/L (0-40); Albumin Level 4.4 g/dL (3.5-5.0); Alkaline Phosphatase 80 U/L (39-117); Anion Gap 13 (12-20); Aspartate Amino Transferase 19 U/L (5-37); Bilirubin Total 0.4 mg/dL (0.0-1.0); Blood Urea Nitrogen 22 mg/dL (9-16); Calcium 10.3 mg/dL (8.4-10.2); Carbon Dioxide 27 mmol/L (22-29); Chloride 105 mmol/L (96-108); Creatinine Clr Calc Pharmacy 67.5; Estimated Glomerular Filt Rate > 60; Glucose Random 136 mg/dL (60-115); Potassium 4.3 mmol/L (3.3-5.1); Sodium 141 mmol/L (135-145); Total Protein 7.9 g/dL (6.5-8.0)
[2023-07-01 08:55] LABS: Thyroid Stimulating Hormone 0.86 uIU/mL (0.32-4.0)
--- NOTE | 2023-07-01 09:53 | MHC.HEMONC ---
Pre-chemo labs completed and reviewed.
--- NOTE | 2023-07-02 10:57 | P.PNHO-ONC_ITS ---
Medical Summary - Medical Summary Date of Service: 07/02/23 Chief complaint: Follow-up Primary Care Provider: Wayne Galdamez MD Medical Summary: Diagnosis: Left neck lymphadenopathy November 2022, squamous cell carcinoma. Patient presented for a routine physical in November 2022 and was noted to have swollen left neck lymph adenopathy. CT neck performed 12/08/2022 showed pathologically enlarged level 2 B lymph node in the left and a smaller left level IIB lymph node consistent with metastatic lymphadenopathy. 7 mm round enhancing focus in the left temporal lobe, MRI of brain with and without contrast was recommended. A 3.6 cm ground-glass opacity in the right upper lobe and multiple mediastinal lymph nodes with a right pleural effusion versus pleural thickening, recommend CT chest with contrast for further assessment. Asymmetric appearance of the oropharynx on the right which appears to be related to tortuosity of the right internal carotid artery. CT chest with contrast performed on 01/13/2023 showed large ill-defined mass lesion in the right lower lobe extending into the right middle lobe with adjacent consolidation. Innumerable satellite nodules seen throughout the right lower and middle lobes. Subcarinal lymph node measuring 1.7 cm. Core biopsy of left cervical node performed 12/28/2022 showed poorly differentiated squamous cell carcinoma. Molecular studies showed PDL1 CPS of 25%, TPS 20%, TMB 3.2 m/mol, MSI stable. [employer] 648 gene panel showed no potentially actionable or biologically relevant pathogenic variants. PET-CT performed at [facility] on 01/25/2023 showed intensely hypermetabolic necrotic mass replacing right lower lobe consistent with primary lung cancer. Minimally hypermetabolic nodules in bilateral upper lobes, hypermetabolic left cervical and subcarinal lymph nodes, 1.3 cm lytic lesion at T3 suspicious for metastasis as well as left adrenal gland uptake suspicious for metastatic disease. Brain MRI performed 12/29/2022 showed heterogenously enhancing lesions involving right precentral gyrus and left posterior temporal lobe worrisome for intracranial metastatic disease. No midline shift. Lesion in the left posterior temporal lobe measuring 1 cm and 1.4 cm in the right precentral gyrus which was associated with small margin of edema. He was seen by Dr. Kathleen for radiation oncology. Interval History Interval history: Patient is here in follow-up and scheduled treatment. Is accompanied by his today. They are here to discuss results of brain scan. He continues to feel well and denies any headache, dizziness or change in vision. Appetite is good. His energy level is good, he has no symptoms to report. Review of Systems - Constitutional Reports as per HPI, Denies fatigue, Denies lack of energy, Denies malaise PMFSH Medical History: Medical History (Last Reviewed 05/05/23 @ 11:50 by STEVIE Orozco) Patient denies medical problems Family History: Family History (Last Reviewed 05/05/23 @ 11:50 by STEVIE Orozco) Brother Diabetes mellitus Father Lung cancer Mother Stroke Surgical History: Surgical History (Last Reviewed 05/05/23 @ 11:50 by STEVIE Orozco) History of tonsillectomy History of tonsillectomy Social History: Social History (Last Reviewed 05/05/23 @ 11:50 by STEVIE Orozco) Living Situation History: Household Members: Spouse Housing: House Do you presently have visiting nurse or other home services: No Alcohol History Details: 1. How often do you have a drink containing alcohol?: a. Never Tobacco History: Patient Tobacco Use Status: Former Tobacco user Tobacco use type: Cigarette Years Smoked: quit smoking 6 months ago e-Cigarette/Vaping Use: Former Use Second Hand Smoke Exposure: No Substance Use History: Use of substances other than those prescribed or required for medical reasons : No Domestic Abuse History: Have you been hit, kicked, punched, or otherwise hurt by someone within the past year? If so, by whom?: No Do you feel safe in your current relationship?: Yes Homicidal Assessment: Do you have thoughts of harming others: None Do you have a plan to hurt others: No Plan Do you have the means to hurt others: No Nutrition Assessment: Recently lost weight without trying: No Occupation Assessmet: service: No Current occupational status: retired Current occupational exposures/hazards: No Home Medications and Allergies Current Medications: Current Medications Acetaminophen (Acetaminophen 325 Mg Tablet) 650 mg PO ONCE URI Stop: 07/02/23 23:59 Diphenhydramine HCl (Diphenhydramine Hcl 25 Mg Capsule) 25 mg PO ONCE URI Stop: 07/02/23 23:59 Heparin Sodium (Porcine) (Heparin Sodium,Porcine Flush 500 Unit/5 Ml Syringe) 500 unit IVFLUSH ONCE URI Stop: 07/02/23 23:59 Pembrolizumab 200 mg/ Sodium (Chloride) 58 mls @ 116 mls/hr IV ONCE URI Stop: 07/02/23 23:59 Ondansetron HCl (Ondansetron Odt 8 Mg Tab.Rapdis) 8 mg TRANSLINGU ONCE URI Stop: 07/02/23 23:59 Home Medications Medication Instructions Recorded Confirmed Type ezetimibe 10 mg tablet (Zetia) 10 mg PO DAILY 12/21/22 07/02/23 History Allergies Allergy/AdvReac Type Severity Reaction Status Date / Time pollen extracts Allergy sneezing Verified 05/05/23 11:50 Exam Vital signs: Vital Signs Temp 98.2 F 06/11/23 11:16 Pulse 91 06/11/23 11:16 Resp 18 06/11/23 11:16 BP 137/72 06/11/23 11:16 Pulse Ox 96 06/11/23 11:16 O2 Del Method Room Air 06/11/23 11:16 Weight 84.9 kg BMI result Body Mass Index 29.3 - Constitutional Present: no acute distress - Routine HEENT Exam Head: Present: normal inspection - Routine Neck Exam Present: lymphadenopathy - Routine Respiratory Exam Present: CTAB. Absent: accessory muscle use - Routine Cardiovascular Exam Cardiovascular: Present: RRR, S1, S2 - Routine Abdominal Exam Present: soft. Absent: mass - Routine Extremities Exam Absent: joint swelling - Routine Skin Exam Present: intact. Absent: cyanosis - Routine Neurological Exam Present: alert, oriented X3. Absent: sensory deficit, motor deficit Data - Labs CBC & Chem 7: 07/01/23 08:14 07/01/23 08:14 Assessment and Plan Patient Active problem list reviewed?: Yes (1) Mass of lateral neck Status: Chronic Assessment and plan: 1. This is a 68-year-old male, presenting with metastatic non-small cell lung cancer diagnosed in December 2022, right lower lobe primary. Presented with left neck adenopathy, core biopsy of left cervical node performed 12/28/2022 showed poorly differentiated squamous cell carcinoma. Molecular studies showed PDL1 CPS of 25%, TPS 20%, TMB 3.2 m/mol, MSI stable. [employer] 648 gene panel showed no potentially actionable or biologically relevant pathogenic variants. Brain MRI performed 12/29/2022 showed heterogenously enhancing lesions involving right precentral gyrus and left posterior temporal lobe worrisome for intracranial metastatic disease. No midline shift. Lesion in the left posterior temporal lobe measuring 1 cm and 1.4 cm in the right precentral gyrus which was associated with small margin of edema. He was seen by Dr. Kathleen for radiation oncology. Repeat brain performed in March 2023 showed right precentral gyrus lesion to have decreased in size resolution of edema left lesion grew in size slightly. He started treatment on 01/29/2023, carboplatin/Taxol and pembrolizumab every 3 weeks. He finished 4 cycles of combination therapy and is now on single agent pembrolizumab as maintenance. Surveillance brain MRI performed 06/18/2023 is showing progression of brain lesions which are ranging in size from 0.5 mm to 1.5 cm. Largest in right temporal lobe, few additional lesions measuring 1.3 and 0.5 mm. In the left parietal lobe there was mild surrounding vasogenic edema. He does not have any symptoms. He is being started on dexamethasone 2 mg b.i.d.. He is being referred to [facility] for consideration of stereotactic radiation therapy. I discussed with patient and his that if he has disease progression outside his brain, he will need to be switched to second-line chemotherapy. If progression is only in the brain, he can stay on pembrolizumab after local therapy for his brain either with stereotactic radiation whole-brain radiation therapy. PET-CT has been ordered, insurance approval awaited. Follow-up in 3 weeks. - Time Spent With Patient Time Spent with Patient (in minutes): 20
[2023-07-02] MEDS: Acetaminophen 325 MG TABLET 650 MG PO (11:20)
[2023-07-02] MEDS: Ondansetron ODT 8 MG TAB.RAPDIS TRANSLINGU (11:20)
[2023-07-02] MEDS: diphenhydrAMINE HCL 25 MG CAPSULE PO (11:21)
[2023-07-02 12:05] VITALS: BP 176/82; PULSE 88; RESP 17; TEMP 36.4; O2SAT 97
--- NOTE | 2023-07-02 16:05 | MHC.HEMONC ---
Pt here for C8D1 Pembrolizumab. Labs drawn yesterday reviewed-okay to receive treatment today. Dr Bourne into see pt. Pt has appointment with Dr Kathleen on 07/29/23 for ? radiation therapy. Pt started on dexamethasone 2mg BID-pt and aware and will pick up man script today. #22 angio inserted in left hand with blood return noted. Pre medicated with tylenol, benadryl, zofran. Pembrolizumab given as ordered-tolerated well. Peripheral IV removed-no edema or redness at site after removal of IV. Next appointment scheduled. Discharge packet given. Instructed to call with any concerns or questions-verbalizes understanding of information given. Declines wheelchair for discharge home
[2023-07-22 08:21] LABS: MANUAL DIFF FLAG NO
[2023-07-22 08:25] LABS: Basophils Percent Auto 0.2 % (0-2); Eosinophils Absolute Auto 0.1 X10*3/uL (0.0-0.4); Eosinophils Percent Auto 0.8 % (0-4); Hemoglobin 15.7 g/dl (14.0-18.0); Imm Gran Abs Auto 0.34 X10*3/uL (0.00-0.03); Imm Gran Pct Auto 2.6 % (0.0-0.4); Lymphocytes Absolute Auto 1.7 X10*3/uL (1.2-4.9); Mean Corpuscular HGB Conc 33.4 g/dl (31.0-36.0); Mean Corpuscular Hemoglobin 29.4 pg (27.0-33.0); Mean Platelet Volume 8.8 fL (9.4-12.4); Monocytes Percent Auto 7.3 % (2-11); Neutrophils Percent Auto 76.1 % (45-73); Platelet Count 259 X10*3/uL (160-400); Red Blood Count 5.34 X10*6/uL (4.60-5.80); Red Cell Distribution Width 15.4 % (11.0-16.0); White Blood Count 13.2 X10*3/uL (4.8-10.8)
[2023-07-22 08:48] LABS: Alanine Aminotransferase 167 U/L (0-40); Albumin Level 4.1 g/dL (3.5-5.0); Alkaline Phosphatase 101 U/L (39-117); Anion Gap 15 (12-20); Aspartate Amino Transferase 20 U/L (5-37); Bilirubin Total 0.5 mg/dL (0.0-1.0); Blood Urea Nitrogen 27 mg/dL (9-16); Calcium 10.3 mg/dL (8.4-10.2); Carbon Dioxide 26 mmol/L (22-29); Chloride 100 mmol/L (96-108); Creatinine Clr Calc Pharmacy 91.6; Estimated Glomerular Filt Rate > 60; Glucose Random 135 mg/dL (60-115); Potassium 4.5 mmol/L (3.3-5.1); Sodium 136 mmol/L (135-145); Total Protein 7.8 g/dL (6.5-8.0)
[2023-07-22 09:02] VITALS: BP 148/67; PULSE 71; RESP 18; TEMP 36.6; O2SAT 99; BMI 28.3
[2023-07-22 09:02] LABS: Thyroid Stimulating Hormone 1.22 uIU/mL (0.32-4.0)
--- NOTE | 2023-07-22 10:31 | MHC.HEMONC ---
Pt here for pre chemo lab draw. Blood drawn by handkerchief sample clerk-specimen to lab.
[2023-07-23 11:04] VITALS: BP 143/82; PULSE 92; RESP 18; TEMP 36.4; O2SAT 96; BMI 29.7
[2023-07-23] MEDS: diphenhydrAMINE HCL 25 MG CAPSULE PO (11:11)
[2023-07-23] MEDS: Ondansetron ODT 8 MG TAB.RAPDIS TRANSLINGU (11:11)
[2023-07-23] MEDS: Acetaminophen 325 MG TABLET 650 MG PO (11:12)
--- NOTE | 2023-07-23 11:16 | PM.HEMONCPN ---
Medical Summary - Medical Summary Date of Service: 07/23/23 Chief complaint: Follow-up and scheduled treatment Primary Care Provider: Wayne Galdamez MD Medical Summary: Diagnosis: Left neck lymphadenopathy November 2022, squamous cell carcinoma. Patient presented for a routine physical in November 2022 and was noted to have swollen left neck lymph adenopathy. CT neck performed 12/08/2022 showed pathologically enlarged level 2 B lymph node in the left and a smaller left level IIB lymph node consistent with metastatic lymphadenopathy. 7 mm round enhancing focus in the left temporal lobe, MRI of brain with and without contrast was recommended. A 3.6 cm ground-glass opacity in the right upper lobe and multiple mediastinal lymph nodes with a right pleural effusion versus pleural thickening, recommend CT chest with contrast for further assessment. Asymmetric appearance of the oropharynx on the right which appears to be related to tortuosity of the right internal carotid artery. CT chest with contrast performed on 01/13/2023 showed large ill-defined mass lesion in the right lower lobe extending into the right middle lobe with adjacent consolidation. Innumerable satellite nodules seen throughout the right lower and middle lobes. Subcarinal lymph node measuring 1.7 cm. Core biopsy of left cervical node performed 12/28/2022 showed poorly differentiated squamous cell carcinoma. Molecular studies showed PDL1 CPS of 25%, TPS 20%, TMB 3.2 m/mol, MSI stable. [employer] 648 gene panel showed no potentially actionable or biologically relevant pathogenic variants. PET-CT performed at [place] on 01/25/2023 showed intensely hypermetabolic necrotic mass replacing right lower lobe consistent with primary lung cancer. Minimally hypermetabolic nodules in bilateral upper lobes, hypermetabolic left cervical and subcarinal lymph nodes, 1.3 cm lytic lesion at T3 suspicious for metastasis as well as left adrenal gland uptake suspicious for metastatic disease. Brain MRI performed 12/29/2022 showed heterogenously enhancing lesions involving right precentral gyrus and left posterior temporal lobe worrisome for intracranial metastatic disease. No midline shift. Lesion in the left posterior temporal lobe measuring 1 cm and 1.4 cm in the right precentral gyrus which was associated with small margin of edema. He was seen by Dr. Kathleen for radiation oncology. Interval History Interval history: Patient is here in follow-up and scheduled treatment. He is going to be started on radiation treatment for his brain lesions next week at [facility]. He is now on dexamethasone 2 mg b.i.d.. Last night he experienced some nausea and emesis which has now resolved. He denies abdominal pain, fever, chills, diarrhea, headache or dizziness. Review of Systems - Constitutional Reports as per HPI - Cardiovascular Reports no additional cardiovascular complaints - Respiratory Reports no additional respiratory complaints [facility] Medical History: Medical History (Last Reviewed 07/21/23 @ 09:23 by Jackie Jaquez [facility]) Patient denies medical problems Family History: Family History (Last Reviewed 07/21/23 @ 09:23 by Jackie Jaquez CMA) Brother Diabetes mellitus Father Lung cancer Mother Stroke Surgical History: Surgical History (Last Reviewed 07/21/23 @ 09:23 by Jackie Jaquez CMA) History of tonsillectomy History of tonsillectomy Social History: Social History (Last Reviewed 07/21/23 @ 09:23 by Jackie Jaquez CMA) Living Situation History: Household Members: Spouse Housing: House Do you presently have visiting nurse or other home services: No Tobacco History: Patient Tobacco Use Status: Former Tobacco user Tobacco use type: Cigarette Years Smoked: quit smoking 6 months ago e-Cigarette/Vaping Use: Former Use Second Hand Smoke Exposure: No Occupation Assessmet: service: No Current occupational status: retired Current occupational exposures/hazards: No Home Medications and Allergies Current Medications: Current Medications Acetaminophen (Acetaminophen 325 Mg Tablet) 650 mg PO ONCE URI Stop: 07/23/23 23:59 Last Admin: 07/23/23 11:12 Dose: 650 mg Diphenhydramine HCl (Diphenhydramine Hcl 25 Mg Capsule) 25 mg PO ONCE URI Stop: 07/23/23 23:59 Last Admin: 07/23/23 11:11 Dose: 25 mg Heparin Sodium (Porcine) (Heparin Sodium,Porcine Flush 500 Unit/5 Ml Syringe) 500 unit IVFLUSH ONCE URI Stop: 07/23/23 23:59 Pembrolizumab 200 mg/ Sodium (Chloride) 58 mls @ 116 mls/hr IV ONCE URI Stop: 07/23/23 23:59 Ondansetron HCl (Ondansetron Odt 8 Mg Tab.Rapdis) 8 mg TRANSLINGU ONCE URI Stop: 07/23/23 23:59 Last Admin: 07/23/23 11:11 Dose: 8 mg Home Medications Medication Instructions Recorded Confirmed Type ezetimibe 10 mg tablet (Zetia) 10 mg PO DAILY 12/21/22 07/23/23 History Allergies Allergy/AdvReac Type Severity Reaction Status Date / Time pollen extracts Allergy sneezing Verified 07/21/23 09:20 Exam Vital signs: Vital Signs Temp 97.5 F 07/23/23 11:04 Pulse 92 07/23/23 11:04 Resp 18 07/23/23 11:04 BP 143/82 H 07/23/23 11:04 Pulse Ox 96 07/23/23 11:04 O2 Del Method Room Air 07/23/23 11:04 Intake & Output 07/22/23 07/23/23 07/23/23 18:59 06:59 18:59 Other: Weight 82 kg 86 kg Weight in Grams [id number] Weight 86 kg BMI result Body Mass Index 29.7 - Constitutional Present: no acute distress - Routine HEENT Exam Head: Present: normal inspection - Routine Neck Exam Present: lymphadenopathy - Routine Respiratory Exam Present: CTAB. Absent: accessory muscle use - Routine Cardiovascular Exam Cardiovascular: Present: RRR, S1, S2 - Routine Abdominal Exam Present: soft. Absent: mass - Routine Extremities Exam Absent: joint swelling - Routine Skin Exam Present: intact. Absent: cyanosis - Routine Neurological Exam Present: alert, oriented X3. Absent: sensory deficit, motor deficit Data - Labs CBC & Chem 7: 07/22/23 08:20 07/22/23 08:20 Assessment and Plan Patient Active problem list reviewed?: Yes (1) Mass of lateral neck Status: Chronic Assessment and plan: 1. This is a 68-year-old male, presenting with metastatic non-small cell lung cancer diagnosed in December 2022, right lower lobe primary. Presented with left neck adenopathy, core biopsy of left cervical node performed 12/28/2022 showed poorly differentiated squamous cell carcinoma. Molecular studies showed PDL1 CPS of 25%, TPS 20%, TMB 3.2 m/mol, MSI stable. [employer] 648 gene panel showed no potentially actionable or biologically relevant pathogenic variants. Brain MRI performed 12/29/2022 showed heterogenously enhancing lesions involving right precentral gyrus and left posterior temporal lobe worrisome for intracranial metastatic disease. No midline shift. Lesion in the left posterior temporal lobe measuring 1 cm and 1.4 cm in the right precentral gyrus which was associated with small margin of edema. He was seen by Dr. Kathleen for radiation oncology. Repeat brain performed in March 2023 showed right precentral gyrus lesion to have decreased in size resolution of edema left lesion grew in size slightly. He started treatment on 01/29/2023, carboplatin/Taxol and pembrolizumab every 3 weeks. He finished 4 cycles of combination therapy and is now on single agent pembrolizumab as maintenance. Surveillance brain MRI performed 06/18/2023 is showing progression of brain lesions which are ranging in size from 0.5 mm to 1.5 cm. Largest in right temporal lobe, few additional lesions measuring 1.3 and 0.5 mm. In the left parietal lobe there was mild surrounding vasogenic edema. He does not have any symptoms. He is being started on dexamethasone 2 mg b.i.d.. He is being referred to [facility] for consideration of stereotactic radiation therapy. He will be starting radiation therapy next week. I have asked him to reduce dexamethasone to 2 mg once a day. PET scan was denied by insurance carrier. CT chest/abdomen and pelvis with IV contrast has been ordered. I discussed with patient and his that if he has disease progression outside his brain, he will need to be switched to second-line chemotherapy. If progression is only in the brain, he can stay on pembrolizumab after local therapy for his brain either with stereotactic radiation whole-brain radiation therapy. 2. Elevation of ALT. This will be repeated next week. Rest of liver enzymes are normal. ? Secondary to dexamethasone. Follow-up in 3 weeks. - Time Spent With Patient Time Spent with Patient (in minutes): 15
--- NOTE | 2023-07-23 16:15 | MHC.HEMONC ---
Pt here for C9D1 Pembrolizumab. Labs drawn yesterday reviewed-okay to receive treatment today. #22 angio inserted in right hand with blood return noted. Pre medicated with tylenol, benadryl, zofran. Pembrolizumab given as ordered-tolerated well. Dr Bourne into see pt. Peripheral IV removed-no edema or redness at site after removal of IV. Next appointment scheduled-discharge packet given. Pt states he will be starting on radiation therapy in next few weeks. Declines wheelchair for discharge
--- NOTE | 2023-07-30 09:38 | MHC.HEMONC ---
Pt was in for follow up labs today, as he had elevated LFTs last week. Today, LFTs have not improved, but worsened. Dr. Bourne was informed, is considering liver U/S, but wants pt to return in 1 week for f/u labs. Nurse called pt and updated him, scheduled him for repeat lab draw next , 08/05/23.
--- NOTE | 2023-08-02 10:58 | MHC.HEMONC ---
Triage call-received call from pt's stating pt started radiation treatment last week in [place]. [facility] pt has been extremely weak with vomiting since radiation treatment. [facility] pt was scheduled today for next radiation treatment. [facility] pt required assistance to bathroom this morning, on return to bed pt became confused and disorientated with continued weakness. called radiation treatment department in [place] to report pt's condition and was advised to call 911. Per pt is being transported via ambulance to [facility] ED. Dr Bourne notified
--- NOTE | 2023-08-05 08:27 | MHC.HEMONC ---
Pt is inpatient at [facility] [place]
--- NOTE | 2023-08-11 11:51 | HO.HEMONCPA ---
Addendum entered by Taryn Brannon 08/18/23 11:54: PA DENIED FOR PET/CT SKULL TO THIGH [id number] MD NOTIFIED Addendum entered by Taryn Brannon 08/18/23 10:28: Denied peer to peer done awaiting decision Original Note: PA PENDING FOR PET/CT SKULL TO THIGH [id number] CASE # [id number] AWAITING DECISION FROM [facility] FOR [facility]
[2023-08-13 11:03] VITALS: BP 140/79; PULSE 91; RESP 18; TEMP 36.1; O2SAT 96
--- NOTE | 2023-08-13 11:53 | MHC.HEMONC ---
Pt present with for chemo teach with Docetaxel. Reviewed treatment plan, frequency of treatment,length of treatment, potential side effects, and pre medications. Instructed to continue on prescribed dexamethasone as ordered. Pt notified he will need to take dexamethasone day before treatment and 2 days after treatment-verbalizes understanding of information given. All questions answered to pt and 's satisfaction. Pt aware of next chemo therapy appointment scheduled on 08/19/23 with lab draw on 08/18/23. Chemo consent obtained. Instructed to call with any questions or concerns
--- NOTE | 2023-08-19 08:27 | MHC.HEMONC ---
Pt here for pre chemo lab draw. Blood drawn by cad programmer-specimen to lab.
[2023-08-19 08:29] LABS: Hematocrit 47.4 % (42.0-52.0); Hemoglobin 15.7 g/dl (14.0-18.0); Mean Corpuscular HGB Conc 33.1 g/dl (31.0-36.0); Mean Corpuscular Hemoglobin 29.3 pg (27.0-33.0); Mean Corpuscular Volume 88.6 fL (80.0-98.0); Platelet Count 316 X10*3/uL (160-400); Red Blood Count 5.35 X10*6/uL (4.60-5.80); Red Cell Distribution Width 17.2 % (11.0-16.0); White Blood Count 27.9 X10*3/uL (4.8-10.8)
[2023-08-19 08:51] LABS: Alanine Aminotransferase 69 U/L (0-40); Albumin Level 4.1 g/dL (3.5-5.0); Alkaline Phosphatase 101 U/L (39-117); Anion Gap 14 (12-20); Aspartate Amino Transferase 17 U/L (5-37); Bilirubin Total 0.7 mg/dL (0.0-1.0); Blood Urea Nitrogen 35 mg/dL (9-16); Calcium 10.7 mg/dL (8.4-10.2); Carbon Dioxide 29 mmol/L (22-29); Chloride 95 mmol/L (96-108); Creatinine Clr Calc Pharmacy 74.2; Estimated Glomerular Filt Rate > 60; Glucose Random 119 mg/dL (60-115); Potassium 5.1 mmol/L (3.3-5.1); Sodium 133 mmol/L (135-145); Total Protein 7.7 g/dL (6.5-8.0)
[2023-08-19 09:03] LABS: Band Neutrophils Percent 1 % (3-5); Lymphocytes Absolute Manual 1.4 X10*3/uL (1.2-4.9); Lymphocytes Percent Manual 5 % (20-40); Metamyelocytes Absolute 0.3 X10*3/uL; Metamyelocytes Percent 1 %; Monocytes Absolute Manual 0.6 X10*3/uL (0.1-1.2); Monocytes Percent Manual 2 % (2-11); Myelocytes Absolute 0.8 X10*/uL; Myelocytes Percent 3 %; Neutrophils Absolute Manual 24.6 X10*3/uL (2.0-8.3); Neutrophils Percent Manual 87 % (45-73); Promyelocytes Absolute 0.3 X10*3/uL; Promyelocytes Percent 1 %
[2023-08-19 09:04] LABS: Platelet Estimate NORMAL (NORMAL); Platelet Morphology Comment NORMAL; RBC Morphology NORMAL
[2023-08-19 09:05] LABS: Thyroid Stimulating Hormone 0.64 uIU/mL (0.32-4.0)
--- NOTE | 2023-08-19 16:10 | MHC.HEMONC ---
Lab results reviewed by Dr Bourne. Pt's called and instructed to decrease dexamethasone to 2 mg twice a day for 5 days follow by 1mg twice a day for 5 days then stop. Only to take dexamethasone day before and day after chemotherapy after the 10 day taper of dexamethasone per Dr Bourne order- and pt notified and verbalizes understanding of information
[2023-08-20 10:56] VITALS: BP 111/68; PULSE 102; RESP 18; TEMP 36.6; O2SAT 98; BMI 27.8
[2023-08-20] MEDS: diphenhydrAMINE HCL 25 MG CAPSULE PO (11:35)
[2023-08-20] MEDS: Famotidine 20 MG TABLET PO (11:35)
[2023-08-20] MEDS: dexAMETHasone sod phosphate/NS 12 MG/50 ML PIGGYBACK 200 MG IV (11:36)
--- NOTE | 2023-08-20 13:46 | MHC.HEMONC ---
Pt here for C1D1 Docetaxel. Labs drawn yesterday reviewed by Dr Pelletier to receive treatment today. Pt instructed on dexamethasone taper yesterday. #24 angio inserted in left hand with blood return noted. Pre medicated with pepcid, benadryl, dexamethasone, zofran, Docetaxel given as ordered-tolerated well. Peripheral IV removed-no edema or redness at site after removal of IV. Next appointments scheduled. Discharge packet given. Instructed to call department with nay questions or concerns-verbalizes understanding of information given. Declines wheelchair for discharge.
--- NOTE | 2023-08-25 13:06 | MHC.HEMONC ---
Triage call:Received call from [facility]. Patient has been experiencing diarrhea since Wednesday (first treatment with Docetaxel wednesday) He reports minimal relief with use of Imodium. Also reports discomfort/burning to hemorrhoids. Dr. Bourne notified - order for Lomotil sent to pharmacy. Instructed and patient to increase fluid intake especially with electrolytes and bland diet to start. Recommended Anusol, perparation H, and or witch diogo pads for relief of hemorrhoids. Patient is scheduled for labs on Wednesday08/27/23- hydration appt can be added if needed.
[2023-08-27 09:48] LABS: Basophils Percent Auto 0.9 % (0-2); Eosinophils Percent Auto 0.9 % (0-4); Hematocrit 42.6 % (42.0-52.0); Hemoglobin 15.1 g/dl (14.0-18.0); Imm Gran Abs Auto 0.01 X10*3/uL (0.00-0.03); Imm Gran Pct Auto 0.9 % (0.0-0.4); Lymphocytes Absolute Auto 0.5 X10*3/uL (1.2-4.9); MANUAL DIFF FLAG SCAN; Mean Corpuscular HGB Conc 35.4 g/dl (31.0-36.0); Mean Corpuscular Hemoglobin 30.1 pg (27.0-33.0); Mean Platelet Volume 9.6 fL (9.4-12.4); Monocytes Absolute Auto 0.1 X10*3/uL (0.1-1.2); Monocytes Percent Auto 13.2 % (2-11); Neutrophils Absolute Auto 0.4 x10*3/uL (2.0-8.3); Neutrophils Percent Auto 34.1 % (45-73); Platelet Count 171 X10*3/uL (160-400); Red Blood Count 5.01 X10*6/uL (4.60-5.80); Red Cell Distribution Width 16.3 % (11.0-16.0); SCAN SMEAR FLAG 1
[2023-08-27 09:53] VITALS: BP 109/62; PULSE 120; RESP 18; TEMP 36.8; O2SAT 98
[2023-08-27 09:59] LABS: White Blood Count 1.1 X10*3/uL (4.8-10.8)
[2023-08-27 10:09] LABS: SLIDE REVIEW VERIFIED
[2023-08-27 10:13] LABS: Alanine Aminotransferase 37 U/L (0-40); Albumin Level 3.6 g/dL (3.5-5.0); Alkaline Phosphatase 79 U/L (39-117); Anion Gap 14 (12-20); Aspartate Amino Transferase 18 U/L (5-37); Bilirubin Total 0.9 mg/dL (0.0-1.0); Blood Urea Nitrogen 32 mg/dL (9-16); Calcium 9.8 mg/dL (8.4-10.2); Carbon Dioxide 23 mmol/L (22-29); Chloride 93 mmol/L (96-108); Creatinine Clr Calc Pharmacy 67.1; Estimated Glomerular Filt Rate > 60; Glucose Random 140 mg/dL (60-115); Magnesium 1.7 mg/dL (1.6-2.6); Potassium 5.2 mmol/L (3.3-5.1); Sodium 125 mmol/L (135-145); Total Protein 6.9 g/dL (6.5-8.0)
[2023-08-27] MEDS: 0.9 % Sodium Chloride 1,000 ML 500 ML IV (10:30)
--- NOTE | 2023-08-27 10:47 | HO.HEMONCPA ---
NO PA REQUIRED FOR NEULASTA [id number] COVERED UNDER MEDICAL PART B BENEFITS
[2023-08-27] MEDS: Sodium Chloride Tab 1 GM TABLET PO (11:47)
[2023-08-27 12:11] LABS: Cortisol Random 5.2 ug/dL
--- NOTE | 2023-08-27 13:09 | MHC.HEMONC ---
NaCl 1GM by mouth 3 times daily called in per Dr Arguello.
--- NOTE | 2023-08-27 14:05 | MHC.HEMONC ---
Pt here for complaints of sore throat,4-5 episodes of diarrhea not relieved with lomotil. Requesting hydration. states pt has a rectal hemorrhoid which has been bleeding-using witch diogo pads and preparation H to area with some relief. Labs drawn by heater operator helper-specimen to lab. #24 angio inserted in right hand with blood return noted. Lab results reviewed-WBC 1.1,HGB 15.1, HCT 42.6,PLATELETS 171, ANC 0.4-Labs reported to Dr Arguello. Plan for 1000 ml 0.9% NS- infused as ordered. One gram sodium chloride orally and Neulasta SC left arm given as ordered-tolerated well. No oral lesions noted upon visual inspection of mouth-plan for magic mouth wash at home. Plan for pt to increase dexamethasone to 4 mg BID-new script sent to pharmacy. Pt to be started on Sodium Chloride oral medication at home-script sent to pharmacy. Pt states he feels better after hydration. Next appointment scheduled-pt to return next Wednesday09/01/23 for repeat labs. Pt instructed to go to ED over weekend if he feels ill-verbalizes understanding of information given. Peripheral IV removed-no edema or redness at site after removal of IV. Discharge packet given. Discharged to front of hospital via wheelchair
[2023-09-01 10:20] LABS: Hematocrit 35.9 % (42.0-52.0); Hemoglobin 12.3 g/dl (14.0-18.0); Mean Corpuscular HGB Conc 34.3 g/dl (31.0-36.0); Mean Corpuscular Hemoglobin 29.8 pg (27.0-33.0); Mean Corpuscular Volume 86.9 fL (80.0-98.0); Mean Platelet Volume 8.9 fL (9.4-12.4); NRBC Pct Auto 0.2 /100WBC (0.0-0.2); Platelet Count 192 X10*3/uL (160-400); Red Blood Count 4.13 X10*6/uL (4.60-5.80)
[2023-09-01 10:34] LABS: WBC ABN SCTR FOR CBC 1
[2023-09-01 10:35] LABS: Alanine Aminotransferase 240 U/L (0-40); Albumin Level 3.2 g/dL (3.5-5.0); Alkaline Phosphatase 327 U/L (39-117); Anion Gap 12 (12-20); Aspartate Amino Transferase 81 U/L (5-37); Bilirubin Total 0.4 mg/dL (0.0-1.0); Blood Urea Nitrogen 27 mg/dL (9-16); Calcium 9.8 mg/dL (8.4-10.2); Carbon Dioxide 25 mmol/L (22-29); Chloride 101 mmol/L (96-108); Creatinine Clr Calc Pharmacy 86.2; Estimated Glomerular Filt Rate > 60; Glucose Random 137 mg/dL (60-115); Potassium 4.4 mmol/L (3.3-5.1); Sodium 134 mmol/L (135-145); Total Protein 6.2 g/dL (6.5-8.0); White Blood Count 66.2 X10*3/uL (4.8-10.8)
[2023-09-01 10:57] LABS: Atypical Lymph Absolute Manual 0.7 x10*3/uL; Atypical Lymphs Percent Manual 1 % (0-6); Band Neutrophils Percent 17 % (3-5); Metamyelocytes Percent 9 %; Monocytes Absolute Manual 0.7 X10*3/uL (0.1-1.2); Monocytes Percent Manual 1 % (2-11); Myelocytes Absolute 2.6 X10*/uL; Myelocytes Percent 4 %; Neutrophils Absolute Manual 56.3 X10*3/uL (2.0-8.3); Neutrophils Percent Manual 68 % (45-73); Nucleated Red Blood Cells 1 /100WBC (0-0)
[2023-09-01 11:03] LABS: Platelet Estimate NORMAL (NORMAL); Platelet Morphology Comment NORMAL; RBC Morphology NORMAL
--- NOTE | 2023-09-01 11:24 | MHC.HEMONC ---
wbc 66.2 dr liam torres, pt on [facility]
--- NOTE | 2023-09-06 11:07 | MHC.HEMONC ---
Triage call-received call from pt's Natalee ([phone]) who states pt is currently in ICU at [facility] with double pneumonia. states she will call tomorrow with status update
--- NOTE | 2023-09-10 14:36 | MHC.HEMONC ---
Triage call-received call from who states pt remains in ICU on high flow oxygen at 55%.
--- NOTE | 2023-09-14 13:30 | MHC.HEMONC ---
Triage call-spoke with pt's Maru who states pt was made [employer] at [facility]-Dr Bourne notified
== END 2023-09-15 | disposition home or self-care (01) ==
LOC: HO.ONC 10:00
PROVIDERS: Internal Medicine Medical Oncology; PCP Family Medicine; Visit Provider Internal Medicine
DX: Z51.11 Encounter for antineoplastic chemotherapy (principal); C34.31 Malignant neoplasm of lower lobe, right bronchus or lung; C77.0 Secondary and unspecified malignant neoplasm of lymph nodes of head, face and neck; R90.89 Other abnormal findings on diagnostic imaging of central nervous system; Z79.899 Other long term (current) drug therapy; Z76.89 Persons encountering health services in other specified circumstances
CPT/HCPCS: 36415; 80053; 82378; 82533; 83615; 83735; 84443; 85007; 85025; 85027; 85610; 86704; 86706; 87340; 96361; 96366; 96367; 96372; 96375; 96377; 96413; 96415; 96417; 99205; 99211; 99214; 99215; J1100; J1200; J1453; J2405; J2506; J9045; J9171; J9267; J9271